=== PATIENT | female | born 1965 | race Caucasian/White ===

== ENCOUNTER 2016-03-26 11:43 | Emergency (ER) | payer BC ==
[2016-03-26 11:48] VITALS: BP 163/97
--- NOTE | 2016-03-26 13:07 | RAD ---
Indication: LEFT knee pain post fall. Comparison: None. Technique: AP, tunnel, lateral, sunrise views LEFT knee. Report: Small suprapatellar joint effusion. Subtle irregular contour at the undersurface of the patella on the lateral view may reflect an an osteochondral fracture. Minimal osteophytosis without significant joint space narrowing. Mild anterior soft tissue swelling. IMPRESSION: Small suprapatellar joint effusion and suggestion of potential osteochondral fracture at the undersurface of the patella. Correlate with clinical data and consider MRI for further assessment if deemed appropriate.
--- NOTE | 2016-04-02 15:35 | ED ---
Lower Extremity - HPI Summary HPI Summary: Pt here w/ fall and B/L knee pain Lt > Rt. Was sitting in her 's hospital room and when she stood to move, her foot got caught in a wire and she tripped forward, landing on her knees. Was able to stand and walk after however pain in Lt knee is persisting so decided to be seen for medical evaluation. Lt knee pain is worse w/ flexion and extension. No karol swelling or deformity and denies numbness, tingling, weakness. No known h/o knee pathology prior to fall. Rt knee is just a little sore but pain is not worse w/ movement. Denies injury to UE's and no pain in head or neck. She does admit to neuropathy in B/L feet d/ t diabetes. - History of Current Complaint Chief Complaint: EDExtremityLower Stated Complaint: FALL / LT KNEE INJURY Time Seen by Provider: 03/26/16 12:26 Hx Obtained From: Patient Pain Intensity: 6 Pain Scale Used: 0-10 Numeric - Allergies/Home Medications Allergies/Adverse Reactions: Allergies Allergy/AdvReac Type Severity Reaction Status Date / Time Penicillins AdvReac Rash Verified 03/26/16 11:48 Pregabalin [From Lyrica] AdvReac Swelling Verified 03/26/16 11:48 PMH/Surg Hx/FS Hx/Imm Hx Previously Healthy: Yes Endocrine/Hematology History: Reports: Hx Diabetes Denies: Hx Anticoagulant Therapy, Hx Blood Disorders Musculoskeletal History: Denies: Hx Arthritis Neurological History: Reports: Other Neuro Impairments/Disorders - Neuropathy both feet Infectious Disease History: No Infectious Disease History: Denies: Traveled Outside the [place] in Last 30 Days - Social History Lives: With Family - Alcohol Use: Rare Substance Use Type: Reports: None Smoking Status (MU): Former Smoker Type: Cigarettes Review of Systems Negative: Photophobia, Blurred Vision, Diplopia Negative: Dental Pain Negative: Chest Pain Negative: Shortness Of Breath Negative: Vomiting, Nausea Negative: hematuria, incontinence Musculoskeletal: Other - see HPI Negative: Rash, Bruising Negative: Weakness, Paresthesia, Numbness Positive: Anxious All Other Systems Reviewed And Are Negative: Yes Physical Exam Triage Information Reviewed: Yes Vital Signs On Initial Exam: Initial Vitals Temp Pulse Resp BP Pulse Ox 97.3 F 86 16 163/97 100 03/26/16 11:46 03/26/16 11:46 03/26/16 11:46 03/26/16 11:46 03/26/16 11:46 Vital Signs Reviewed: Yes Appearance: Positive: Well-Appearing, No Pain Distress - concerned - declines pain medication Skin: Positive: Warm, Dry - no erythema, no ecchymosis over affected area on Rt and Lt anterior knees - no skin change above or below as well Head/Face: Positive: Normal Head/Face Inspection Eyes: Positive: Normal, EOMI, Conjunctiva Clear ENT: Positive: Hearing grossly normal, Pharynx normal Respiratory/Lung Sounds: Positive: Breath Sounds Present Cardiovascular: Positive: Normal, Pulses are Symmetrical in both Upper and Lower Extremities. Negative: Leg Edema Left, Leg Edema Right Musculoskeletal: Positive: Strength/ROM Intact - pain w/ Lt knee joint flexion and extension Neurological: Positive: Sensory/Motor Intact - pt reports decreased sensation in B/L feet which is baseline for her - nothing worse/different than usual, Alert, Oriented to Person Place, Time, CN Intact II-III Psychiatric: Positive: Anxious - upset about her condition as her is in ICU w/ an unexpected outcome of what seemed to be a mild head injury - reports she can't afford to have anything wrong with herself right now Diagnostics - Vital Signs Vital Signs Temp Pulse Resp BP Pulse Ox 03/26/16 13:59 17 03/26/16 11:46 97.3 F 86 16 163/97 100 - Laboratory Lab Statement: Any lab studies that have been ordered have been reviewed, and results considered in the medical decision making process. Lower Extremity Course/Dx - Course Course Of Treatment: Pt's Lt knee XR reveals "small suprapatellar joint effusion and suggestiong of possible osteochondral fracture at the undersurface of patella". Pt reports she has no h/o knee pain nor arthritis here. Since radiology suggests MRI if clinically warranted, placed pt in knee immobilizer and explained she needs to be non-weight bearing until cleared by PCP in the event this is a fracture. She voices understanding and will f/u as recommended. 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 Follow-up with PCP this week for MRI as recommended by radiologist. In the meantime, rest, ice, elevate, ibuprofen as needed for pain, keep immobilizer in place and remain non-weight bearing until cleared by PCP
== END 2016-03-26 13:59 | disposition home or self-care (01) ==
LOC: ED 11:43
DX: S89.92XA Unspecified injury of left lower leg, initial encounter (principal); W19.XXXA Unspecified fall, initial encounter; Y93.9 Activity, unspecified; Y92.9 Unspecified place or not applicable; Y99.9 Unspecified external cause status
CPT/HCPCS: 99282

== ENCOUNTER 2016-10-29 12:56 | Emergency (ER) | payer BC ==
[2016-10-29 15:07] LABS: Hematocrit 44 % (35-47); Hemoglobin 14.4 g/dl (12.0-16.0); Mean Corpuscular HGB Conc 33 g/dl (31-36); Mean Corpuscular Hemoglobin 29 pg (27-31); Mean Corpuscular Volume 87 fL (80-97); Mean Platelet Volume 9 um3 (7.4-10.4); Red Blood Count 5.03 10^6/ul (4.0-5.4); Red Cell Distribution Width 13 % (10.5-15)
[2016-10-29 15:23] LABS: Albumin 3.5 g/dL (3.2-5.2); BUN/Creatinine Ratio 15.5 (8-20); Calcium 8.9 mg/dL (8.6-10.3); EGFR African American 62.8 (>60); EGFR Non-African American 48.9 (>60); Globulin 4.1 g/dL (2-4); Potassium 3.8 mmol/L (3.5-5.0); Total Bilirubin 0.6 mg/dL (0.2-1.0); Total Protein 7.6 g/dL (6.4-8.9); Troponin I 0.01 ng/mL (<0.04)
[2016-10-29 15:29] LABS: Urine Bacteria Absent (Absent); Urine Bilirubin Negative (Negative); Urine Glucose 3+(>=500 mg/dL) (Negative); Urine Nitrite Negative (Negative)
[2016-10-29 15:54] VITALS: BP 170/85
[2016-10-29] MEDS ORDERED: Clindamycin CAP* 150 MG PO ONE (17:16)
[2016-10-29] MEDS ORDERED: DOXYcycline CAP(*) 100 MG PO ONE (17:27)
[2016-10-29] MEDS ORDERED: oxyCODONE/Acetamin 5/325 MG* TAB PO ONE (17:28)
--- NOTE | 2016-10-29 18:36 | ED ---
Skin Complaint - HPI Summary HPI Summary: 51F presents with possible infection of her vulva. She states the area started a bump like a week ago and has since then spread. She denies any fevers. She states the area has spread to her thigh. She state the area is very painful to sit. She does not have an obgyn. She denies any new products or shaving. She denies any bites or known ingrown hair. She is diabetic and has stopped one of her medications, invokina but is still using her insulin but is not taking her sugars or adjusting her insulin. She has been using sitz path and placing heat on the area. - History of Current Complaint Chief Complaint: EDExtremityLower Time Seen by Provider: 10/29/16 16:13 Stated Complaint: POSS INFECTION RT THIGH Pain Intensity: 10 - Allergy/Home Medications Allergies/Adverse Reactions: Allergies Allergy/AdvReac Type Severity Reaction Status Date / Time Penicillins AdvReac Rash Verified 03/26/16 11:48 Pregabalin [From Lyrica] AdvReac Swelling Verified 03/26/16 11:48 PMH/Surg Hx/FS Hx/Imm Hx Endocrine/Hematology History: Reports: Hx Diabetes Denies: Hx Anticoagulant Therapy, Hx Blood Disorders Musculoskeletal History: Denies: Hx Arthritis Neurological History: Reports: Other Neuro Impairments/Disorders - Neuropathy both feet Infectious Disease History: Denies: Traveled Outside the [place] in Last 30 Days - Family History Known Family History: Positive: Diabetes - Social History Alcohol Use: Rare Substance Use Type: Reports: None Smoking Status (MU): Former Smoker Type: Cigarettes Review of Systems Negative: Fever Negative: Chest Pain Negative: Shortness Of Breath Positive: Other - possible thigh infection All Other Systems Reviewed And Are Negative: Yes Physical Exam Triage Information Reviewed: Yes Vital Signs On Initial Exam: Initial Vitals Temp Pulse Resp BP Pulse Ox 97.0 F 104 20 175/90 97 10/29/16 12:57 10/29/16 12:57 10/29/16 12:57 10/29/16 12:57 10/29/16 12:57 Vital Signs Reviewed: Yes Appearance: Positive: Well-Appearing Skin: Positive: Warm, Dry, Other - fluctant mass on right side of vulva with surround erythema that reaches to thigh Head/Face: Positive: Normal Head/Face Inspection Eyes: Positive: Normal, EOMI, GRANT, Conjunctiva Clear ENT: Positive: Normal ENT inspection, Pharynx normal, TMs normal Respiratory/Lung Sounds: Positive: Clear to Auscultation, Breath Sounds Present Cardiovascular: Positive: Normal, RRR Abdomen Description: Positive: Nontender, Soft Bowel Sounds: Positive: Present - [place] Coma Scale Coma Scale Total: 15 Procedures - Incision and Drainage Site: right vulva Anesthesia: Local Instrument(s): Scalpel Diagnostics - Vital Signs Vital Signs Temp Pulse Resp BP Pulse Ox 10/29/16 17:49 18 10/29/16 15:53 98.2 F 96 14 170/85 99 10/29/16 14:31 99.3 F 97 16 164/85 96 10/29/16 14:23 99 10/29/16 12:57 97.0 F 104 20 175/90 97 - Laboratory Lab Results: Lab Results 10/29/16 10/29/16 10/29/16 Range/Units 14:53 14:53 14:53 WBC 13.0 H (3.5-10.8) 10^3/ul RBC 5.03 (4.0-5.4) 10^6/ul Hgb 14.4 (12.0-16.0) g/dl Hct 44 (35-47) % MCV 87 (80-97) fL MCH 29 (27-31) pg MCHC 33 (31-36) g/dl RDW 13 (10.5-15) % Plt Count 244 (150-450) 10^3/ul MPV 9 (7.4-10.4) um3 Neut % (Auto) 82.5 (38-83) % Lymph % (Auto) 9.9 L (25-47) % [place] % (Auto) 6.1 (1-9) % Eos % (Auto) 0.6 (0-6) % Baso % (Auto) 0.9 (0-2) % Absolute Neuts (auto) 10.7 H (1.5-7.7) 10^3/ul Absolute Lymphs (auto) 1.3 (1.0-4.8) 10^3/ul Absolute Monos (auto) 0.8 (0-0.8) 10^3/ul Absolute Eos (auto) 0.1 (0-0.6) 10^3/ul Absolute Basos (auto) 0.1 (0-0.2) 10^3/ul Absolute Nucleated RBC 0.02 10^3/ul Nucleated RBC % 0.1 INR (Anticoag Therapy) 0.93 (0.89-1.11) APTT 28.7 (26.0-36.3) seconds Sodium 126 L (133-145) mmol/L Potassium 3.8 (3.5-5.0) mmol/L Chloride 93 L (101-111) mmol/L Carbon Dioxide 26 (22-32) mmol/L Anion Gap 7 (2-11) mmol/L BUN 18 (6-24) mg/dL Creatinine 1.16 H (0.51-0.95) mg/dL Est GFR ( Amer) 62.8 (>60) Est GFR (Non-Af Amer) 48.9 (>60) BUN/Creatinine Ratio 15.5 (8-20) Glucose 380 H (70-100) mg/dL Lactic Acid (0.5-2.0) mmol/L Calcium 8.9 (8.6-10.3) mg/dL Total Bilirubin 0.60 (0.2-1.0) mg/dL AST 10 L (13-39) U/L ALT 8 (7-52) U/L Alkaline Phosphatase 69 (34-104) U/L Troponin I 0.01 (<0.04) ng/mL Total Protein 7.6 (6.4-8.9) g/dL Albumin 3.5 (3.2-5.2) g/dL Globulin 4.1 H (2-4) g/dL Albumin/Globulin Ratio 0.9 L (1-3) Urine Color Urine Appearance Urine pH (5-9) Ur Specific [place] (1.010-1.030) Urine Protein (Negative) Urine Ketones (Negative) Urine Blood (Negative) Urine Nitrate (Negative) Urine Bilirubin (Negative) Urine Urobilinogen (Negative) Ur Leukocyte Esterase (Negative) Urine WBC (Auto) (Absent) Urine RBC (Auto) (Absent) Ur Squamous Epith Cells (Absent) Urine Bacteria (Absent) Urine Glucose (Negative) 10/29/16 10/29/16 Range/Units 14:53 15:15 WBC (3.5-10.8) 10^3/ul RBC (4.0-5.4) 10^6/ul Hgb (12.0-16.0) g/dl Hct (35-47) % MCV (80-97) fL MCH (27-31) pg MCHC (31-36) g/dl RDW (10.5-15) % Plt Count (150-450) 10^3/ul MPV (7.4-10.4) um3 Neut % (Auto) (38-83) % Lymph % (Auto) (25-47) % [place] % (Auto) (1-9) % Eos % (Auto) (0-6) % Baso % (Auto) (0-2) % Absolute Neuts (auto) (1.5-7.7) 10^3/ul Absolute Lymphs (auto) (1.0-4.8) 10^3/ul Absolute Monos (auto) (0-0.8) 10^3/ul Absolute Eos (auto) (0-0.6) 10^3/ul Absolute Basos (auto) (0-0.2) 10^3/ul Absolute Nucleated RBC 10^3/ul Nucleated RBC % INR (Anticoag Therapy) (0.89-1.11) APTT (26.0-36.3) seconds Sodium (133-145) mmol/L Potassium (3.5-5.0) mmol/L Chloride (101-111) mmol/L Carbon Dioxide (22-32) mmol/L Anion Gap (2-11) mmol/L BUN (6-24) mg/dL Creatinine (0.51-0.95) mg/dL Est GFR ( Amer) (>60) Est GFR (Non-Af Amer) (>60) BUN/Creatinine Ratio (8-20) Glucose (70-100) mg/dL Lactic Acid 1.4 (0.5-2.0) mmol/L Calcium (8.6-10.3) mg/dL Total Bilirubin (0.2-1.0) mg/dL AST (13-39) U/L ALT (7-52) U/L Alkaline Phosphatase (34-104) U/L Troponin I (<0.04) ng/mL Total Protein (6.4-8.9) g/dL Albumin (3.2-5.2) g/dL Globulin (2-4) g/dL Albumin/Globulin Ratio (1-3) Urine Color Yellow Urine Appearance Cloudy Urine pH 5.0 (5-9) Ur Specific [place] 1.025 (1.010-1.030) Urine Protein 3+(>=500 mg/dl) H (Negative) Urine Ketones Trace H (Negative) Urine Blood 1+ H (Negative) Urine Nitrate Negative (Negative) Urine Bilirubin Negative (Negative) Urine Urobilinogen Negative (Negative) Ur Leukocyte Esterase Negative (Negative) Urine WBC (Auto) Trace(0-5/hpf) (Absent) Urine RBC (Auto) 1+(3-5/hpf) H (Absent) Ur Squamous Epith Cells Present H (Absent) Urine Bacteria Absent (Absent) Urine Glucose 3+(>=500 mg/dl) H (Negative) Result Diagrams: 10/29/16 14:53 10/29/16 14:53 Lab Statement: Any lab studies that have been ordered have been reviewed, and results considered in the medical decision making process. Course/Dx - Course Course Of Treatment: 51F presents with possible infection of her vulva. She states the area started a bump like a week ago and has since then spread. She denies any fevers. She states the area has spread to her thigh. She state the area is very painful to sit. She does not have an obgyn. She denies any new products or shaving. She denies any bites or known ingrown hair. She is diabetic and has stopped one of her medications, invokina but is still using her insulin but is not taking her sugars or adjusting her insulin. on exam has flauctant mass of right vulva with surround erythema. afebrile. wbc of 13. lactic normal. I&D abscess and copious amount of drainage. placed on doxcycline. told to follow up with obgyn. sugar ws 380. explained need to check sugars more often and use a sliding scale. patient understands and agrees with plan. - Differential Diagnoses - Skin Complaint Differential Diagnoses: Abscess, Cellulitis, Contact Dermatitis - Diagnoses Provider Diagnoses: Vulvar abscess Discharge - Discharge Plan Condition: Good Disposition: HOME Prescriptions: DOXYcycline CAP(*) [DOXYcycline 100MG CAP(*)] 100 mg PO BID #19 cap Patient Education Materials: Abscess (ED) Referrals: Prakash Barclay MD [Primary Care Provider] - Sujey Lucas MD [Medical Doctor] - Additional Instructions: Take antibiotic twice a day for 10 days Take with food, use sunscreen when go outside Perform sitz baths Follow up with obgyn Return to ED if develop fever or redness spreads after 2 days on antibiotic any new or worsening symptoms
== END 2016-10-29 19:36 | disposition home or self-care (01) ==
LOC: ED 12:56
DX: N76.4 Abscess of vulva (principal)
CPT/HCPCS: 36415; 80053; 81003; 81015; 83605; 84484; 85025; 85610; 85730; 87040; 99282; A9270-GY

== ENCOUNTER 2017-04-03 11:23 | Emergency (ER) | payer BC ==
[2017-04-03 11:55] VITALS: BP 178/100
--- NOTE | 2017-04-03 12:44 | UC ---
Respiratory Complaint HPI - HPI Summary HPI Summary: Patient presents with a past medical history of HTN, DM, and presents with complaints of recent respiratory illness and reports that she continued to have a persistent cough, and she also reports throat pain. She states that she has pain when she swallows, but is able to eat, drink and swallow her own secretions. She denies fever, chills, chest pain, dyspnea, abdominal pain, nausea, vomiting and diarrhea, rashes or joint pain. - History of Current Complaint Chief Complaint: UCGeneralIllness Stated Complaint: THROAT PAIN Time Seen by Provider: 04/03/17 12:29 Hx Obtained From: Patient Hx Last Menstrual Period: 04/03/17 Onset/Duration: Gradual Onset, Lasting Days Timing: Constant Severity Initially: Mild Severity Currently: Moderate Character: Cough: Nonproductive Aggravating Factors: Deep Breaths, Recumbent Position Alleviating Factors: Upright Position, Spontaneous Resolution Associated Signs And Symptoms: Positive: URI - Risk Factors Pulmonary Embolism Risk Factors: Negative Cardiac Risk Factors: Negative Pseudomonas Risk Factors: Negative Tuberculosis Risk Factors: Negative - Allergies/Home Medications Allergies/Adverse Reactions: Allergies Allergy/AdvReac Type Severity Reaction Status Date / Time Penicillins AdvReac Rash Verified 04/03/17 11:47 Pregabalin [From Lyrica] AdvReac Swelling Verified 04/03/17 11:47 Home Medications: Home Medications Ibuprofen [Ibuprofen 200 MG] 400 mg PO ONCE 04/03/17 [History Confirmed 04/03/17 ] PMH/Surg Hx/FS Hx/Imm Hx Previously Healthy: Yes Endocrine History: Diabetes Other History Of: Negative For: Anticoagulant Therapy - Surgical History Surgical History: Yes Surgery Procedure, Year, and Place: L foot surgery. L knee surgery - Family History Known Family History: Positive: Diabetes - Social History Occupation: Employed Part-time Lives: Alone Alcohol Use: Rare Substance Use Type: None Smoking Status (MU): Former Smoker Type: Cigarettes When Did the Patient Quit Smoking/Using Tobacco: 1994 - Immunization History Most Recent Influenza Vaccination: never Review of Systems Constitutional: Negative Skin: Negative Eyes: Negative ENT: Sore Throat, Ear Ache, Nasal Discharge Respiratory: Cough Cardiovascular: Negative Gastrointestinal: Negative Genitourinary: Negative Motor: Negative Psychological: Negative Is Patient Immunocompromised?: No All Other Systems Reviewed And Are Negative: Yes Physical Exam Triage Information Reviewed: Yes Appearance: Well-Appearing Vital Signs: Initial Vital Signs Temp 98.8 F 04/03/17 11:49 Pulse 89 04/03/17 11:49 Resp 18 04/03/17 11:49 BP 178/100 04/03/17 11:49 Pulse Ox 99 04/03/17 11:49 Vital Signs Reviewed: Yes Eye Exam: Normal ENT: Positive: Pharyngeal erythema, Nasal congestion, Tonsillar swelling, Uvula midline Dental Exam: Normal Neck exam: Normal Neck: Positive: 1 Respiratory Exam: Normal Cardiovascular Exam: Normal Abdominal Exam: Normal Musculoskeletal Exam: Normal Skin Exam: Normal UC Diagnostic Evaluation - Laboratory O2 Sat by Pulse Oximetry: 99 Respiratory Course/Dx - Course Course Of Treatment: Patient presents s/p respiratroy illness with persistent coughing, lung da silva were clear,and the patient was in no respiratroy distress. She also has sore throat with erythmic edematous tonsils. She was treated for reactive airway, and pharyngitis. She was RX zpk, prednisone, and wanted to continue her robitussin DM. She declined albuterol. She was discharged home in stable condition, and verbalized understanding of and in a greement with the discharge plan. - Differential Dx/Diagnosis Differential Diagnosis/HQI/PQRI: Other - pharyngitis reactive airway Provider Diagnoses: pharyngitis. reactive airway disease Discharge - Discharge Plan Condition: Stable Disposition: HOME Prescriptions: Azithromycin TAB* [Zithromax TAB (Z-BERNA) 250 mg #6 tabs] 250 mg PO DAILY #6 tab predniSONE TAB* [Deltasone TAB*] 20 mg PO BID #10 tab Patient Education Materials: Pharyngitis (ED), Reactive Airways Disease (ED) Referrals: No Primary Care Phys,NOPCP [Primary Care Provider] -
== END 2017-04-03 12:45 | disposition home or self-care (01) ==
LOC: UCEAST 11:23
DX: J02.9 Acute pharyngitis, unspecified (principal); J45.909 Unspecified asthma, uncomplicated; E11.9 Type 2 diabetes mellitus without complications; I10 Essential (primary) hypertension; Z87.891 Personal history of nicotine dependence
CPT/HCPCS: 99212; G0463

== ENCOUNTER 2017-10-18 11:35 | Day surgery (SDC) | payer BC ==
[~2017-10-18 11:35] MED LIST: Acetaminophen TAB* 325 MG PO PRN; Buffered Lidocaine 0.9% SYRIN* 5 ML/SYR SYRINGE INTRADERM ONE
[2017-10-18] MEDS ORDERED: Lidocaine 1%* 5 ML VIAL ONE (12:20)
[2017-10-18] MEDS ORDERED: Neomycin/Polymy/Dex OPHTH.OIN* 3.5 GM ONE (12:20)
[2017-10-18] MEDS ORDERED: Tetracaine 0.5% OPTH.SOL 4 ML* 1 DROP BTL ONE (12:20)
[2017-10-18] MEDS ORDERED: Cyclopentolate 1% OPTH.SOL* 2 ML BTL ONE (12:20)
[2017-10-18] MEDS ORDERED: Phenylephrine 2.5% OPTH.SOL* 2 ML BTL ONE (12:20)
[2017-10-18] MEDS ORDERED: Ketorolac 0.5% OPHTH (NF) 0.5 % 5 ML BTL ONE (12:20)
[2017-10-18] MEDS ORDERED: Tropicamide 1% OPTH.SOL* BTL ONE (12:20)
[2017-10-18] MEDS ORDERED: Phenylephr/Ketorolac 1%/0.3% OPH DROP BTL ONE (12:21)
[2017-10-18] MEDS ORDERED: Trypan Blue 0.06% SOL* 0.5 ML BTL ONE (12:21)
[2017-10-18] MEDS ORDERED: Insulin REGULAR(*) 1 UNITS UNIT IV PUSH ONE (12:27)
[2017-10-18] MEDS ORDERED: Insulin LISPRO* 1 UNITS UNIT SUBCUT ONE (12:36)
[2017-10-18] MEDS ORDERED: Midazolam* 1 MG/ML 2 ML VIAL (2 MG) ONE (12:54)
[2017-10-18 13:54] VITALS: BP 152/96
--- NOTE | 2017-10-19 05:22 | OP ---
DATE OF OPERATION: 10/18/17 - [facility] DATE OF : 61 SURGEON: Dr. Danny Wallace. DIRECTOR OF ASSESSING: None. ANESTHESIA: Topical with intravenous sedation. PRE-OP DIAGNOSIS: Hypermature white cataract, left eye. POST-OP DIAGNOSIS: Hypermature white cataract, left eye. OPERATIVE PROCEDURE: Phacoemulsification and cataract extraction with posterior chamber intraocular lens implant, left eye. COMPLICATIONS: None. DESCRIPTION OF PROCEDURE: The patient was brought to the operating room and given intravenous sedation. A drop of tetracaine was placed in her left eye. The patient was prepped and draped in the usual sterile fashion for ophthalmic surgery and attention was directed to the left eye where a speculum was placed. The patient was noted to have a white cataract. Omidria was placed into the irrigating solution and VisionBlue dye was prepared. A paracentesis was created at the 5 o'clock position and 0.1 cc of 1% preservative-free Lidocaine was injected into the anterior chamber followed by air. This was followed by VisionBlue dye and then DisCoVisc. The eye was stabilized digitally and a 2.75 mm keratome was used to create a triplanar clear corneal incision at the 3 o'clock position. A cystotome was used to initiate the capsulorrhexis but, as anticipated, once the anterior capsule was violated, the pressure from within began to push and separate the opening in the rhexis into a linear direction. Quickly, an irrigating and aspirating instrument was placed to remove some of the lens material and reduce the pressure. In addition, further viscoelastic was placed anterior to the lens. At this point, a cystotome was reintroduced into the eye and a relatively round capsulorrhexis was fashioned with split as previously mentioned before extending radially in two directions. Gentle hydrodissection of the lens with BSS on the cannula was performed. Phacoemulsification was performed in a [id number] technique. Four quadrants were gently and removed from the eye. Residual cortical material, of which there was little, was gently aspirated from the capsule. The capsule remained intact and the radial tears did not extend. The capsular bag was filled with DisCoVisc and an AUOOTO 22.5 diopter lens was inserted into the capsular bag. The haptics were positioned perpendicular to the radial tears. Viscoelastic was removed from the eye with gentle irrigation and aspiration. BSS on a cannula was used to hydrate the corneal stroma and seal the wound. At the end of the case, the pupil was round. The lens was centered and stable. The capsular bag was intact. The eye pressure appeared normal and the wound was water tight. The speculum was removed from the eye and topical Maxitrol ointment was placed on the surface. The eye was closed, patched, and shielded, and the patient was sent to the recovery room in stable condition with postoperative instructions and followup appointment given. [id number]/[facility] #: [id number] NOEMY
== END 2017-10-18 13:58 | disposition home or self-care (01) ==
LOC: OREAST 11:35
PROVIDERS: ATTEND Ophthalmology
DX: H25.041 Posterior subcapsular polar age-related cataract, right eye (principal); Z88.0 Allergy status to penicillin; E11.40 Type 2 diabetes mellitus with diabetic neuropathy, unspecified; N18.2 Chronic kidney disease, stage 2 (mild); E78.2 Mixed hyperlipidemia; Z87.891 Personal history of nicotine dependence; Z79.4 Long term (current) use of insulin; E11.319 Type 2 diabetes mellitus with unspecified diabetic retinopathy without macular edema; I12.9 Hypertensive chronic kidney disease with stage 1 through stage 4 chronic kidney disease, or unspecified chronic kidney disease
CPT/HCPCS: A9270-GY; C9447; J2250; V2632

== ENCOUNTER 2017-10-19 11:31 | Observation (INO) | payer BC ==
[2017-10-19] MEDS ORDERED: NS 0.9% 1000 ML* 1,000 ML IV ONE (11:43)
[2017-10-19] MEDS ORDERED: Labetalol IV* 5 MG/ML 20 ML VIAL IV PUSH ONE (11:44)
--- NOTE | 2017-10-19 11:49 | ED ---
Neurological HPI - HPI Summary HPI Summary: This is Angel Deleon documenting for attending Inocente Mello MD. Pt JUNIOR is a 52 y/o F p/w neurological deficit onset ~1 day ago, yesterday AM. Numbness started in bilat LE and radiated up sides to LUE and bilat face/mouth. Pt was scheduled for 12:15 cataract surgery yesterday when she woke starting with LE numbness/weakness that gradually radiated up her body to bilat face and mouth. 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 She states that Sx have resolved since ambulance ride but suffers from neuropathy in her feet so bilat pedal numbness remains. PMHx: DM, HTN, denies stroke. She notes that she was just started for medicine to treat her HTN. - History of Current Complaint Stated Complaint: FACIAL NUMBNESS Time Seen by Provider: 10/19/17 11:34 Hx Obtained From: Patient Hx Last Menstrual Period: 04/03/17 Onset/Duration: Gradual Onset, Started days ago - second episode, 1 day ago in AM, Started weeks ago - First episode, Resolved - ANESTHESIA ASSISTANT, Worse Since - This AM Timing: Intermittent Episodes Lasting: Neurological Deficit Location: Generalized - radiating up bilat sides, Facial - bilat, RLE, LLE Alleviating: Rest Associated Signs and Symptoms: Positive: Weakness - bilat LE, Numbness - bilat facial and LE - Allergy/Home Medications Allergies/Adverse Reactions: Allergies Allergy/AdvReac Type Severity Reaction Status Date / Time Penicillins Allergy Rash Verified 10/18/17 12:10 pregabalin Allergy Swelling Verified 10/18/17 12:10 Home Medications: Home Medications Ketorolac 0.5% OPHTH (NF) 1 drop OPHTHALMIC QID 10/19/17 [History Confirmed 04/07] Losartan TAB* [Cozaar TAB*] 50 mg PO DAILY 10/19/17 [History Confirmed 10/19/17] Ranibizumab [Lucentis] 0.5 mg IM .EVERY 6 WEEKS 10/19/17 [History Confirmed 04/07] Tobramycin/Dexameth OPTH.SUSP* [Tobradex 0.3-0.1%*] 1 drop OPHTHALMIC Q4H [History Confirmed 10/19/17] prednisoLONE 1% OPHTH.SUSP* [Pred Forte 1%*] 1 drop OPHTHALMIC BID 10/19/17 [ History Confirmed 10/19/17] PMH/Surg Hx/FS Hx/Imm Hx Endocrine/Hematology History: Reports: Hx Diabetes - TYPE 2 ON INSULIN Denies: Hx Anticoagulant Therapy, Hx Blood Disorders Cardiovascular History: Reports: Hx Hypertension - ON MEDS Musculoskeletal History: Denies: Hx Arthritis Sensory History: Reports: Hx Cataracts - BILATERAL, Hx Contacts or Glasses - GLASSES, BUT STATES CAN'T SEE R/T BILATERAL M/D & CATARACTS Opthamlomology History: Reports: Hx Cataracts - BILATERAL, Hx Contacts or Glasses - GLASSES, BUT STATES CAN'T SEE R/T BILATERAL M/D & CATARACTS Neurological History: Reports: Other Neuro Impairments/Disorders - Neuropathy both feet, CONSTANT PAIN Psychiatric History: Comment Only: Hx Anxiety - VERY ANXIOUS R/T MEDICAL SITUATION (VISION LIMITED ) - Surgical History Surgery Procedure, Year, and Place: 2012 L foot surgery [facility]. 1997 L knee surgery TUMOR REMOVED ABURN Hx Anesthesia Reactions: No - Family History Known Family History: Positive: Diabetes - Social History Occupation: Employed Full-time Lives: With Family Alcohol Use: None Substance Use Type: Reports: None Smoking Status (MU): Former Smoker Type: Cigarettes Amount Used/How Often: FEW CIGS/DAYS Length of Time of Smoking/Using Tobacco: FEW YEARS YOUNG ADULT Have You Smoked in the Last Year: No Review of Systems Negative: Fever Positive: Weakness - bilat LE, Numbness - bilat LE radiating to bilat sides and face All Other Systems Reviewed And Are Negative: Yes Physical Exam - Summary Physical Exam Summary: GENERAL: Patient is a well developed and nourished F who is lying comfortable in the stretcher. Patient is not in any acute respiratory distress. HEAD AND FACE: Normocephalic EYES: PERRLA, EOMI x 2. EARS: Hearing grossly intact. MOUTH: Oropharynx within normal limits. NECK: Supple, trachea is midline, no adenopathy, no JVD, no carotid bruit. CHEST: Symmetric, no tenderness at palpation LUNGS: Clear to auscultation bilaterally. No wheezing or crackles. CVS: Regular rate and rhythm, S1 and S2 present, no murmurs or gallops appreciated. ABDOMEN: Soft, non-tender. Bowel sounds are normal. No abdominal abnormal pulsations. EXTREMITIES: Full ROM in all major joints, no edema, no cyanosis or clubbing. NEURO: Alert and oriented x 3. No acute neurological deficits. Speech is normal and follows commands. SKIN: Dry and warm Neuro exam extended: Cranial nerves II-XII grossly intact, no dysmetria finger to nose, nml heel to moseley Triage Information Reviewed: Yes Vital Signs Reviewed: Yes Diagnostics - Laboratory Result Diagrams: 10/19/17 11:59 10/19/17 11:59 Lab Statement: Any lab studies that have been ordered have been reviewed, and results considered in the medical decision making process. - Radiology CXR Xray Interpretation: No Acute Changes - IMPRESSION: No active cardiopulmonary disease. Radiology Interpretation Completed By: Radiologist - Report has been reviewed by provider. - CT Brain CT Interpretation: Positive (See Comments) - IMPRESSION: SMALL, AGE- INDETERMINATE LACUNAR INFARCT OF THE RIGHT CAUDATE HEAD. CT Interpretation Completed By: Radiologist - report has been reviewed by provider. 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 CT Interpretation Completed By: Radiologist - provider has reviewed report. - Ultrasound No standard instances Ultrasound Interpretation: No Acute Changes - IMPRESSION: There is no sonographic evidence of hemodynamically significant stenosis in the bilateral carotid arteries. Ultrasound Interpretation Completed By: Radiologist - provider has reviewed report. - EKG 1212 Cardiac Rate: NL - 93 bpm EKG Rhythm: Sinus Rhythm ST Segment: Normal EKG Interpretation: Q waves identified, nml axis. 1349 Cardiac Rate: Tachycardia - 102 bpm EKG Interpretation: Q-waves seen in inferior leads EKG Comparison: Other - Previous EKG (1212), this date. NIH Scale - NIH Scale Level of Consciousness: Alert/Keenly Responsive Ask Patient the Month and His/Her Age: Both Correct Ask Pt to Open/Close Eyes and Hand Bander/Release Non-Paretic Hand: Both Correctly Best Gaze (Only Horizontal Eye Movement): Normal Visual Field Testing: No Visual Loss Facial Paresis-Pt to Smile & Close Eyes or Grimace Symmetry: Normal/Symmetrical Motor Function - Right Arm: No Drift-Holds 10 Seconds Motor Function - Left Arm: No Drift-Holds 10 Seconds Motor Function - Right Leg: No Drift-Holds 10 Seconds Motor Function - Left Leg: No Drift-Holds 10 Seconds Limb Ataxia-Must be out of Proportion to Weakness Present: Absent Sensory (Use Pinprick to Test Arms/Legs/Trunk/Face): Normal Best Language (Describe Picture, Name Items): No Aphasia Dysarthria (Read Several Words): Normal Extinction and Inattention: No Abnormality Total Score: 0 Course/Dx - Course Course Of Treatment: A 52-year-old female who presents to the emergency room with left-sided numbness that started yesterday but resolved but started again this morning although it also resolved by the time she presents to the ED. NIH scale at the time of my evaluation was estimated to be 0 and so I did not call a code [place]. CT scan of the head shows right-sided infarction in the cuadate. I consulted neurology and spoke with Dr. Khan who came and saw patient at bedside and recommended calling a code [place] to expedite the CT angiogram. CT angiogram was subsequently obtained which shows 60% basilar artery stenosis. Dr. Khan consulted the vascular team at [facility] who said that they would not intervene at this time and so the decision was made to admit the patient here to the hospitalist team. Patient was given Plavix, aspirin. Her labs are within acceptable limits. Patient admitted in stable condition. Pt BIBA is a 52 y/o F p/w neurological deficit onset ~1 day ago, yesterday AM. Workup is remarkable/unremarkable with __. Her dictation. The patient will be admitted/ discharged. D/C - I discussed results with patient and he/she agrees with this plan. He/She is hemodynamically stable upon discharge. Strict return precautions given and he/she will otherwise follow up with his/her PCP. admit - Case discussed with hospitalist. I discussed results with patient. The patient agrees with this plan. - Differential Dx Differential Diagnoses Neuro: Positive: Other - Numbness - Diagnoses Provider Diagnoses: CVA (cerebral vascular accident) - Physician Notifications Discussed Care Of Patient With: Pedro Khan Time Discussed With Above Provider: 13:40 Instructed by Provider To: Other - Discussed care of pt with Dr. Khan. He is going to call [facility] to see if she can be accepted. If she is not accepted for transfer, she will stay at [facility] - Critical Care Time Critical Care Time: 30-74 min Discharge - Sign-Out/Discharge Documenting (check all that apply): Patient Departure - Discharge Plan Condition: Stable Disposition: ADMITTED TO [facility] Referrals: Prakash Barclay MD [Primary Care Provider] - 3 Days Additional Instructions: Follow up with your primary care physician in 1-3 days. RETURN TO THE EMERGENCY DEPARTMENT FOR CHANGING OR WORSENING SYMPTOMS. - Billing Disposition and Condition Condition: STABLE Disposition: Admitted to [facility]
--- NOTE | 2017-10-19 12:19 | RAD ---
HISTORY: Neurological changes/code soliman COMPARISONS: None TECHNIQUE: Multiple contiguous axial CT scans were obtained of the head without intravenous contrast. FINDINGS: HEMORRHAGE/INFARCT: There is a small age-indeterminate lacunar infarct of the right caudate head. Elsewhere, there is no hemorrhage or acute infarct. MASSES/SHIFT: There is no mass or shift. EXTRA-AXIAL SPACES: There are no extra-axial fluid collections. SULCI AND VENTRICLES: The sulci and ventricles are normal in size and position for the patient's stated age. CEREBRUM: There is a small, age-indeterminate lacunar infarct of the right caudate head. BRAINSTEM: There are no focal parenchymal abnormalities. CEREBELLUM: There are no focal parenchymal abnormalities. VESSELS: The vessels are grossly normal. PARANASAL SINUSES: The paranasal sinuses are clear. ORBITS: The orbits are unremarkable. BONES AND SOFT TISSUE: No bone or soft tissue abnormalities are noted. OTHER: None IMPRESSION: SMALL, AGE-INDETERMINATE LACUNAR INFARCT OF THE RIGHT CAUDATE HEAD.
--- OUTSIDE RECORDS SUMMARY | 2017-10-19 12:19 | XMS REPORT ---
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 Yao Eagle 2009 [id number] Expires: 2010 PayID: [id number] LEE Iglesias [id number] TRINY Truong 51349 Medigap Part B Effective: 2010 Policy Number: ASHER Eagle [id number] Expires: 2013 PayID: [id number] LEE Iglesias [id number] TRINY Fox 77406 Workers Compensation Onset: 2010 Policy Number: State Eric Eagle [id number] PayID: [id number] Problems Date Description Provider Status Onset: 06/16/2010 Neurologic disorder associated Prakash Barclay, Active with type 2 diabetes mellitus Scooter,FACP Onset: 06/16/2010 Proliferative diabetic Prakash Barclay Active retinopathy Scooter,FACP Onset: 12/09/2010 Type II diabetes mellitus Prakash Barclay, Active uncontrolled Scooter,FACP Onset: 12/09/2010 Mixed hyperlipidemia Prakash Barclay Active Scooter,FACP Onset: 10/26/2013 Chronic kidney disease stage 2 Ava Colón M.D.,FACP Family History Date Family Member(s) Problem(s) Comments Father due to asbestosis () Father Diabetes, Non Insulin Dependent Mother Obesity Children None Siblings 5 First Brother HIV Second Sister Diabetes, Non Insulin Dependent CVA at 55 Social History Type Date Description Comments Marital Status 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 Cigarette Use Former Cigarette Smoker 1-5 Cigarettes Daily Cigarette Use Quit 17 Years Ago ETOH Use Rarely consumes alcohol Smoking Patient is a former smoker Recreational Drug Use Denies Drug Use Allergies, Adverse Reactions, Alerts Date Description Reaction Status Severity Comments 05/01/2010 Penicillin rash active Medications Medication Date Status Form Strength Qnty SIG Indications Ordering Provider Losartan 09/26/ Active Tablets 50mg 30tabs Take One I10 Zack Potassium 2018 Tablet By SANTIAGO Parks Mouth Every Day Isabela Breeze 2 01/25/ Active Disk 2Test 50unit test two E11.65 Izaiah Walker Test 2016 s times a Real Barclay, micaela as Scooter,ANNY needed Sure Comfort 08/23/ Active 100uni Use Once Prakash 31G Pen Needle 2014 ts Daily Real Barclay M.D.,FACP Breeze 2 Blood 06/05/ Active Device 1units for [place] Glucose 2014 checking [place]achikara, Monitoring bid MIoana System Levemir 01/07/ Active Solution 100Unit/ML 15ml inject 20 E11.40 Zack Flextouch 2014 Pen-Inject units SANTIAGO Parks under the skin daily Advil 10/26/ Active Tablets 200mg 1-2 as Prakash 2014 needed Real Barclay M.D.,FACP T.E.D. 10/25/ Active Misc 2units please fit 782.3 Richelle Anti-Embolism 2012 Edilberto, Stockings Knee N.P. Length Pen [place] 10/28/ Active Misc 31G X 6 mm 30unit every day E11.40 Zack 31G X 6mm 2010 s SANTIAGO Parks Isabela Lancets 05/01/ Active 50unit bid prn 250.02 Prakash 2010 s Real Barclay M.D.,FACP Lucentis / Active Solution 0.5mg/0.05 1 q 6weeks Unknown 0000 ML B-12 / Active Tablets 500mg 90tabs 1 by mouth Unknown (Methylcobalam 0000 Sub every day in) Victoza 04/07/ Hx Solution 18mg/3ML 6ml 0.6 mg SC Prakash 2017 - Pen-Inject qd for 1 DJorge Barclay, 09/26/ wk then M.DJorge,FACP 2018 inject 1.2 mg under the skin daily Keflex 01/11/ Hx Capsules 500mg 40caps one tablet Other 2016 - qid x 10 Ordering 04/07/ days Provider 2017 Glipizide ER 03/17/ Hx Tablets ER 10mg 60tabs take one E11.40 Kei 2015 - 24HR tablet by SANTIAGO Chun 04/07/ mouth 2017 daily in am Isabela Contour 03/28/ Hx Strips 50unit use two E11.65 Kei Blood Glucose 2014 - s times a SANTIAGO Chun Test Strips day as 2017 needed Losartan 12/06/ Hx Tablets 50mg 30tabs Take One Prakash Edwards 2013 - Tablet By Real Barclay, 03/17/ Mouth M.DJorge,FACP 2014 Every Day Losartan 11/02/ Hx Tablets 50mg 30tabs 1 by mouth 250.62 Prakash Potassium 2013 - every day Real Barclay, M.D.,FACP 2013 Ramipril 10/26/ Hx Capsules 5mg 90caps by mouth 250.62 Prakash 2013 - every day Real Barclay, M.D.,FACP 2013 Invokana 10/26/ Hx Tablets 300mg 30tabs take one E11.40 Kei 2013 - tablet by SANTIAGO Chun mouth 2017 every day Invokana 09/14/ Hx Tablets 100mg 30tabs 1 by mouth 250.62 Prakash 2013 - every day Real Barclay, M.D.,FACP 2013 Ramipril 09/14/ Hx Capsules 2.5mg 30caps 1 by mouth 250.62 Prakash 2013 - every day Real Barclay, M.D.,FACP 2014 Sure Comfort 04/04/ Hx 100uni Use Once Prakash 31G Pen Needle 2012 - ts Daily Real Barclay, M.DJorge,FACP 2013 Simvastatin 02/01/ Hx Tablets 20mg 90tabs 1 po qpm 250.02 Prakash Barclay, 09/14/ Scooter,FACP 2014 Ramipril 02/01/ Hx Capsules 5mg 30caps Take One 250.02 Prakash 2011 - Capsule By Real Barclay, 09/14/ Mouth M.Real,FACP 2014 Every Day Simvastatin 10/27/ Hx Tablets 10mg 30tabs take 1 Richelle 2011 - tablet by Edilberto, 02/01/ mouth at N.P. 2012 bedtime Furosemide 10/25/ Hx Tablets 20mg 15tabs 1 po qam 782.3 Richelle 2011 - Edilberto, 09/14/ N.P. 2014 Avelox 04/01/ Hx Tablets 400mg 10tabs 1 po daily 681.9 Michelle 2011 - Justin, 04/30/ M.D. 2011 Ibuprofen 04/01/ Hx Tablets 600mg 90tabs 1 tab by 681.9 Prakash 2011 - mouth Real Barclay, 10/26/ three MIoana,FACP 2014 times a day prn Simvastatin 12/09/ Hx Tablets 20mg 90tabs 1 po qpm 272.2 Prakash Barclay, 03/25/ Scooter,FACP 2011 Levemir 10/28/ Hx Solution 100Unit/ML 15unit Inject 20 250.62 Richelle Flexpen 2010 - s Units Edilberto, 01/07/ Under The N.P. 2013 Skin Every 24 Hours Glimepiride 06/16/ Hx Tablets 1mg 30tabs 1 po qd 250.62 Prakash Barclay, 07/29/ Scooter,FACP 2010 Gabapentin 06/16/ Hx Tablets 300mg 150tab 1 tab tid 250.62 Prakash 2010 - s plus 2 qhs Real Barclay, 07/29/ Scooter,FACP 2010 Cymbalta 06/16/ Hx Caps DR 30mg 45caps 1 po qam 250.62 Prakash 2010 - Part for 2 wks, Real Barclay, 10/28/ then 2 qAM MIoana,FACP 2010 Metformin 06/08/ Hx 500mg 1 po bid 250.02 Prakash Barclay, 06/16/ Scooter,FACP 2010 Januvia 06/03/ Hx Tablets 100mg 30tabs Take One Prakash 2010 - Tablet By Real Barclay, 09/14/ Mouth Scooter,FACP 2013 Every Day Gabapentin 05/14/ Hx Capsules 100mg 200cap 2 tid plus 250.62 Prakash 2010 - s 3 qhs Real Barclay, 06/16/ Scooter,FACP 2010 Metformin HCL 05/14/ Hx Tablets 1000mg 60tabs 1 po bid 250.02 Prakash Barclay, 06/08/ Scooter,FACP 2010 Metformin HCL 05/01/ Hx Tablets 500mg 60tabs 1 po bid 250.02 Prakash Barclay, 05/14/ Scooter,FACP 2010 Isabela Breeze 2 05/01/ Hx Disk 2Test 50unit Use Two 250.02 Prakash Test Disc 2010 - s Times A Real Barclay, 03/28/ Day as Scooter,FACP 2014 Needed Samuel-Tab / Hx Tablets DR 250mg po qid Unknown 0000 - 2010 Metanx /00/ Hx Tablets 3-35-2mg PO bid 250.02 Unknown 0000 - 2011 Vitamin B-12 / Hx Tablets 500mcg 30tabs 1 by mouth Unknown 0000 - Sub every day 2013 Metanx 00/00/ Hx Capsules 3-90.314-2 60caps 1 by mouth Unknown 0000 - -35mg bid every 12/20/ 2013 Immunizations CPT Code Status Date Vaccine Lot # [id number] Refused 02/02/2012 Pneumonia Vaccine [id number] Refused 02/02/2012 Influenza Virus 3Yrs & Over [id number] Refused 03/25/2011 Influenza Virus 3Yrs & Over 81045 Refused 12/09/2010 Influenza Virus 3Yrs & Over 10615 Refused 05/14/2010 Influenza Virus 3Yrs & Over Vital Signs Date Vital Result Comment 09/26/2017 Height 65.5 inches 5'5.50" Weight 225.25 lb Heart Rate 97 /min BP Systolic 152 mmHg left arm BP Diastolic 100 mmHg left arm BP Systolic Sitting 146 mmHg right arm BP Diastolic Sitting 102 mmHg right arm BP Systolic Recheck 154 mmHg BP Diastolic Recheck 98 mmHg Body Temperature 97.6 F O2 % BldC Oximetry 95 % BMI (Body Mass Index) 36.9 kg/m2 04/07/2016 Weight 238.12 lb Heart Rate 96 /min BP Systolic Sitting 156 mmHg BP Diastolic Sitting 84 mmHg Body Temperature 97.9 F O2 % BldC Oximetry 97 % 03/17/2015 Height 65.5 inches 5'5.50" Weight 239.50 lb Heart Rate 76 /min BP Systolic Sitting 170 mmHg Recheck bp 170/96 BP Diastolic Sitting 108 mmHg Recheck bp 170/96 Body Temperature 96.9 F O2 % BldC Oximetry 98 % BMI (Body Mass Index) 39.2 kg/m2 03/07/2014 Weight 246.50 lb Heart Rate 67 /min BP Systolic Sitting 138 mmHg BP Diastolic Sitting 84 mmHg Body Temperature 97.2 F O2 % BldC Oximetry 96 % 12/06/2013 Weight 241.00 lb Heart Rate 84 /min BP Systolic Sitting 128 mmHg BP Diastolic Sitting 82 mmHg Body Temperature 97.4 F 10/26/2013 Weight 241.25 lb Heart Rate 100 /min BP Systolic Sitting 146 mmHg BP Diastolic Sitting 100 mmHg Body Temperature 97.5 F 09/14/2013 Height 65.5 inches 5'5.50" Weight 249.75 lb Heart Rate 80 /min BP Systolic Sitting 148 mmHg BP Diastolic Sitting 112 mmHg Body Temperature 98.4 F BMI (Body Mass Index) 40.9 kg/m2 02/02/2012 Height 65.5 inches 5'5.50" Weight 243.00 lb Heart Rate 92 /min BP Systolic Sitting 172 mmHg BP Diastolic Sitting 108 mmHg BMI (Body Mass Index) 39.8 kg/m2 10/26/2011 Height 65.25 inches 5'5.25" Weight 245.00 lb Heart Rate 84 /min BP Systolic Sitting 126 mmHg BP Diastolic Sitting 78 mmHg Body Temperature 98.4 F lt ear BMI (Body Mass Index) 40.5 kg/m2 06/24/2011 Height 65.25 inches 5'5.25" Weight 237.00 lb Heart Rate 78 /min BP Systolic Sitting 118 mmHg lg cuff BP Diastolic Sitting 84 mmHg lg cuff BMI (Body Mass Index) 39.1 kg/m2 05/06/2011 Height 65.25 inches 5'5.25" Weight 237.75 lb Heart Rate 72 /min BP Systolic Sitting 142 mmHg L BP Diastolic Sitting 92 mmHg L BMI (Body Mass Index) 39.3 kg/m2 04/06/2011 Height 65.25 inches 5'5.25" Weight 230.00 lb Heart Rate 72 /min BP Systolic Sitting 132 mmHg L BP Diastolic Sitting 78 mmHg L BMI (Body Mass Index) 38.0 kg/m2 04/01/2011 Height 65.25 inches 5'5.25" Weight 230.00 lb Heart Rate 72 /min BP Systolic Sitting 120 mmHg L BP Diastolic Sitting 80 mmHg L BMI (Body Mass Index) 38.0 kg/m2 03/25/2011 Height 65.25 inches 5'5.25" Weight 230.00 lb Heart Rate 100 /min BP Systolic Sitting 140 mmHg BP Diastolic Sitting 90 mmHg BMI (Body Mass Index) 38.0 kg/m2 01/01/2011 Height 65.25 inches 5'5.25" Weight 229.50 lb Heart Rate 88 /min BP Systolic Sitting 130 mmHg BP Diastolic Sitting 88 mmHg BMI (Body Mass Index) 37.9 kg/m2 12/09/2010 Height 66 inches 5'6" Weight 227.00 lb Heart Rate 72 /min BP Systolic Sitting 128 mmHg BP Diastolic Sitting 78 mmHg BMI (Body Mass Index) 36.6 kg/m2 10/28/2010 Weight 231.00 lb Heart Rate 80 /min BP Systolic Sitting 146 mmHg BP Diastolic Sitting 88 mmHg 07/29/2010 Height 65.5 inches 5'5.50" Weight 233.00 lb Heart Rate 86 /min BP Systolic Sitting 124 mmHg BP Diastolic Sitting 80 mmHg BMI (Body Mass Index) 38.2 kg/m2 06/16/2010 Height 65.5 inches 5'5.50" Weight 239.00 lb Heart Rate 72 /min BP Systolic Sitting 120 mmHg BP Diastolic Sitting 86 mmHg BMI (Body Mass Index) 39.2 kg/m2 05/14/2010 Height 65.5 inches 5'5.50" Weight 237.00 lb Heart Rate 78 /min BP Systolic Sitting 136 mmHg BP Diastolic Sitting 90 mmHg BMI (Body Mass Index) 38.8 kg/m2 05/01/2010 Height 65.5 inches 5'5.50" Weight 234.00 lb Heart Rate 70 /min BP Systolic 140 mmHg BP Diastolic 90 mmHg Body Temperature 97.9 F BMI (Body Mass Index) 38.3 kg/m2 Results Test Date Test Result H/L Range Note CBC Auto Diff 10/29/2016 White Blood Count 13.0 10^3/uL High 3.5-10.8 Red Blood Count 5.03 10^6/uL 4.0-5.4 Hemoglobin 14.4 g/dL 12.0-16.0 Hematocrit 44 % 35-47 Mean Corpuscular Volume 87 fL 80-97 Mean Corpuscular Hemoglobin 29 pg 27-31 Mean Corpuscular HGB Conc 33 g/dL 31-36 Red Cell Distribution Width 13 % 10.5-15 Platelet Count 244 10^3/uL 150-450 Mean Platelet Volume 9 um3 7.4-10.4 Abs Neutrophils 10.7 10^3/uL High 1.5-7.7 Abs Lymphocytes 1.3 10^3/uL 1.0-4.8 Abs Monocytes 0.8 10^3/uL 0-0.8 Abs Eosinophils 0.1 10^3/uL 0-0.6 Abs Basophils 0.1 10^3/uL 0-0.2 Abs Nucleated RBC 0.02 10^3/uL Granulocyte % 82.5 % 38-83 Lymphocyte % 9.9 % Low 25-47 Monocyte % 6.1 % 1-9 Eosinophil % 0.6 % 0-6 Basophil % 0.9 % 0-2 Nucleated Red Blood Cells % 0.1 Laboratory test finding 10/29/2016 Lactic Acid 1.4 mmol/L 0.5-2.0 1 Urinalysis Profile 10/29/2016 Urine Color Yellow Urine Appearance Cloudy Urine Specific [place] 1.025 1.010-1.030 Urine pH 5.0 5-9 Urine Urobilinogen Negative Negative Urine Ketones Trace Negative Urine Protein 3+(>=500 mg/dL) Negative Urine Leukocytes Negative Negative Urine Blood 1+ Negative Urine Nitrite Negative Negative Urine Bilirubin Negative Negative Urine Glucose 3+(>=500 mg/dL) Negative Urine White Blood Cell Trace(0-5/hpf) Absent Urine Red Blood Cell 1+(3-5/hpf) Absent Urine Bacteria Absent Absent Urine Squamous Epithelial Cell Present Absent Comp Metabolic Panel 10/29/2016 Sodium 126 mmol/L Low 133-145 Potassium 3.8 mmol/L 3.5-5.0 Chloride 93 mmol/L Low 101-111 Co2 Carbon Dioxide 26 mmol/L 22-32 Anion Gap 7 mmol/L 2-11 Glucose 380 mg/dL High 70-100 Blood Urea Nitrogen 18 mg/dL 6-24 Creatinine 1.16 mg/dL High 0.51-0.95 BUN/Creatinine Ratio 15.5 8-20 Calcium 8.9 mg/dL 8.6-10.3 Total Protein 7.6 g/dL 6.4-8.9 Albumin 3.5 g/dL 3.2-5.2 Globulin 4.1 g/dL High 2-4 Albumin/Globulin Ratio 0.9 Low 1-3 Total Bilirubin 0.60 mg/dL 0.2-1.0 Alkaline Phosphatase 69 U/L 34-104 Alt 8 U/L 7-52 Ast 10 U/L Low 13-39 Egfr Non- 48.9 >60 Egfr 62.8 >60 2 Laboratory test finding 10/29/2016 Troponin-I (TnI) 0.01 ng/mL <0.04 Inr/Protime 10/29/2016 Inr 0.93 0.89-1.11 Laboratory test finding 10/29/2016 Partial Thrombo Time 28.7 seconds 26.0 -36.3 PTT Blood Culture SEE RESULT BELOW 3 Laboratory test 04/07/2016 Hemoglobin A1c >14.0 High 5-7 finding Laboratory test 06/26/2015 Hemoglobin A1c (Glyco 9.5 % High Less than 6.0 4 finding HGB) Urine Microalbumin 06/26/2015 Ur Microalbumin 1512.5 mg/L Random (mg/L) Urine Creatinine 74.15 mg/dL Urine Microalbumin/Creatinine 2039.7 ug/mg High <31 Lipid Profile (Trig/Chol/HDL) 06/26/2015 Triglycerides 166 mg/dL 5 Cholesterol 256 mg/dL 6 HDL Cholesterol 48.3 mg/dL 7 LDL Cholesterol 175 mg/dL 8 Comp Metabolic Panel 06/26/2015 Sodium 136 mmol/L 133-145 Potassium 4.2 mmol/L 3.5-5.0 Chloride 101 mmol/L 101-111 Co2 Carbon Dioxide 28 mmol/L 22-32 Anion Gap 7 mmol/L 2-11 Glucose 130 mg/dL High 70-100 Blood Urea Nitrogen 17 mg/dL 6-24 Creatinine 0.93 mg/dL 0.51-0.95 BUN/Creatinine Ratio 18.3 8-20 Calcium 8.8 mg/dL 8.6-10.3 Total Protein 6.2 g/dL Low 6.4-8.9 Albumin 3.6 g/dL 3.2-5.2 Globulin 2.6 g/dL 2-4 Albumin/Globulin Ratio 1.4 1-3 Total Bilirubin 0.40 mg/dL 0.2-1.0 Alkaline Phosphatase 42 U/L 34-104 Alt 11 U/L 7-52 Ast 12 U/L Low 13-39 Egfr Non- 63.3 >60 Egfr 81.4 >60 9 Urine Microalbumin Random 03/17/2015 Urine Creatinine 67.38 mg/dL Ur Microalbumin (mg/L) 1067.0 mg/L Urine Microalbumin/Creatinine 1583.5 ug/mg High <31 Laboratory test finding 03/17/2015 Hemoglobin A1c 14.0 High 5-7 Laboratory test finding 03/07/2014 Hemoglobin A1c 7.8 High 5-7 Laboratory test finding 12/06/2013 Hemoglobin A1c 8.9 High 5-7 Basic Metabolic Panel 10/22/2013 Sodium 137 mmol/L 133-145 Potassium 4.7 mmol/L 3.7-5.6 Chloride 101 mmol/L 101-111 Co2 Carbon Dioxide 30 mmol/L 22-32 Anion Gap 6 mmol/L 2-11 Glucose 182 mg/dL High 70-100 Blood Urea Nitrogen 15 mg/dL 6-24 Creatinine 1.12 mg/dL High 0.51-0.95 BUN/Creatinine Ratio 13.4 8-20 Calcium 9.3 mg/dL 8.6-10.3 Egfr Non- 51.5 >60 Egfr 66.2 >60 10 Creatinine Clearance 10/22/2013 Urine Random Creatinine 48.89 mg/dL Creatinine 1.12 mg/dL High 0.51-0.95 Creatinine Clearance 68 mL/min Low 88-128 Urine Collection Time 24 Urine Total Volume 2250 mL Total Protein 24HR Urine 10/22/2013 Urine Random Total Protein 103 mg/dL Urine Total Protein/24HR 2317 mg/24Hr High 0-165 Urine Collection Time 24 Urine Total Volume 2250 mL Laboratory test 09/11/2013 Hemoglobin A1c 13.4 % High Less than 11, 12 finding 6.0 Urine Microalbumin 09/11/2013 Ur Microalbumin 1500.0 <30 11, 13 Random (mg/L) mg/dL Urine Creatinine 152.94 mg/dL 11 Urine Microalbumin/Creatinine 980.7 High Less Than 31 11 Lipid Profile (Trig/Chol/HDL) 09/11/2013 Triglycerides 256 mg/dL 11, 14 Cholesterol 294 mg/dL 11, 15 HDL Cholesterol 42.1 mg/dL 11, 16 LDL Cholesterol 201 mg/dL 11, 17 Laboratory test finding 02/02/2012 Hemoglobin A1c 7.0 5-7 Lipid Profile (Trig/Chol/HDL) 10/26/2011 Triglyceride 130 mg/dL 40-200 Cholesterol 238 mg/dL High Less Than 200 18 High Density Lipoprotein 47 mg/dL 40-60 19 Cholesterol/HDL Ratio 5.06 AVERAGE High 1-4.44 Low Density Lipoprotein 165 mg/dL High Less Than 100 20 Basic Metabolic Panel 10/26/2011 Sodium 135 mmol/L 135-145 Potassium 4.3 mmol/L 3.5-5.0 Chloride 98 mmol/L Low 101-111 Co2 (Carbon Dioxide) 30.0 mmol/L 22-32 Anion Gap 7.0 mmol/L 2-11 21 Glucose 147 mg/dL High 70-100 BUN 9 mg/dL 6-24 Creatinine 0.7 mg/dL 0.50-1.40 One Over Creatinine 1.42 BUN/Creatinine Ratio 12.9 8-20 Calcium 8.9 mg/dL 8.1-9.9 eGFR Non- 89.3 > 60 eGFR 114.9 > 60 22 CBC With Manual Diff 10/26/2011 White Blood Count 8.0 CUMM 4.8-10.8 Red Cell Count 4.02 CUMM Low 4.2-5.4 Hemoglobin 12.2 g/dL 12.0-16.0 Hematocrit 35 % 35-47 Mean Corpuscular Volume 88 um3 79-97 Mean Corpuscular Hemoglob 30 pg 27-31 Mean Corpuscular HGB Cone 35 g/dL 32-36 Redcell Distribution WDTH 14 % 10.5-15 Platelet Count 306 CUMM 150-450 Mean Platelet Volume 8.8 um3 7.4-10.4 Absolute Neutrophil Count 5.8 1.5-7.7 Polysegmented Neutrophil 63 % 38-83 Lymphocyte 30 % 25-47 Monocyte 2 % 0-13 Eosinophil 4 % 0-6 Basophil 1 % 0-2 RBC Morphology NORMAL Laboratory test finding 10/26/2011 Hemoglobin A1c 7.4 High 5-7 (HCG) Urine 06/25/2011 Specific [place] 1.023 1.010-1.030 Urine NEGATIVE Negative 23 Laboratory test finding 06/24/2011 Hemoglobin A1c 6.9 5-7 Lipid Profile (Trig/Chol/HDL) 05/07/2011 Triglyceride 153 mg/dL 40-200 Cholesterol 271 mg/dL High Less Than 200 24 High Density Lipoprotein 48 mg/dL 40-60 25 Cholesterol/HDL Ratio 5.65 AVERAGE High 1-4.44 Low Density Lipoprotein 192 mg/dL High Less Than 100 26 Comp Metabolic Panel 05/07/2011 Sodium 138 mmol/L 135-145 Potassium 4.0 mmol/L 3.5-5.0 Chloride 101 mmol/L 101-111 Co2 (Carbon Dioxide) 29.0 mmol/L 22-32 Anion Gap 8.0 mmol/L 2-11 27 Glucose 138 mg/dL High 70-100 BUN 8 mg/dL 6-24 Creatinine 0.6 mg/dL 0.50-1.40 One Over Creatinine 1.66 BUN/Creatinine Ratio 13.3 8-20 Calcium 8.8 mg/dL 8.1-9.9 Total Protein 6.6 GM/DL 6.2-8.1 Albumin 3.6 GM/DL 3.6-5.4 Globulin 3.0 GM/DL 2-4 Albumin/Globulin Ratio 1.2 1-3 Bilirubin Total 0.8 mg/dL 0.4-1.5 28 Alkaline Phosphatase 46 U/L 30-110 Alt (SGPT) 19 U/L 14-54 Ast (Sgot) 17 U/L 12-42 eGFR Non- 106.7 > 60 eGFR 137.2 > 60 29 Urine Microalbumin Random 05/07/2011 Microalbumin (MG/L) 1661.0 mg/L Urine Creatinine 110.3 mg/dL Cornel Alb/Creatinine Ratio 1505.9 UG/MG High Less Than 30 30 Laboratory test finding 05/07/2011 C Reactive Protein 1.4 mg/dL High Less Than 0.5 Erythrocyte Sed Rate 49 MM/HR High 0-15 Laboratory test finding 04/26/2011 BUN 17 mg/dL 6-24 Creatinine 04/26/2011 Creatinine 1.0 mg/dL 0.50-1.40 One Over Creatinine 1.00 eGFR Non- 59.2 > 60 eGFR 76.1 > 60 31 Culture And 03/27/2011 M <SEE 32 Sensitivity NOTE> Laboratory test 03/25/2011 Hemoglobin A1c 6.9 5-7 finding Laboratory test 12/09/2010 Hemoglobin A1c 7.7 High 5-7 finding Laboratory test 10/28/2010 Hemoglobin A1c 9.2 High 5-7 finding Urine Microalbumin 05/04/2010 Microalbumin (MG/L) 841.0 mg/L Random Urine Creatinine 206.77 mg/dL Cornel Alb/Creatinine Ratio 406.7 UG/MG High Less Than 30 33 Lipid Profile (Trig/Chol/HDL) 05/04/2010 Triglyceride 187 mg/dL 40-200 Cholesterol 266 mg/dL High Less Than 200 34 High Density Lipoprotein 47 mg/dL 40-60 35 Cholesterol/HDL Ratio 5.66 AVERAGE High 1-4.44 Low Density Lipoprotein 182 mg/dL High Less Than 100 36 Comp Metabolic Panel 05/04/2010 Sodium 135 mmol/L 135-145 Potassium 5.0 mmol/L 3.5-5.0 Chloride 99 mmol/L Low 101-111 Co2 (Carbon Dioxide) 29.0 mmol/L 22-32 Anion Gap 7.0 mmol/L 2-11 37 Glucose 276 mg/dL High 70-100 BUN 9 mg/dL 6-24 Creatinine 0.60 mg/dL 0.50-1.40 One Over Creatinine 1.60 BUN/Creatinine Ratio 15.0 8-20 Calcium 8.8 mg/dL 8.1-9.9 Total Protein 6.2 GM/DL 6.2-8.1 Albumin 3.3 GM/DL Low 3.6-5.4 Globulin 2.9 GM/DL 2-4 Albumin/Globulin Ratio 1.1 1-3 Bilirubin Total 0.7 mg/dL 0.4-1.5 38 Alkaline Phosphatase 54 U/L 30-110 Alt (SGPT) 17 U/L 14-54 Ast (Sgot) 17 U/L 12-42 eGFR Non- 107.2 > 60 eGFR 137.8 > 60 39 Laboratory test finding 05/01/2010 Hemoglobin A1c 11.4 High 5-7 1 WAS Severe Sepsis and Septic Shock Management Bundle Measure requires all lactic acids initially measuring >2.0 mmol/L be repeated. 2 Because ethnic data is not always readily available, this report includes an eGFR for both -Americans and non- Americans. The National Kidney Disease Education Program (NKDEP) does not endorse the use of the MDRD equation for patients that are not between the ages of 18 and 70, are , have extremes of body size, muscle mass, or nutritional status, or are non- or non-. According to the National Kidney Foundation, irrespective of diagnosis, the stage of the disease is based on the level of kidney function: Stage Description GFR(mL/min/1.73 m(2)) 1 Kidney damage with normal or decreased GFR 90 2 Kidney damage with mild decrease in GFR 60-89 3 Moderate decrease in GFR 30-59 4 Severe decrease in GFR 15-29 5 Kidney failure <15 (or dialysis) 3 SEE RESULT BELOW Name: MICHELLE EAGLE : [address]: Eleni Salcedo MD Acct: [id number] Unit: [id number] AGE: 51 Location: ED Re10/29/16 SEX: F Status: DEP ER SPEC: [id number] JAUN: 10/29/16-1453 [facility] DR: Jim Collins MD REQ: [id number] RECD: 10/29/16042 STATUS: CINDY ALICIA DR: [facility] Prakash Barclay MD _ SOURCE: BLOOD,VENO SPDESC: ORDERED: Blood Cult COMMENTS: ONLY AEROBIC BOTTLE COLLECTED Procedure Result Reported Site Aerobic Culture Bottle Final 11/03/16- 1504 ML No Growth Day 5 * ML - MAIN LAB ([facility]1) . END OF REPORT * ML=Testing performed at Main Lab DEPARTMENT OF PATHOLOGY, [address] [place] [address] Angus Rubi M.D. Director [facility] # [id number] 4 Therapeutic target for the treatment of diabetes Mellitus patients is <7% HBA1C, and in selective patients <6.0%.Please refer to [place] [employer] Diabetic care guidelines for further information. 5 Desirable <150 Borderline high 150-199 High 200-499 Very High >500 6 Desirable <200 Borderline high 200-239 High >239 7 Low <40 Desirable: 40-60 High: >60 8 Desirable: <100 mg/dL Near Optimal: 100-129 mg/dL Borderline High: 130-159 mg/dL High: 160-189 mg/dL Very High: >189 mg/dL 9 Because ethnic data is not always readily available, this report includes an eGFR for both -Americans and non- Americans. The National Kidney Disease Education Program (NKDEP) does not endorse the use of the MDRD equation for patients that are not between the ages of 18 and 70, are , have extremes of body size, muscle mass, or nutritional status, or are non- or non-. According to the National Kidney Foundation, irrespective of diagnosis, the stage of the disease is based on the level of kidney function: Stage Description GFR(mL/min/1.73 m(2)) 1 Kidney damage with normal or decreased GFR 90 2 Kidney damage with mild decrease in GFR 60-89 3 Moderate decrease in GFR 30-59 4 Severe decrease in GFR 15-29 5 Kidney failure <15 (or dialysis) 10 Because ethnic data is not always readily available, this report includes an eGFR for both -Americans and non- Americans. The National Kidney Disease Education Program (NKDEP) does not endorse the use of the MDRD equation for patients that are not between the ages of 18 and 70, are , have extremes of body size, muscle mass, or nutritional status, or are non- or non-. According to the National Kidney Foundation, irrespective of diagnosis, the stage of the disease is based on the level of kidney function: Stage Description GFR(mL/min/1.73 m(2)) 1 Kidney damage with normal or decreased GFR 90 2 Kidney damage with mild decrease in GFR 60-89 3 Moderate decrease in GFR 30-59 4 Severe decrease in GFR 15-29 5 Kidney failure <15 (or dialysis) 11 FASTING 12 Therapeutic target for the treatment of diabetes Mellitus patients is <7% HBA1C, and in selective patients <6.0%.Please refer to [place] [employer] Diabetic care guidelines for further information. 13 --- 09/11/13 1233 --- UR Microalbumin previously reported as: 1500.0 mg/dL Microalbuminuria in a random sample is defined as: Microalbumin/Creatinine ratio of 30-299 ug/mg. 14 Desirable <150 Borderline high 150-199 High 200-499 Very High >500 15 Desirable <200 Borderline high 200-239 High >239 16 Low <40 Desirable: 40-60 High: >60 17 Desirable <100 Near Optimal 100-129 Borderline high 130-159 High 160-189 Very High >189 18 CHOLESTEROL INTERPRETATION: Desirable: Less than 200 MG/DL Borderline-High Risk: 200-239 MG/DL High-Risk: 240 MG/DL and over 19 HDL INTERPRETATION: Undesirable: High Risk: Less than 40 MG/DL Desirable: Low Risk: Greater than 60 MG/DL 20 LDL INTERPRETATION: Low Risk Optimal Level: LDL Less than 100 MG/DL Near or Above Optimal: LDL 100-129 MG/DL Borderline High Risk: LDL 130-159 MG/DL High Risk: LDL 160-189 MG/DL Very High Risk: LDL Greater than 189 MG/DL 21 Anion gap measurement may be of limited value in the presence of any alkalosis, especially in a combined acid base disorder. . 22 Because ethnic data is not always readily available, this report includes an eGFR for both -Americans and non- Americans. The National Kidney Disease Education Program (NKDEP) does not endorse the use of the MDRD equation for patients that are not between the ages of 18 and 70, are , have extremes of body size, muscle mass, or nutritional status, or are non- or non-. According to the National Kidney Foundation, irrespective of diagnosis, the stage of the disease is based on the level of kidney function: Stage Description GFR(mL/min/1.73 m(2)) 1 Kidney damage with normal or decreased GFR 90 2 Kidney damage with mild decrease in GFR 60-89 3 Moderate decrease in GFR 30-59 4 Severe decrease in GFR 15-29 5 Kidney failure <15 (or dialysis) 23 If is still suspected, please repeat test after 48 to 72 hours. . This test detects intact HCG only and is indicated for the early detection of . 24 CHOLESTEROL INTERPRETATION: Desirable: Less than 200 MG/DL Borderline-High Risk: 200-239 MG/DL High-Risk: 240 MG/DL and over 25 HDL INTERPRETATION: Undesirable: High Risk: Less than 40 MG/DL Desirable: Low Risk: Greater than 60 MG/DL 26 LDL INTERPRETATION: Low Risk Optimal Level: LDL Less than 100 MG/DL Near or Above Optimal: LDL 100-129 MG/DL Borderline High Risk: LDL 130-159 MG/DL High Risk: LDL 160-189 MG/DL Very High Risk: LDL Greater than 189 MG/DL 27 Anion gap measurement may be of limited value in the presence of any alkalosis, especially in a combined acid base disorder. . 28 A metabolite of Naproxen, O-desmethylnaproxen, has been shown to interfere with the Jendrassik-Krystal method for measuring total bilirubin. Samples from patients who have taken Naproxen have shown spurious elevation in total bilirubin levels. 29 Because ethnic data is not always readily available, this report includes an eGFR for both -Americans and non- Americans. The National Kidney Disease Education Program (NKDEP) does not endorse the use of the MDRD equation for patients that are not between the ages of 18 and 70, are , have extremes of body size, muscle mass, or nutritional status, or are non- or non-. According to the National Kidney Foundation, irrespective of diagnosis, the stage of the disease is based on the level of kidney function: Stage Description GFR(mL/min/1.73 m(2)) 1 Kidney damage with normal or decreased GFR 90 2 Kidney damage with mild decrease in GFR 60-89 3 Moderate decrease in GFR 30-59 4 Severe decrease in GFR 15-29 5 Kidney failure <15 (or dialysis) 30 MICROALBUMINURIA IN A RANDOM SAMPLE IS DEFINED : MICROALBUMIN/CREATININE RATIO OF 30-299 ug/mg. . 31 Because ethnic data is not always readily available, this report includes an eGFR for both -Americans and non- Americans. The National Kidney Disease Education Program (NKDEP) does not endorse the use of the MDRD equation for patients that are not between the ages of 18 and 70, are , have extremes of body size, muscle mass, or nutritional status, or are non- or non-. According to the National Kidney Foundation, irrespective of diagnosis, the stage of the disease is based on the level of kidney function: Stage Description GFR(mL/min/1.73 m(2)) 1 Kidney damage with normal or decreased GFR 90 2 Kidney damage with mild decrease in GFR 60-89 3 Moderate decrease in GFR 30-59 4 Severe decrease in GFR 15-29 5 Kidney failure <15 (or dialysis) 32 RUN DATE: 04/01/11 [facility] NMI LIVE PAGE 1 RUN TIME: 821 Specimen Inquiry RUN USER: INTERFACE Name: EAGLEMICHELLE D Status: REG REF Re03/27/11 Age/Sex: 46/F Unit#: [id number] Location: [facility]. : 61 SPEC #: [id number] JAUN: 03/27/11 STATUS: COMP REQ #: [id number] RECD: 03/27/[address]: Jadyn LITTLE,Rose Isidro SOURCE: MISC ENTR: 03/27/[address]: Deny AL,Izaiah Noble SPDESC: TOE,LEFT ORDERED: CULT SENS/GS COMMENTS: SPECIMEN SOURCE: ULCER LEFT HALLUX ACT WKST: B 04/01/11 #2 Procedure Result Verified Site > CULTURE SENSITIVITY Final 04/01/11- 821 ML Organism 1 STREPTOCOCCUS AGALACTIAE-GR B QUANTITY MANY Organism 2 PREVOTELLA BIVIA QUANTITY MODERATE BETA-LACTAMASE DISC POSITIVE Organism 3 PEPTOSTREPTOCOCCUS SP. QUANTITY MODERATE Organism 4 BACTEROIDES THETAIOTAOMICRON Anaerobic sensitivities are not routinely performed. Positive isolates will be saved for one week. Please call the Microbiology Laboratory if susceptibility testing is needed. QUANTITY MODERATE BETA-LACTAMASE DISC POSITIVE PREVOTELLA BIVIA AND BACTEROIDES THETAIOTAOMICRON : - BETA LACTAMASE POSITIVE 1. STREPTOCOCCUS AGALACTIAE-GR B RX M.I.C. ------ --------- PENICILLIN S <=0.12 LEVOFLOXACIN S 1 TETRACYCLINE S <=1 AMPICILLIN S <=0.25 CLINDAMYCIN R >=8 TIGECYCLINE S <=0.12 LINEZOLID S 1 VANCOMYCIN S <=0.5 +AMPICILLIN/SUBLACTAM S +IMIPENEM S DEPARTMENT OF PATHOLOGY, [address] [place] [address] [place] State Permit #[id number] Angus Rubi M.D. Director Noy Cordero M.D. Vegetable Loader RUN DATE: 04/01/11 [facility] NMI LIVE PAGE 2 RUN TIME: 821 Specimen Inquiry RUN USER: INTERFACE Name: MICHELLE EAGLE Status: REG REF Re03/27/11 Age/Sex: 46/F Unit#: [id number] Location: [facility]. : 61 -- -- CONTINU ED Procedure Result Verified Site CULTURE SENSITIVITY Final (continued) 04/01/11- 821 1. STREPTOCOCCUS AGALACTIAE-GR B (continued) RX M.I.C. ------ --------- +CEFAZOLIN S +These results are deduced according to CLSI guidelines as they are related to tested antimicrobials with almost identical spectrum of activity. *These antibiotics are not available in the [facility] Formulary. Contact the Microbiology Department for any additional antibiotic reporting. > GRAM STAIN SMEAR Final 03/28/11- 729 ML POLYS NONE SMEAR: MANY EPITHELIAL CELLS MANY GRAM POSITIVE COCCI MANY GRAM NEGATIVE BACILLI MOD GRAM POSITIVE BACILLI INTERPRET CULTURE RESULTS WITH CAUTION. NUMEROUS EPITHELIAL CELLS OBSERVED ON GRAM STAIN, WHICH MAY INDICATE SURFACE CONTAMINATION. [facility] State Permit #[id number] [address] [place] [address] DEPARTMENT OF PATHOLOGY, [address] [place] [address] [place] [employer] Permit #[id number] Angus Rubi M.D. Director Noy Cordero M.D. Vegetable Loader 33 MICROALBUMINURIA IN A RANDOM SAMPLE IS DEFINED : MICROALBUMIN/CREATININE RATIO OF 30-299 ug/mg. . 34 CHOLESTEROL INTERPRETATION: Desirable: Less than 200 MG/DL Borderline-High Risk: 200-239 MG/DL High-Risk: 240 MG/DL and over 35 HDL INTERPRETATION: Undesirable: High Risk: Less than 40 MG/DL Desirable: Low Risk: Greater than 60 MG/DL 36 LDL INTERPRETATION: Low Risk Optimal Level: LDL Less than 100 MG/DL Near or Above Optimal: LDL 100-129 MG/DL Borderline High Risk: LDL 130-159 MG/DL High Risk: LDL 160-189 MG/DL Very High Risk: LDL Greater than 189 MG/DL 37 Anion gap measurement may be of limited value in the presence of any alkalosis, especially in a combined acid base disorder. . 38 A metabolite of Naproxen, O-desmethylnaproxen, has been shown to interfere with the Jendrassik-Angier method for measuring total bilirubin. Samples from patients who have taken Naproxen have shown spurious elevation in total bilirubin levels. 39 Because ethnic data is not always readily available, this report includes an eGFR for both -Americans and non- Americans. The National Kidney Disease Education Program (NKDEP) does not endorse the use of the MDRD equation for patients that are not between the ages of 18 and 70, are , have extremes of body size, muscle mass, or nutritional status, or are non- or non-. According to the National Kidney Foundation, irrespective of diagnosis, the stage of the disease is based on the level of kidney function: Stage Description GFR(mL/min/1.73 m(2)) 1 Kidney damage with normal or decreased GFR 90 2 Kidney damage with mild decrease in GFR 60-89 3 Moderate decrease in GFR 30-59 4 Severe decrease in GFR 15-29 5 Kidney failure <15 (or dialysis) Procedures Date CPT Code Description Status 09/01/2017 Diabetic Retinal Eye Exam Completed 11/29/2016 Diabetic Retinal Eye Exam Completed 06/11/2015 Diabetic Retinal Eye Exam Completed 06/15/2011 Diabetic Foot Exam Completed 04/01/2011 Diabetic Foot Exam Completed Encounters Type Date Location Provider CPT E/M Dx Office Visit 04/07/2016 [facility] Prakash Barclay, [address]48 S82.002D 2:40p Medicine - [place] E[place] M.DJorge,FACP E11.40 Office Visit 03/17/2015 2:30p [facility] [place] [address] I15.2 E11.331 E11.22 E78.2 Office Visit 03/07/2014 8:50a [facility] Medicine Prakash Barclay, 71468 250.02 - Marie Helms,FACP 362.02 Office Visit 12/06/2013 9:30a [facility] Medicine Prakash Barclay, 45415 250.62 - Marie Helms,FACP 250.42 Office Visit 10/26/2013 9:40a [facility] Medicine Prakash Barclay, 15780 250.42 - Marie Helms,FACP Office Visit 09/14/2013 2:40p [facility] Medicine Prakash Barclay, 30522 250.62 - Marie Helms,FACP 362.02 Office Visit 02/02/2012 2:40p [facility] Medicine Prakash Barclay, 16886 250.02 - Marie Helms,FACP 686.1 Office Visit 10/26/2011 9:00a [facility] Medicine Richelle Casanova, N.P. 37016 782.3 - Marie 250.02 V76.10 Office Visit 06/24/2011 10:30a [facility] Medicine Prakash Barclay, 97190 V72.81 - Marie Helms,FACP 727.1 250.02 272.2 Office Visit 05/06/2011 3:40p [facility] Internal Medicine [facility] [place], [address] 730.17 - Marie Helms,FACP 250.02 Office Visit 04/06/2011 1:45p [facility] Internal Medicine Michelle Justin M.D. 78096 681.9 - [place] 707.15 Office Visit 04/01/2011 2:00p [facility] Medicine Michelle Justin, 12350 681.9 - Marie Helms Office Visit 03/25/2011 9:10a [facility] 11496 250.02 - Marie Helms,FACP 707.15 Office Visit 01/01/2011 12:00p DO Not Use [facility], 78903 723.1 Lori Helms,FACP Office Visit 12/09/2010 11:10a DO Not Use Production Rep[facility], 91585 250.02 Lori Helms,FACP 272.2 Office Visit 10/28/2010 1:45p DO Not Use Production Repairer [facility], 78871 368.9 Lori Helms,FACP 250.62 Office Visit 07/29/2010 4:00p DO Not Use Production Rep[facility], 17226 250.62 Lori Helms,FACP 357.2 Office Visit 06/16/2010 9:40a DO Not Use Production Repairer [facility], 00317 250.62 Lori Helms,FACP 362.02 272.0 Office Visit 05/14/2010 10:40a DO Not Use Production Repairer [facility], 69822 250.62 Lori Helms,FACP Office Visit 05/01/2010 3:20p DO Not Use Production Repairer [facility], 10374 250.02 Lori Helms,FACP V77.1 707.15 Plan of Care Future Appointment(s):10/21/2017 11:00 am - Zack Parks NP at [facility]09/26/2017 - Zack Parks, NPZ01.818 Encounter for other preprocedural examinationComments:As long as your labs are normal I do not see any contraindications to your surgery.You should avoid aspirin, NSAIDs ( ibuprofen, Motrin, aleve) and supplements 7 days prior to the procedure.H26.9 Unspecified idskwwdoD05.40 Type 2 diabetes mellitus with diabetic neuropathy, unspComments:We will notify you of the results of your lab work and if changes to your diabetes medications are recommended.Follow up:Goals:Goal Hemoglobin A1c is less than 7.0%. Goal Blood pressure is less than 130/85.I10 Essential ( primary) hypertensionNew Medication:Losartan Potassium 50 mgComments:Your blood pressure is elevated today. As has been recommended in the past, you should consider strting medication to lower this. Try to check your blood pressure at least once weekly and record thosereadings. If consistently running greater than 140/90 (either number) please call.Follow up:Sharon HERRERA 10/21 N/V 10/06 or 10/07 for BP check
--- OUTSIDE RECORDS SUMMARY | 2017-10-19 12:19 | XMS REPORT ---
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 Deny AL, Prakash Primary Care Physician Unavailable Payers Type Date Identification Numbers Payment Provider Subscriber Health Maintenance Policy Number: BC/BS [place] Ppo [facility] ([facility]) [id number] PayID: [id number] [address] [place] [address] Problems Date Description Provider Status Onset: 11/29/2016 Type 2 diabetes mellitus Chevy Neumann, OD Active Family History Date Family Member(s) Problem(s) Comments General Diabetes Father Arthritis Father H/O: Hypertension Father Heart Disease Father Diabetes Social History Type Date Description Comments ETOH Use Denies alcohol use Smoking Patient is a former smoker Allergies, Adverse Reactions, Alerts Date Description Reaction Status Severity Comments 11/29/2016 Penicillins active Medications Medication Date Status Form Strength Qnty SIG Indications Ordering Provider Tobramycin-Dex 10/10/ Active Suspension 0.3-0.1% 5ml 1 drop Chevy amethasone 2018 tid OS x Neumann, OD 1 week Vigamox 09/13/ Active Solution 0.5% 9ml 1 drop Danny 2018 drops Madison, left eye M.D. four times a day Ketorolac 09/13/ Active Solution 0.5% 10ml 1 drops Danny Tromethamine 2018 left eye Madison, twice a M.D. day Pred Forte 09/13/ Active Suspension 1% 10ml 1 drops Danny 2018 left eye Wallace, four M.D. times a day No Active 08/01/ Hx Unknown Medications 2017 - 2017 No Active 07/25/ Hx Unknown Medications 2017 - 2017 Tobramycin-Dex 07/25/ Hx Suspension 0.3-0.1% 1bottl 1gtt H10.011 Danny amethasone 2018 - e right Madison, 08/01/ eye Scooter 2018 three times a day Isabela Breeze 2 / Hx Disk 2Test Use Two Unknown Test 0000 - Times A 07/25/ Day as 2018 Needed Levemir / Hx Solution 100Unit/ML Inject Unknown Flextouch 0000 - Pen-Inject 20 Units 07/25/ Under 2018 The Skin Once Daily Vital Signs Date Vital Result Comment 10/19/2017 Intraocular Pressure Right Eye 18 mmHg 09/08/2017 Intraocular Pressure Right Eye 17 mmHg Intraocular Pressure Left Eye 17 mmHg 08/01/2017 Intraocular Pressure Right Eye 17 mmHg 11/29/2016 Intraocular Pressure Right Eye 16 mmHg Intraocular Pressure Left Eye 16 mmHg Results Test Date Test Result H/L Range Note Laboratory test finding 10/18/2017 Point of Care Glucose 292 mg/dL High 70 -100 1 Laboratory test finding 10/18/2017 Point of Care Glucose 319 mg/dL High 70 -100 2 Laboratory test finding 10/18/2017 Point of Care Glucose 327 mg/dL High 70 -100 3 1 Ancillary Services Manager Therapy: [id number] 2 Ancillary Services Manager Therapy: [id number] 3 Ancillary Services Manager Therapy: [id number] Procedures Date CPT Code Description Status 09/08/2017 39292 Ophthalmic Biometry By Partial Coherence Interferometry Completed W/Intra 09/08/2017 57665 Eye Exam Est Intermediate Completed 08/01/2017 85172 Oct Retina Completed 08/01/2017 05397 Eye Exam Est Intermediate Completed 07/25/2017 38798 Eye Exam Est Intermediate Completed 11/29/2016 25884 Refraction Completed 11/29/2016 78968 Eye Exam New Intermediate Completed 07/01/2010 80976 Refraction Completed 07/01/2010 30616 Eye Exam Est Intermediate Completed 06/03/2010 53422 Ophthalmoscopy Initial Completed 06/03/2010 77696 Eye Exam New Comprehensive Completed Encounters Type Date Location Provider CPT E/M Dx Office Visit 10/17/2017 3:30p Main Office Danny Wallace M.D. 30400 H10.012 H25.813 Office Visit 10/12/2017 9:30a Main Office Danny Wallace M.D. 40225 H10.012 H25.813 Office Visit 10/10/2017 12:45p [place] [address] B30.8 H25.813 Plan of Care Future Appointment(s):11/29/2017 10:30 am - Chevy Neumann, OD at Main Xsepwr73 11:15 am - Chevy Neumann, OD at Main Tswpeb7510/26/2017 8:45 am - Danny Wallace M.D. at Main Lfkiop9510/25/2017 11:05 am - Danny Wallace M.D. at Main Lcshuf9910/19/2017 - Danny Wallace M.D.Z48.89 Encounter for other specified surgical aftercareComments:The patient was seen post-operatively one day following surgery. The patient was advised that the eye tolerated the surgery well without complications. Patient was given eye drop schedule and implant card.The patient was told to wear an eye shield QHS for one week and sunglasses daily. The patient was also advised to contact us immediately if new symptoms or visual changes are noted such as pain, worsening redness, flashes, floaters or decrease in vision.Follow up:The patient is to return in 2 d for cornea check os and re- ascans OD.
--- OUTSIDE RECORDS SUMMARY | 2017-10-19 12:19 | XMS REPORT ---
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 Deny AL, Prakash Primary Care Physician Unavailable Payers Type Date Identification Numbers Payment Provider Subscriber Health Maintenance Policy Number: BC/BS [place] P[place] [facility] [place] [id number] PayID: [id number] [address] [place] [address] Problems Date Description Provider Status Onset: 11/29/2016 [...] Hx Unknown Medications 2017 - 2017 Tobramycin-Dex Hx Suspension 0.3-0.1% 1bottl 1gtt H10.011 Danny amethasone 2018 - sanchez Wallace, 08/01/ eye Scooter 2018 three times a day Isabela Breeze 2 / Hx Disk 2Test Use Two Unknown Test 0000 - Times A 07/25/ Day as 2018 Needed Levemir / Hx Solution 100Unit/ML Inject Unknown Flextouch 0000 - Pen-Inject 20 Units 07/25/ Under 2018 The Skin Once Daily Vital Signs Date Vital Result Comment 09/08/2017 Intraocular Pressure Right Eye 17 mmHg Intraocular Pressure Left Eye 17 mmHg 08/01/2017 Intraocular Pressure Right Eye 17 mmHg 11/29/2016 Intraocular Pressure Right Eye 16 mmHg Intraocular Pressure Left Eye 16 mmHg Results Description No Information Procedures Date CPT Code Description Status 10/12/2017 63183 Eye Exam Est Intermediate Completed 09/08/2017 01123 Ophthalmic Biometry By Partial Coherence Interferometry Completed W/Intra 09/08/2017 39888 Eye Exam Est Intermediate Completed 08/01/2017 99550 Oct Retina Completed 08/01/2017 95406 Eye Exam Est Intermediate Completed 07/25/2017 52226 Eye Exam Est Intermediate Completed 11/29/2016 71581 Refraction Completed 11/29/2016 85987 Eye Exam New Intermediate Completed 07/01/2010 93660 Refraction Completed 07/01/2010 79515 Eye Exam Est Intermediate Completed 06/03/2010 65497 Ophthalmoscopy Initial Completed 06/03/2010 10623 Eye Exam New Comprehensive Completed Encounters Type Date Location Provider CPT E/M Dx Office Visit 10/10/2017 12:45p [place] [address] B30.8 H25.813 Plan of Care Future Appointment(s):11/29/2017 10:30 am - Chevy Neumann OD at Main Hxsmjb69 11:15 am - Chevy Neumann OD at Main Vcsron9910/19/2017 9:45 am - Danny Wallace M.D. at Main Abyuys7010/26/2017 8:45 am - Danny Wallace M.D. at Main Kmrfsi7410/18/2017 11:05 am - Danny Wallace M.D. at Main Udwkmu7810/25/2017 11:05 am - Danny Wallace M.D. at Main Wbneat3410/12/2017 - Danny Wallace M.D.H10.012 Acute follicular conjunctivitis, left eyeFollow up:tuesday office tuesday ORH25.813 Combined forms of age-related cataract, bilateral
--- OUTSIDE RECORDS SUMMARY | 2017-10-19 12:19 | XMS REPORT ---
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 ([facility] [place] [id number] PayID: [id number] [address] [place] [address] Problems Date Description Provider Status Onset: 11/29/2016 [...] Information Procedures Date CPT Code Description Status 09/08/2017 21945 Ophthalmic Biometry By Partial Coherence Interferometry Completed W/Intra 09/08/2017 78565 Eye Exam Est Intermediate Completed 08/01/2017 44342 Oct Retina Completed 08/01/2017 80853 Eye Exam Est Intermediate Completed 07/25/2017 37287 Eye Exam Est Intermediate Completed 11/29/2016 91023 Refraction Completed 11/29/2016 41177 Eye Exam New Intermediate Completed 07/01/2010 47381 Refraction Completed 07/01/2010 43229 Eye Exam Est Intermediate Completed 06/03/2010 72184 Ophthalmoscopy Initial Completed 06/03/2010 70900 Eye Exam New Comprehensive Completed Encounters Type Date Location Provider CPT E/M Dx Office Visit 10/10/2017 12:45p [place] [address] B30.8 H25.813 Plan of Care Future Appointment(s):11/22/2017 1:00 pm - Chevy Neumann OD at Main Vqdnqx3809/2017 10:15 am - Chevy Neumann, OD at Main Coqdwe5510/19/2017 9:45 am - Danny Wallace M.D. at Main Smqxgf3410/18/2017 11:45 am - Danny Wallace M.D. at Main Zjwnnx1710/12/2017 9:30 am - Danny Wallace M.D. at Main Kuzffd1610/11/2017 9:45 am - Danny Wallace M.D. at Main Pikzdv2210/10/2017 - Chevy Neumann, ODB30.8 Other viral conjunctivitisFollow up:2 days f/uH25.813 Combined forms of age- related cataract, bilateralFollow up:2 days f/u
[2017-10-19 12:31] LABS: ABS Basophils 0.1 10^3/ul (0-0.2); ABS Eosinophils 0.1 10^3/ul (0-0.6); ABS Lymphocytes 1.8 10^3/ul (1.0-4.8); ABS Monocytes 0.5 10^3/ul (0-0.8); ABS Neutrophils 5.1 10^3/ul (1.5-7.7); ABS Nucleated RBC 0 10^3/ul; Eosinophil % 1.7 % (0-6); Hematocrit 41 % (35-47); Hemoglobin 14.3 g/dl (12.0-16.0); Lymphocyte % 23.3 % (25-47); Mean Corpuscular HGB Conc 35 g/dl (31-36); Mean Corpuscular Hemoglobin 29 pg (27-31); Mean Corpuscular Volume 83 fL (80-97); Mean Platelet Volume 8.6 um3 (7.4-10.4); Nucleated Red Blood Cells % 0.1; Platelet Count 272 10^3/ul (150-450); Red Blood Count 4.96 10^6/ul (4.00-5.40); Red Cell Distribution Width 13 % (10.5-15); White Blood Count 7.6 10^3/ul (3.5-10.8)
[2017-10-19 12:40] LABS: INR 0.86 (0.77-1.02)
--- NOTE | 2017-10-19 12:44 | RAD ---
HISTORY: Neurological Changes/Code Jennings COMPARISONS: None VIEWS: 1: frontal portable view of the chest at 12:28 PM FINDINGS: LINES AND TUBES: None. CARDIOMEDIASTINAL SILHOUETTE: The cardiomediastinal silhouette is normal for portable technique. PLEURA: The costophrenic angles are sharp. No pleural abnormalities are noted. LUNG PARENCHYMA: The lungs are clear. ABDOMEN: The upper abdomen is clear. There is no subphrenic gas. BONES AND SOFT TISSUES: No bone or soft tissue abnormalities are noted. IMPRESSION: NO ACTIVE CARDIOPULMONARY DISEASE.
[2017-10-19 12:48] LABS: EGFR Non-African American 48.2 (>60)
[2017-10-19] MEDS ORDERED: Aspirin 81 mg CHEW TAB* 81 MG TAB.CHEW PO ONE (12:48)
[2017-10-19] MEDS ORDERED: Clopidogrel TAB* 300 MG PO ONE (13:19)
[2017-10-19] MEDS ORDERED: Clopidogrel TAB* 300 MG ONE (13:25)
--- NOTE | 2017-10-19 13:41 | CONSULT ---
NIH Scale - NIH Scale Level of Consciousness: Alert/Keenly Responsive Ask Patient the Month and His/Her Age: Both Correct Ask Pt to Open/Close Eyes and Maintenance Technician 2Nd Shift/Release Non-Paretic Hand: Both Correctly Best Gaze (Only Horizontal Eye Movement): Normal Visual Field Testing: No Visual Loss Facial Paresis-Pt to Smile & Close Eyes or Grimace Symmetry: Normal/Symmetrical Motor Function - Right Arm: No Drift-Holds 10 Seconds Motor Function - Left Arm: No Drift-Holds 10 Seconds Motor Function - Right Leg: No Drift-Holds 10 Seconds Motor Function - Left Leg: No Drift-Holds 10 Seconds Limb Ataxia-Must be out of Proportion to Weakness Present: Absent Sensory (Use Pinprick to Test Arms/Legs/Trunk/Face): Normal Best Language (Describe Picture, Name Items): No Aphasia Dysarthria (Read Several Words): Normal Extinction and Inattention: No Abnormality Total Score: 0
[2017-10-19] MEDS ORDERED: Iodixanol* (CONTRAST) 320 MG/ML 100 ML SDV IV ONE (13:54)
[2017-10-19] MEDS ORDERED: Losartan TAB* 25 MG PO ONE (13:57)
--- NOTE | 2017-10-19 14:04 | RAD ---
HISTORY: tia COMPARISONS: None TECHNIQUE: Multiple contiguous axial CT scans were obtained of the head After the administration of nonionic intravenous contrast timed to the systemic arterial phase of contrast enhancement. Coronal and sagittal multiplanar reformations are submitted for review. Multiple 3-D maximum intensity projection reconstructions are also submitted for review. FINDINGS: RIGHT VERTEBRAL ARTERY: The distal right vertebral artery is unremarkable, without stenosis. LEFT VERTEBRAL ARTERY: The distal left vertebral artery is unremarkable, without stenosis. DOMINANCE: The left vertebral artery is dominant. DISTAL RIGHT CERVICAL INTERNAL CAROTID ARTERY: The distal right cervical internal carotid artery is unremarkable. DISTAL LEFT CERVICAL INTERNAL CAROTID ARTERY: The distal left cervical internal carotid artery is unremarkable. INTRACRANIAL CIRCULATION: There is focal short segment stenosis of the distal third of the basilar artery, best seen on sagittal image 25 of series 602.2 with approximately 60% luminal narrowing. There is a small fenestration of the proximal third of the basilar artery. Elsewhere, there is no aneurysm, vascular malformation, occlusion, or stenosis of the intravenous fixation. The anterior communicating artery complex is clear. Bilateral posterior communicating arteries are identified. VENOUS CIRCULATION: The venous system is unremarkable. PERFUSION: There is no obvious parenchymal perfusion deficit. HEMORRHAGE/INFARCT: There is no hemorrhage or acute infarct. MASSES/SHIFT: There is no mass or shift. EXTRA-AXIAL SPACES: There are no extra-axial fluid collections. SULCI AND VENTRICLES: The sulci and ventricles are normal in size and position for the patient's stated age. CEREBRUM: There are no focal parenchymal abnormalities. BRAINSTEM: There are no focal parenchymal abnormalities. CEREBELLUM: There are no focal parenchymal abnormalities. PARANASAL SINUSES: The paranasal sinuses are clear. ORBITS: The orbits are unremarkable. BONES AND SOFT TISSUE: No bone or soft tissue abnormalities are noted. OTHER: There is no abnormal enhancement. IMPRESSION: FOCAL STENOSIS OF THE DISTAL THIRD OF THE BASILAR ARTERY.
--- NOTE | 2017-10-19 14:47 | RAD ---
CPT II Codes: 3100F INDICATION: Transient ischemic attack COMPARISON: None TECHNIQUE: Multiple copeland scale, color and doppler tracings of the common, internal and external carotid and vertebral arteries were obtained. Stenosis estimations reflect velocity criteria that have been correlated to angiographic stenosis calculations based on the distal internal carotid diameter. Right carotid: There is mild to moderate calcified atherosclerosis plaque within the right carotid bulb. The peak systolic velocity in the proximal right internal carotid artery is 109 cm/s and the maximum end-diastolic velocity is 27 cm/s. The peak systolic velocity in the distal common carotid artery is 80 cm/s and the maximum end-diastolic velocity is 22 cm/s. The internal to common carotid ratio is 1.37. This would be consistent with a less than 50% stenosis. Left carotid: There is mild partially calcified plaque within the left carotid bulb. The peak systolic velocity in the proximal right internal carotid artery is 58 cm/s and the maximum end-diastolic velocity is 19 cm/s. The peak systolic velocity in the distal common carotid artery is 90 cm/s and the maximum end-diastolic velocity is 20 cm/s. The internal to common carotid ratio is 0.62. This would be consistent with a less than 50% stenosis. Vertebrals: There is antegrade flow in both vertebral arteries. IMPRESSION: There is no sonographic evidence of hemodynamically significant stenosis in the bilateral carotid arteries.
[2017-10-19] MEDS ORDERED: Acetaminophen TAB* 325 MG PO PRN (15:45)
[2017-10-19] MEDS ORDERED: Ondansetron INJ* 2 MG/ML VIAL IV PRN (15:45)
[2017-10-19] MEDS ORDERED: Dextrose 50% Syringe 50 ML* 25 GM/50 ML SYRINGE IV PUSH PRN (15:45)
[2017-10-19] MEDS ORDERED: hydrALAZINE IV* 20 MG/ML VIAL IV SLOW PU PRN (15:54)
[2017-10-19] MEDS ORDERED: Atorvastatin* 80 MG TAB PO SCH (17:00)
[2017-10-19] MEDS ORDERED: Ketorolac 0.5% OPHTH (NF) 0.5 % 5 ML BTL LEFT EYE SCH ×2 (17:00→21:00)
--- NOTE | 2017-10-19 18:45 | RAD ---
HISTORY: Intermittent face numbness COMPARISONS: Same day CTA of the head that identified focal stenosis of the distal one third of the basilar artery. TECHNIQUE: The following sequences were obtained of the head: Sagittal T1-weighted images, axial T2-weighted images, axial FLAIR images, axial susceptibility weighted images, axial T1-weighted images. Additionally, axial diffusion-weighted images were obtained with calculated apparent diffusion coefficients.. FINDINGS: HEMORRHAGE/INFARCT: There is no hemorrhage or acute infarct. MASSES/SHIFT: There is no mass or shift. EXTRA-AXIAL SPACES/MENINGES: There are no extra-axial fluid collections. SULCI AND VENTRICLES: The sulci and ventricles are normal in size and position for the patient's stated age. CEREBRUM: There is a mild degree of scattered periventricular subcortical T2 bright foci that did not correspond to any increased intensity on diffusion-weighted imaging. Otherwise the soliman-white matter differentiation is adequately maintained. There are no suspicious masses or mass effect. BRAINSTEM: There are no focal parenchymal abnormalities. CEREBELLUM: There are no focal parenchymal abnormalities. The cerebellar tonsils are normal in size and position. SELLA: The sella is normal. PINEAL: The pineal region is clear. CP ANGLE/TEMPORAL BONES: The labyrinthine structures are grossly normal. VESSELS: Normal flow-voids are noted within the visualized vertebral vasculature. DIFFUSION ABNORMALITIES: There are no diffusion abnormalities. PARANASAL SINUSES/MASTOIDS: The paranasal sinuses are clear. ORBITS: The orbits are unremarkable. BONES AND SOFT TISSUE: No bone or soft tissue abnormalities are noted. IMPRESSION: 1. NO MR EVIDENCE OF ACUTE OR FOCAL TERRITORIAL INFARCTION. 2. SCATTERED SUBCENTIMETER PERIVENTRICULAR AND SUBCORTICAL FLUID BRIGHT FOCI ARE MOST CONSISTENT WITH CHRONIC MICROVASCULAR DISEASE. IF THERE IS CLINICAL SUSPICION FOR THE DEMYELINATING DISEASE FURTHER CHARACTERIZATION CAN BE MADE WITH CONTRAST-ENHANCED MRI OF THE BRAIN.
[2017-10-19] MEDS: Tobramycin/Dexameth OPTH.SUSP* 2.5 M L BTL LEFT EYE SCH (19:48)
[2017-10-19] MEDS ORDERED: prednisoLONE 1% OPHTH.SUSP* 5 ML OPHTH.SUSP LEFT EYE SCH (21:00)
--- NOTE | 2017-10-19 21:14 | CONS ---
ADDENDUM NOW INCLUDED ON THIS REPORT CC: Dr. Barclay * NEUROLOGY CONSULTATION: DATE OF CONSULTATION: 10/19/17 REFERRING PROVIDER: Dr. Mello. LOCATION: She is in the emergency room. CHIEF COMPLAINT: Left-sided numbness. HISTORY OF PRESENT ILLNESS: Michelle Eagle is a 52-year-old right-handed woman who yesterday morning after she had been up a little while noted that her left leg felt heavy and somewhat numb. It lasted about half an hour and seemed to involve the left side of her arm subsequently. It may have involved the left side of her face, but then it resolved. She went ahead and had cataract surgery yesterday, which was uncomplicated. I spoke with Dr. Wallace and he said everything went smoothly, although her blood pressure was elevated when she first came in and her blood sugar was elevated and they gave her some insulin. She felt fine yesterday evening. This morning she felt well and was going to have something to eat at a [employer] with her daughter. She started to get a sense of numbness of her entire left side including face, arm and leg. At one point, it seemed to spread a little bit to her right side of her face. Her legs felt shaky as though she might fall. Her daughter called an ambulance and that was right around 10:30 this morning. She was brought into the emergency room where she was hypertensive and given labetalol. Her symptoms have resolved. I was asked to see her in consultation. Currently, at the time of my evaluation, she reports her usual chronic numbness in her feet that she attributes to diabetic neuropathy but no numbness in her face or hands or legs, or weakness. She has not had any problems with headache. She does have a tingling sensation on her scalp. Her speech was slurred at onset of her symptoms around 10:30 this morning, but that resolved. She has not noticed any change in her vision other than improvement in the vision in her left eye since her cataract surgery yesterday. She did not fall. There is no prior history of transient ischemic attack or stroke. Her brain CT scan does show what appears to be a chronic right caudate lacunar infarction. She has a history of hypertension and was just recently a couple of weeks ago put on Diovan. She did not take it this morning. She is on insulin for diabetes, which she admits is poorly controlled. She is a nonsmoker. There is no history of heart disease. There is no history of blood clots or bleeding diathesis. She does not take anticoagulants and does not take aspirin on a regular basis. PAST MEDICAL HISTORY: Notable for diabetes for over 5 years, hypertension recently started treatment, vitamin B12 deficiency, macular degeneration for which she receives intraocular therapy. She is a former smoker. MEDICATIONS: At home, consist of: 1. Levemir insulin 20 units every day. 2. Cozaar 50 mg p.o. every day. 3. Multiple eye drops for her recent cataract extraction and also for her macular degeneration. 4. Vitamin B12 of 500 mcg p.o. every day. 5. Ibuprofen 200 mg p.o. 4 times a day p.r.n. joint pain. 6. Lucentis 0.5 mg IM q.6 weeks. ALLERGIES: She is allergic to PENICILLIN which caused a rash, and also to LYRICA which caused leg swelling I believe. FAMILY HISTORY: Noncontributory. SOCIAL HISTORY: She is an ex-smoker, does not drink alcohol, lives with her family. REVIEW OF SYSTEMS: Negative for headaches, falls, difficulty swallowing, recent fevers, or infections. No abdominal pain or chest pain. No history of heart disease. She has pain and numbness in her feet for over 5 years. She gets intraocular injections at a retinal clinic in [place] for her macular degeneration. Other than cataract surgery, no recent surgeries and no recent trauma. 14 point ROS is otherwise negative other than PMH and HPI. PHYSICAL EXAMINATION: She is an overweight woman, lying in the emergency room [facility]. Her blood pressure was initially 206/113, it came down to 172/95 after labetalol. When I examined her, it was running about 170/118. Heart rate is in the 90s and regular. Respiratory rate is 18, oxygen saturation is 96% on room air. Temperature 98.6. Heart is in a regular rhythm and I do not hear any murmurs. Lungs are clear. Carotid pulses are symmetrical and there are no cervical bruits. Oral mucosa is moist and atraumatic. Neurological Exam: The left pupil is pharmacologically dilated at about 4.5 to 5 mm and reacts weakly to light by about 1 mm. Right pupil is about 3.5 mm and reacts to light under 2.5 mm. Funduscopic exam revealed sharp discs bilaterally, I do not see any hemorrhages. Eye movements are normal. Visual da silva are full to confrontation. Facial musculature is symmetric. Facial sensation is intact to light touch and pin and symmetric. Palate and tongue appear normal, tongue protrudes in the midline, there is no dysarthria. Hearing is intact. Motor exam reveals normal strength and tone in upper and lower extremities proximally and distally. There is no drift of any limb. Sensory exam is normal for stocking loss to light touch and pin to the distal third of the tibias. Light touch and pin discrimination is otherwise intact and symmetric in the extremities. Reflexes are hypoactive, but present and symmetric. Ankle reflexes are absent. Plantar responses are flexor on the right and equivocal on the left. There is no rest, sustention, or action tremor. Finger taps are normal in the hands. She is alert and oriented with intact memory. She has adequate attention, concentration, and fund of knowledge. Language is fluent and memory is intact. LABORATORY DATA/DIAGNOSTIC STUDIES: Include a CT of the brain, which I reviewed. Interpretation is a right caudate infarct of indeterminate age. Other laboratory data is notable for a CBC which is within normal limits, INR of 0.86 and PTT 26.5, chemistry profile notable for a creatinine of 1.17, glucose 236, hemoglobin A1c from 09/26/17 was 14%. Cholesterol today is 314 and LDL cholesterol of 226. IMPRESSION: Impression is that of a transient ischemic attack which appears to be fluctuating. Currently, her NIH score is 0. I would like to get a CT angiogram of her head. We will scan get an MRA brain and not neck and ask for the lowest dose possible because of her chronic renal disease. She is still a potential tPA candidate if she worsens. I spoke with Dr. Danny Wallace on the phone to see if it was deemed safe for her to get tPA after her cataract surgery yesterday and he feels that there should not be an increased risk of bleeding. I have explained to the patient that she is having symptoms of a transient ischemic attack or stroke and the necessity of obtaining the CT angiogram. She has been given aspirin and I would like to also load her with Plavix 300 mg which I have put the order in and told her nurse. I have discussed my impression with Dr. Mello. If she does not have a large vessel occlusive lesion or high-grade stenosis, then she will be admitted for further evaluation and treatment. NEUROLOGY CONSULTATION ADDENDUM: DATE OF CONSULTATION: 10/19/17 LOCATION: She is in the emergency room to be admitted to [address] [place] [address]. HOSPITALIST: Tariq Prabhakar NP. Michelle had a carotid ultrasound done while still here in the emergency room, which did not reveal any significant stenosis. She had a CT angiogram of the brain, which I reviewed. She does have distal basilar stenosis estimated by Dr. Abdul, the radiologist, at about 60%. The rest of the CT angiogram of the head was unremarkable. I reevaluated Michelle at just about 3 p.m. and she has no recurrence of her symptoms. She feels generally well. I explained the results of the studies to Michelle, her , and a friend. I advised that she be admitted and I spoke with Tariq Prabhakar NP, about the plan. We will continue dual antiplatelet therapy, obtain a non-contrast MRI of the brain and an echocardiogram and monitor on telemetry overnight. [id number]/CPS #: [id number]/[id number] #: [id number] [facility]
--- NOTE | 2017-10-19 21:22 | CONS ---
NEUROLOGY CONSULTATION: ADDENDUM: DATE OF CONSULTATION: 10/19/17 LOCATION: She is in the emergency room to be admitted to [address] [place] [address]. HOSPITALIST: Tariq Prabhakar NP. Michelle had a carotid ultrasound done while still here in the emergency room, which did not reveal any significant stenosis. She had a CT angiogram of the brain, which I reviewed. She does have distal basilar stenosis estimated by Dr. Abdul, the radiologist, at about 60%. The rest of the CT angiogram of the head was unremarkable. I reevaluated Michelle at just about 3 p.m. and she has no recurrence of her symptoms. She feels generally well. I explained the results of the studies to Michelle, her , and a friend. I advised that she be admitted and I spoke with Tariq Prabhakar NP, about the plan. We will continue dual antiplatelet therapy, obtain a non-contrast MRI of the brain and an echocardiogram and monitor on telemetry overnight. [id number]/CPS #: [id number] [facility]
--- NOTE | 2017-10-19 21:47 | HP ---
CC: Dr. Barclay; Dr. Khan * HISTORY AND PHYSICAL: DATE OF ADMISSION: 10/19/17 PRIMARY CARE PROVIDER: Dr. Barclay. ATTENDING PHYSICIAN WHILE IN THE HOSPITAL: Nasreen Machado DO * (report dictated by Tariq Prabhakar NP). CHIEF COMPLAINT: 1. Left-sided numbness. 2. Difficulty with speech. HISTORY OF PRESENT ILLNESS: Ms. Eagle is a 52-year-old female patient with a history of diabetes, history of cataract extraction, history of hypertension, history of neuropathy, and macular degeneration. She is coming into our emergency department today stating that she has noted that yesterday she was at her house and she was noticing that she was having left-sided numbness. It started in the foot. She thought maybe it was her neuropathy, but it progressed and then became whole leg, her face, her arm. She thought she maybe slept on it wrong. She had no trouble with speech or facial drooping. She had left leg weakness. She said that the leg felt weak. She said her gait felt unsteady. It lasted about half an hour and it went away. She thought maybe she just slept funny on that side. She actually went ahead and had cataract surgery. She underwent the surgery with no complications. Today, she went to see her followup appointment for the cataract. Things are simply doing well. She went to [facility] with a friend and at [facility] she again started having numbness in her left side and she was having numbness in the right leg as well. It was in the face, the arm and today she had trouble with her speech. She said anytime she tried to speak just the words came out garbled and nonsensical. She had weakness to both her legs. She sat down. Those symptoms lasted about 30 minutes. By the time the ambulance got there, the symptoms were gone. She denies having any syncope. She denied having any chest discomfort. No palpitations in her chest. She does state that her sugars have not been well controlled. She said that she has not had any change in medications. She was concerned because of the symptoms and she came into the ED. She was ultimately found to have a 60% stenosis of her basilar artery. Her symptoms had resolved. Because of the possibility of a TIA, we were asked to evaluate for admission. PAST MEDICAL HISTORY: Significant for: 1. Diabetes. 2. Cataracts. 3. Hypertension. 4. Neuropathy. 5. Macular degeneration. PAST SURGICAL HISTORY: She has had: 1. Cataract extraction. 2. ORIF of the left toe. MEDICATIONS: Home meds according to list provided include: 1. Lucentis 0.5 mg IM every 6 weeks. 2. Cozaar 50 mg daily. 3. Ketorolac 1 drop ophthalmic q.i.d. 4. Prednisone 1 drop ophthalmic b.i.d. 5. TobraDex 1 drop ophthalmic every 4 hours. 6. Levemir 20 units p.o. daily. 7. B12 500 mcg daily. 8. Ibuprofen 200 mg every 6 hours as needed. ALLERGIES TO MEDICATIONS: Include PENICILLIN and LYRICA. FAMILY HISTORY: Mother had a history of COPD. Father had a history of SC. SOCIAL HISTORY: The patient is a former smoker. She smoked for about 10 years. She quit over 20 years ago. She does not drink alcohol. She is . She has no children. Surrogate decision maker is her . REVIEW OF SYSTEMS: There is no documented fever. She denies having any significant weight change. There is no double vision. She denies having any ear discharge. She denied having any rhinorrhea. There is no sore throat. There is no thyroid enlargement. She is denying having any chest pain. There is no shortness of breath. No abdominal pain. There was no nausea, no vomiting. There is no dysuria. There was no frequency. No seizure, no loss of conscious. No pruritus and no skin ulcerations. Review of 14 systems was completed, all others negative. PHYSICAL EXAMINATION GENERAL: At this time, Ms. Eagle is a 52-year-old female patient. She is sitting in the ED stretcher, does not appear to be in any acute distress. VITAL SIGNS: Reveal blood pressure now of 195/126, last blood pressure was 143/ 100; pulse was 96; respirations were 18; O2 saturation was 95%; temperature was 98.6. HEENT: Head: Atraumatic, normocephalic. Eyes: Sclerae anicteric and not pale. Pupils were equal and reactive. The left pupil was greater in size than the right pupil that is the operative eye from yesterday. EOMs were intact. Throat: Oral mucosa appears to be moist. No oropharyngeal erythema. NECK: Supple. LUNGS: Clear to auscultation. No wheezes, rales, or rhonchi. HEART: Sounds S1, S2. Regular rate and rhythm. No murmurs, rubs, or gallops. ABDOMEN: Soft. It was flat, nontender. Bowel sounds were present. EXTREMITIES: Pulses were 2+ throughout and she is moving all 4 extremities with 5/5 strength. NEUROLOGICAL: The patient is awake. She is alert. She is oriented x3. Her speech is clear. Her tongue is midline. She had no facial drooping. Finger-to - nose was intact bilaterally. Enug-oh-lilk intact bilaterally. Cranial nerves II through XII were intact. Speech again clear. No numbness was elicited on my exam. No focal deficits were elicited. SKIN: Intact. DIAGNOSTIC STUDIES/LAB DATA: Labs are revealing a WBC of 7.6, RBC of 4.96, hemoglobin of 14.3, hematocrit of 41, platelet count of 272. INR was 0.86, PTT of 26.5. Her sodium was 134, potassium of 4.1, chloride of 99, bicarb 26, BUN 23, creatinine 1.17, glucose 236, lactic 1.2, calcium 9. Total bili 0.5, AST 13 , ALT 9, alk phos 47. Troponin 0. Albumin of 3.3. LDL was 226. She had multiple imaging in the ED. Brain CT, which did show small age indeterminate lacunar infarct of the right caudate head. She had a chest x-ray obtained today, which revealed no active cardiopulmonary disease. She had an EKG obtained today, which revealed normal sinus rhythm with no ST elevations or T-wave inversions noted at this point. No previous for comparison. She had a head CTA obtained today, which revealed impression: Focal stenosis of the distal third of the basilar artery. She had a carotid Doppler exam done today, impression: There is no sonographic evidence of hemodynamically significant stenosis in the bilateral carotids. Old medical records were reviewed. ASSESSMENT AND PLAN: Ms. Eagle is a 52-year-old female patient coming into the ED today with complaints of numbness to the left side, now resolved. She will be admitted under observation status for: 1. Transient ischemic attack. At this point, the concern is that stenosis of the distal third of the basilar artery. Dr. Khan did touch base with [place] and I will refer you to his consult for details, but in short, the plan will be to go ahead and put her on dual therapy antiplatelet with Plavix and aspirin, which have been started. She has been loaded with both. We will get an MRI of the brain, echo. Neuro checks. Telemetry has been ordered and we will go ahead and get a lipid panel and A1c in the morning and we will continue to follow. 2. Diabetes. Again, we will put her on her Levemir and sliding scale. Last A1c was 14. 3. Hyperlipidemia. Again, statin will be started. Her LDL was 226. She will be started on 80 mg of atorvastatin. 4. Hypertension. In the setting of basilar artery stenosis, I will go ahead and allow for permissive hypertension. We will treat for systolics greater than 200 and diastolics greater than 105. I would like to try to keep her blood pressure systolically greater than 140. I touch base with Dr. Khan on this and he was in agreement. 5. History of cataracts. Continue with her drops as prescribed. 6. Code status: Full code. 7. Macular degeneration. Continue with her current medical regimen. 8. DVT prophylaxis: SCDs have been ordered. 9. Fluids, electrolytes, and nutrition: She can have a consistent carb diet. TIME SPENT: Time spent on admission was approximately 60 minutes, greater than half the time was spent [id number] with the patient obtaining my history and physical, other half of the time was spent going over the plan of care with the patient and implementing the plan of care. I discussed the plan of care with my attending, Dr. Machado, she is in agreement. TARIQ PRABHAKAR, SANTIAGO [id number]/CPS #: [id number] NOEMY
[2017-10-19] MEDS: Insulin LISPRO* 1 UNITS UNIT SUBCUT SCH (21:58)
[2017-10-19 22:17] LABS: Urine Appearance Cloudy; Urine Blood 1+ (Negative); Urine Color Yellow; Urine Ketones Negative (Negative); Urine Protein 3+(>=500 mg/dL) (Negative); Urine Red Blood Cell Trace(0-2/hpf) (Absent); Urine Specific Gravity 1.027 (1.010-1.030); Urine Urobilinogen Negative (Negative); Urine White Blood Cell Trace(0-5/hpf) (Absent)
[2017-10-19] MEDS: prednisoLONE 1% OPHTH.SUSP* 5 ML OPHTH.SUSP LEFT EYE SCH (22:24)
[2017-10-19] MEDS: MOXIFLOXACIN 0.5% LEFT EYE SCH (22:24)
[2017-10-19] MEDS: CMCS: Ketorolac 0.5% OPHTH (NF) 0.5 % 5 ML BTL LEFT EYE SCH (22:25)
[2017-10-19] MEDS ORDERED: Insulin GLARGINE(*) 1 UNITS UNIT SUBCUT SCH (23:00)
[2017-10-20 06:32] LABS: ABS Basophils 0.1 10^3/ul (0-0.2); ABS Eosinophils 0.1 10^3/ul (0-0.6); ABS Lymphocytes 1.6 10^3/ul (1.0-4.8); ABS Monocytes 0.7 10^3/ul (0-0.8); ABS Neutrophils 4.2 10^3/ul (1.5-7.7); ABS Nucleated RBC 0 10^3/ul; Eosinophil % 2.1 % (0-6); Hematocrit 37 % (35-47); Hemoglobin 12.8 g/dl (12.0-16.0); Lymphocyte % 24.3 % (25-47); Mean Corpuscular HGB Conc 35 g/dl (31-36); Mean Corpuscular Hemoglobin 29 pg (27-31); Mean Corpuscular Volume 83 fL (80-97); Mean Platelet Volume 8.1 um3 (7.4-10.4); Nucleated Red Blood Cells % 0; Platelet Count 254 10^3/ul (150-450); Red Blood Count 4.44 10^6/ul (4.00-5.40); Red Cell Distribution Width 13 % (10.5-15); White Blood Count 6.8 10^3/ul (3.5-10.8)
[2017-10-20 06:35] LABS: INR 0.93 (0.77-1.02)
[2017-10-20 06:54] LABS: EGFR Non-African American 55.2 (>60)
[2017-10-20] MEDS: prednisoLONE 1% OPHTH.SUSP* 5 ML OPHTH.SUSP LEFT EYE SCH (08:42)
[2017-10-20] MEDS: CMCS: Ketorolac 0.5% OPHTH (NF) 0.5 % 5 ML BTL LEFT EYE SCH (08:42)
[2017-10-20] MEDS: MOXIFLOXACIN 0.5% LEFT EYE SCH (08:42)
[2017-10-20] MEDS: Insulin LISPRO* 1 UNITS UNIT SUBCUT SCH ×2 (08:43→12:44)
[2017-10-20] MEDS ORDERED: Aspirin 81 mg CHEW TAB* 81 MG TAB.CHEW PO SCH (09:00)
[2017-10-20] MEDS ORDERED: Clopidogrel TAB* 75 MG PO SCH (09:00)
[2017-10-20] MEDS ORDERED: Insulin GLARGINE(*) 1 UNITS UNIT SUBCUT SCH (09:00)
[2017-10-20] MEDS ORDERED: Cyanocobalamin TAB* 500 MCG PO SCH (09:00)
[2017-10-20] MEDS: Tobramycin/Dexameth OPTH.SUSP* 2.5 M L BTL LEFT EYE SCH (10:38)
[2017-10-20 12:55] VITALS: BP 164/82
--- NOTE | 2017-10-20 21:55 | PN ---
CC: Dr. Barclay * NEUROLOGY FOLLOWUP NOTE: DATE OF FOLLOWUP: 10/20/17 LOCATION: She is in room 442. HOSPITALIST: Brannon Jorge MD CHIEF COMPLAINT: Dizziness, numbness. INTERVAL HISTORY: Since yesterday, Ms. Eagle feels much better. She feels a little bit dizzy at times which she thinks might be because of the change in her blood pressure medications and diabetes control. She does not note any weakness or slurred speech anymore. She has a little bit of tingling sensation on her forehead fairly persistently. She has no other symptoms. MEDICATIONS: Reviewed and she is on: 1. Aspirin 81 mg p.o. daily. 2. Clopidogrel 75 mg p.o. daily. 3. Atorvastatin 80 mg p.o. daily. 4. Vitamin B12 of 500 mcg p.o. daily. 5. Insulin sliding scale. 6. Lantus insulin 20 units subcu at 2100 hours. 7. Multiple eye drops. PHYSICAL EXAMINATION: On exam, she is well nourished and well hydrated. Temperature 97.9, blood pressure 141/79, heart rate in the 80s. Speech is clear. Facial musculature symmetric. There is no dysarthria. She is alert and oriented. Memory is intact and language is fluent. LABORATORY DATA: From today is notable for normal CBC, glucose is 204, this morning chemistry profile notable for glucose of 189 and creatinine of 1.04, which is an improvement. Cholesterol early this morning at 265, LDL 188. MRI of the brain was performed last evening and I reviewed the images. There is no evidence of an acute stroke. There is some scattered white matter hyperintensities consistent with chronic ischemic disease. Echocardiogram was performed, but the report is pending. IMPRESSION: Impression is that of a probable basilar transient ischemic attack. She is on dual antiplatelet therapy and has improvement in blood pressure control and blood sugar control. She vows to be vigilant about trying to control her blood glucose and hypertension, which she has not in the past. She is now on a high dose statin and her lipid profile will need to be monitored over time. Recommend switching to Plavix monotherapy after approximately one month of dual antiplatelet therapy. I will plan to see her in followup in my office in about 3 to 4 weeks to make sure that her vascular risk factors continued to be optimized and that she switched to platelet monotherapy. [id number]/[facility] #: [id number] NOEMY
--- NOTE | 2017-10-21 01:30 | DS ---
CC: Dr. Barclay * DISCHARGE SUMMARY: DATE OF ADMISSION: DATE OF DISCHARGE: 10/20/17. HISTORY: This 52-year-old woman presented with left-sided numbness and difficulty with speech. I noted, she had cataract surgery 2 days before admission. 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 She has peripheral neuropathy too, history is detailed in admission note. She did have a few brief spells previously on arising where she got dizzy and got numb. There are conflicting reports as to whether she had weakness or not. She denied having weakness to me. 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 The MRI of the brain showed no evidence of acute or focal infarction. There is scattered periventricular and subcortical right foci consistent with microvascular disease. CT scan of the brain reported a small age indeterminant lacunar infarct of the right caudate head. Echocardiogram was unremarkable. The patient was started on aspirin and clopidogrel. She was also started on high-dose atorvastatin. I note her LDL was 188, HDL was 39.9, triglycerides 184. Her hemoglobin A1c was 14.0. The patient was referred with diabetic education to the [facility]. FINAL DIAGNOSES: 1. Transient ischemic attack. 2. Diabetes. 3. Macular degeneration. 4. Bipolar disease. 5. Hypertension. DISCHARGE MEDICATIONS: 1. Acetaminophen 650 mg every 4 hours p.r.n. 2. Aspirin 81 mg daily. 3. Atorvastatin 80 mg daily at 5 p.m. 4. Clopidogrel 75 mg daily. 5. Vitamin B12, 500 mcg daily. 6. Losartan 50 mg daily. 7. Ibuprofen 200 mg every 6 hours p.r.n. 8. Insulin detemir 20 units daily. 9. Ketorolac 0.5% 1 drop q.i.d. as prescribed. 10. Prednisolone 1% 1 drop b.i.d. as prescribed. 11. TobraDex 1 drop every 4 hours as prescribed. 12. Ranibizumab as prescribed. The patient was referred to the [facility]. [id number]/[facility] #: [id number] MTDD
== END 2017-10-20 14:57 | disposition home or self-care (01) ==
LOC: ED 11:31 → MEDTELE 15:40
PROVIDERS: ADMIT Internal Medicine; ATTEND Internal Medicine
DX: G45.9 Transient cerebral ischemic attack, unspecified (principal); E11.9 Type 2 diabetes mellitus without complications; H35.30 Unspecified macular degeneration; F31.9 Bipolar disorder, unspecified; I10 Essential (primary) hypertension; Z79.82 Long term (current) use of aspirin; R42 Dizziness and giddiness
CPT/HCPCS: 36415; 70450; 70496; 70551; 71045; 80048; 80053; 80061; 81003; 81015; 83036; 83605; 84484; 85025; 85610; 85730; 86850; 86900; 86901; 87086; 93005; 93306; 93880; 96374; 99285; A9270-GY; G0378; J2405; Q9967

== ENCOUNTER 2017-11-16 06:32 | Emergency (ER) | payer BC ==
--- OUTSIDE RECORDS SUMMARY | 2017-11-16 06:57 | XMS REPORT ---
:1965 External Reference #:[id number] Author Organization Danny Wallace M.D., [facility] Address [address] [place] [address] [address] [place] [address] Phone [phone] Care Team Providers Name Role Phone Deny AL, Prakash Care Team Information Lay Out Drafter Unavailable Deny AL, Prakash Primary Care Physician Unavailable Payers Type Date Identification Numbers Payment Provider Subscriber Health Maintenance Policy Number: BC/BS [facility] [facility] ([facility]) [id number] PayID: [id number] [address] [place] [id number] Problems Date Description Provider Status Onset: 11/29/2016 [...] 1 drops Danny Tromethamine 2018 left eye Wallace, twice a M.D. day Pred Forte 09/13/ Active Suspension 1% 10ml 1 drops Danny 2018 left eye Wallace, four M.D. times a day Losartan 00/00/ Active Tablets 50mg Kasey, Potassium 0000 Zack, RIBBON INKER Clopidogrel / Active Tablets 75mg Kardon, Bisulfate 0000 Koby AL Atorvastatin 00// Active Tablets 80mg Kardon, Calcium 0000 Koby AL Aspir-81 / Active Tablets DR 81mg once per Unknown 0000 day by mouth No Active 08/01/ Hx Unknown Medications 2017 - 2017 No Active 07/25/ Hx Unknown Medications 2017 - 2017 Tobramycin-Dex 07/25/ Hx Suspension 0.3-0.1% 1bottl 1gtt H10.011 Peter amethasone 2018 - e right Wallace, 08/01/ eye M.DJorge 2018 three times a day Isabela Breeze [...] 327 mg/dL High 70 -100 3 1 Insurance Risk Surveyor: [id number] Insurance Risk Surveyor: [id number] 3 Insurance Risk Surveyor: [id number] Procedures Date CPT Code Description Status 10/18/2017 64908 Extracapsular Cataract Extraction W/Intraocular Lens Completed 09/08/2017 64423 Ophthalmic Biometry By Partial Coherence Interferometry Completed W/Intra 09/08/2017 82715 Eye Exam Est Intermediate Completed 08/01/2017 68698 Oct Retina Completed 08/01/2017 76223 Eye Exam Est Intermediate Completed 07/25/2017 00332 Eye Exam Est Intermediate Completed 11/29/2016 19076 Refraction Completed 11/29/2016 08742 Eye Exam New Intermediate Completed 07/01/2010 25273 Refraction Completed 07/01/2010 08094 Eye Exam Est Intermediate Completed 06/03/2010 07812 Ophthalmoscopy Initial Completed 06/03/2010 42481 Eye Exam New Comprehensive Completed Encounters Type Date Location Provider CPT E/M Dx Office Visit 10/17/2017 3:30p Main Office Danny Wallace M.D. 31237 H10.012 H25.813 Office Visit 10/12/2017 9:30a Main Office Danny Wallace M.D. 96577 H10.012 H25.813 Office Visit 10/10/2017 12:45p [place] [address] B30.8 H25.813 Plan of Care Future Appointment(s):11/29/2017 10:30 am - Chevy Neumann, LATRICE at Main [id number] 11:15 am - Chevy Neumann, OD at Main Wpkgja7210/26/2017 - Danny Wallace M.D.Z48.89 Encounter for other specified surgical aftercareFollow up:1 month post op OS and plan surgery OD AUOOTO 24.00, OMIDRIA
--- OUTSIDE RECORDS SUMMARY | 2017-11-16 06:57 | XMS REPORT ---
:1965 External Reference #:[id number] Author Organization [employer] Address [address] [place] [address] [place] [address] Phone [phone] Care Team Providers Name Role Phone Prakash Barcaly MD Primary Care Physician Unavailable Payers Type Date Identification Numbers Payment Provider Subscriber Commercial Effective: Policy Number: ASHER Lexi Eagle 2016 [id number] PayID: [id number] LEE Iglesias [id number] TRINY Fox 46890 Medigap Part B Effective: Policy Number: [facility] Yao Eagle 2009 [id number] Expires: 2010 PayID: [id number] PO Kelsie [id number] TRINY Truong 29541 Medigap Part B Effective: 2010 Policy Number: ASHER Lexi Eagle [id number] Expires: 2013 PayID: [id number] LEE Iglesias [id number] TRINY Fox 91426 Workers Compensation Onset: 2010 Policy Number: [facility] Eric Eagle [id number] PayID: [id number] Problems Date Description Provider Status Onset: 06/16/2010 [...] Form Strength Qnty SIG Indications Ordering Provider Blood Pressure 10/27/ Active Misc 1units check bp I10 Zack Monitor Auto 2018 twice SANTIAGO Parks Inflate weekly at home Metformin HCL 10/27/ Active Tablets 1000mg 60tabs 1 by mouth E11.40 Zack 2018 once SANTIAGO Parks daily. After one week start taking one tablet twice daily. Freestyle 10/21/ Active Kit 1units check BS 2 [employer] 2018 times Real Barclay daily and Scooter,FACP as needed Freestyle Lite 10/21/ Active Strips 100uni check BS 2 Prakash Test 2017 ts times Real Barclay daily and ScooterFACP as needed Freestyle 10/21/ Active Misc 100uni check BS 2 Prakash Lancets 2018 ts times Real Barclay daily and Scooter,FACP as needed Losartan 09/26/ Active Tablets 50mg 30tabs Take One I10 Zack Potassium 2018 Tablet By SANTIAGO Parks Mouth Every Day Sure Comfort 08/23/ Active 100uni Use Once Prakash 31G Pen Needle 2014 ts Daily Real Barclay M.D.,FACP Levemir 01/07/ Active Solution 100Unit/ML 15ml inject 20 E11.40 Zack Flextouch 2014 Pen-Inject units SANTIAGO Parks under the skin daily T.E.D. 10/25/ Active Misc 2units please fit 782.3 Richelle Anti-Embolism 2011 Edilberto, Stockings Knee N.P. Length Pen [place] 31G 10/28/ Active Misc 31G X 6 mm 30unit every day E11.40 Zack X 6mm 2010 s SANTIAGO Parks Lucentis 00/00/ Active Solution 0.5mg/0.05 1 q 6weeks Unknown 0000 ML B-12 00/ Active Tablets 500mg 90tabs 1 by mouth Unknown (Methylcobalami 0000 Sub every day n) Acetaminophen 00/ Active Tablets ER 650mg 1 tab by Unknown ER 0000 mouth q4 hours as needed pain Aspirin 81 Low / Active Chewtabs 81mg 1 by mouth Unknown Dose 0000 every day Atorvastatin 00/ Active Tablets 80mg 1 by mouth Unknown Calcium 0000 every evening Clopidogrel / Active Tablets 75mg 1 by mouth Unknown Bisulfate 0000 every day Freestyle Lite 10/21/ Hx 100uni check BS 2 Prakash Claros 2018 - ts times Real Barclay, 10/21/ daily and Scooter,FACP 2018 as needed Isabela Breeze 2 01/25/ Hx Disk 2Test 50unit test two E11.65 Prakash Test 2017 - s times a Real Barclay, 10/21/ day as Scooter,FACP 2018 needed Victoza 04/07/ Hx Solution 18mg/3ML 6ml 0.6 mg SC Prakash 2017 - Pen-Inject qd for 1 DJorge Barclay, 09/26/ wk then Scooter,FACP 2018 inject 1.2 mg under the skin daily Keflex 01/11/ Hx Capsules 500mg 40caps one tablet Other 2016 - qid x 10 Ordering 04/07/ days Provider 2017 Glipizide ER 03/17/ Hx Tablets ER 10mg 60tabs take one E11.40 Kei 2014 - 24HR tablet by Adiel 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 Breeze 2 Blood 06/05/ Hx Device 1units for Lopez Glucose 2015 - checking [place] Monitoring 10/21/ bid , Scooter System 2018 Isabela Contour 03/28/ Hx Strips 50unit use two E11.65 Kei Blood Glucose 2014 - s times a Adiel, Test Strips 01/25/ day as 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 Losartan 12/06/ Hx Tablets 50mg 30tabs Take One Prakash Edwards 2013 - Tablet By Real Barclay, 03/17/ Mouth Scooter,FACP 2014 Every Day Losartan 11/02/ Hx Tablets 50mg 30tabs 1 by mouth 250.62 Prakash Potassium 2013 - every day Real Barclay, M.DJorge,FACP 2014 Advil 10/26/ Hx Tablets 200mg 1-2 as Prakash 2013 - needed Real Barclay, M.D.,FACP 2018 Ramipril 10/26/ Hx Capsules 5mg 90caps by mouth 250.62 Prakash 2014 - every day Real Barclay, M.D.,FACP 2014 Invokana 10/26/ Hx Tablets 300mg 30tabs take one E11.40 Kei 2014 - tablet by Adiel, 09/26/ mouth 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 Invokana 09/14/ Hx Tablets 100mg 30tabs 1 by mouth 250.62 Prakash 2014 - every day Real Barclay, M.DJorge,FACP 2014 Ramipril 09/14/ Hx Capsules 2.5mg 30caps 1 by mouth 250.62 Prakash 2014 - every day Real Barclay, M.DJorge,FACP 2014 Sure Comfort 04/04/ Hx 100uni Use Once Prakash 31G Pen Needle 2012 - ts Daily Real Barclay, M.DJorge,FACP 2014 Simvastatin 02/01/ Hx Tablets 20mg 90tabs 1 po qpm 250.02 Prakash 2011 - Real Barclay, MJorgeDJorge,FACP 2014 Ramipril 02/01/ Hx Capsules 5mg 30caps Take One 250.02 Prakash 2011 - Capsule By Real Barclay, 09/14/ Mouth M.DJorge,FACP 2014 Every Day Simvastatin 10/27/ Hx Tablets 10mg 30tabs take 1 Richelle 2011 - tablet by Edilberto, 02/01/ mouth at N.P. 2012 bedtime Furosemide 10/25/ Hx Tablets 20mg 15tabs 1 po qam 782.3 Richelle 2011 - Edilberto, 09/14/ N.P. 2014 Avelox 04/01/ Hx Tablets 400mg 10tabs 1 po daily 681.9 Michelle 2012 - Justin, 04/30/ M.D. 2011 Ibuprofen 04/01/ Hx Tablets 600mg 90tabs 1 tab by 681.9 Prakash 2011 - mouth Real Barclay, 10/26/ three M.D.,FACP 2014 times a day prn Simvastatin 12/09/ Hx Tablets 20mg 90tabs 1 po qpm 272.2 Prakash Barclay, 03/25/ Chilango.,FACP 2011 Levemir Flexpen 10/28/ Hx Solution 100Unit/ML 15unit Inject 20 250.62 Richelle 2010 - s Units Edilberto, 01/07/ Under The N.P. 2013 Skin Every 24 Hours Glimepiride 06/16/ Hx Tablets 1mg 30tabs 1 po qd 250.62 Prakash Barclay, 07/29/ MIoana,FACP 2010 Gabapentin 06/16/ Hx Tablets 300mg 150tab 1 tab tid 250.62 Prakash 2010 Samantha matos plus 2 qhs Real Barclay, 07/29/ MIoana,FACP 2010 Cymbalta 06/16/ Hx Caps DR 30mg 45caps 1 po qam 250.62 Prakash 2010 - Part for 2 wks, Real Barclay, then 2 qAM M.Real,FACP 2010 Metformin 06/08/ Hx 500mg 1 po bid 250.02 Prakash Barclay, 06/16/ MIoana,FACP 2010 Januvia 06/03/ Hx Tablets 100mg 30tabs Take One Prakash 2010 - Tablet By Real Barclay, 09/14/ Mouth M.DJorge,FACP 2014 Every Day Gabapentin 05/14/ Hx Capsules 100mg 200cap 2 tid plus 250.62 Prakash Singh s 3 qhs Real Barclay, 06/16/ MIoana,FACP 2010 Metformin HCL 05/14/ Hx Tablets 1000mg 60tabs 1 po bid 250.02 Prakash Barclay, 06/08/ MJorgeDJorge,FACP 2010 Metformin HCL 05/01/ Hx Tablets 500mg 60tabs 1 po bid 250.02 Prakash Barclay, 05/14/ MJorgeDJorge,FACP 2010 Isabela Breeze 2 05/01/ Hx Disk 2Test 50unit Use Two 250.02 Prakash Test Disc 2010 - s Times A Real Barclay, 03/28/ Day as MIoana,FACP 2014 Needed Samuel-Tab / Hx Tablets DR 250mg po qid Unknown 0000 - 2010 Metanx / Hx Tablets 3-35-2mg PO bid 250.02 Unknown 0000 - 2011 Vitamin B-12 / Hx Tablets 500mcg 30tabs 1 by mouth Unknown 0000 - Sub every day 2013 Metanx / Hx Capsules 3-90.314-2 60caps 1 by mouth Unknown 0000 - -35mg bid every 2013 Immunizations CPT Code Status Date Vaccine Lot # [id number] Refused 02/02/2012 Pneumonia Vaccine 53726 Refused 02/02/2012 Influenza Virus 3Yrs & Over 69031 Refused 03/25/2011 Influenza Virus 3Yrs & Over 14187 Refused 12/09/2010 Influenza Virus 3Yrs & Over 75979 Refused 05/14/2010 Influenza Virus 3Yrs & Over Vital Signs Date Vital Result Comment 10/27/2017 Height 65.5 inches 5'5.50" Weight 231.00 lb Heart Rate 85 /min BP Systolic Sitting 152 mmHg BP Diastolic Sitting 86 mmHg Body Temperature 98.9 F O2 % BldC Oximetry 98 % BMI (Body Mass Index) 37.9 kg/m2 09/26/2017 Height 65.5 inches 5'5.50" Weight 225.25 [...] Result H/L Range Note Laboratory test finding 10/19/2017 Lactic Acid 1.2 mmol/L 0.5-2.0 1 CBC Auto Diff 10/19/2017 White Blood Count 7.6 10^3/uL 3.5-10.8 Red Blood Count 4.96 10^6/uL 4.00-5.40 Hemoglobin 14.3 g/dL 12.0-16.0 Hematocrit 41 % 35-47 Mean Corpuscular Volume 83 fL 80-97 Mean Corpuscular Hemoglobin 29 pg 27-31 Mean Corpuscular HGB Conc 35 g/dL 31-36 Red Cell Distribution Width 13 % 10.5-15 Platelet Count 272 10^3/uL 150-450 Mean Platelet Volume 8.6 um3 7.4-10.4 Abs Neutrophils 5.1 10^3/uL 1.5-7.7 Abs Lymphocytes 1.8 10^3/uL 1.0-4.8 Abs Monocytes 0.5 10^3/uL 0-0.8 Abs Eosinophils 0.1 10^3/uL 0-0.6 Abs Basophils 0.1 10^3/uL 0-0.2 Abs Nucleated RBC 0 10^3/uL Granulocyte % 66.7 % 38-83 Lymphocyte % 23.3 % Low 25-47 Monocyte % 7.2 % High 0-7 Eosinophil % 1.7 % 0-6 Basophil % 1.1 % 0-2 Nucleated Red Blood Cells % 0.1 Inr/Protime 10/19/2017 Inr 0.86 0.77-1.02 Laboratory test finding 10/19/2017 Partial Thrombo Time 26.5 seconds 26.0 -36.3 PTT Type & Screen 10/19/2017 Patient Blood Type A Positive Antibody Screen NEGATIVE Comp Metabolic Panel 10/19/2017 Sodium 134 mmol/L Low 135-145 Potassium 4.1 mmol/L 3.5-5.0 Chloride 99 mmol/L Low 101-111 Co2 Carbon Dioxide 26 mmol/L 22-32 Anion Gap 9 mmol/L 2-11 Glucose 236 mg/dL High 70-100 Blood Urea Nitrogen 23 mg/dL 6-24 Creatinine 1.17 mg/dL High 0.51-0.95 BUN/Creatinine Ratio 19.7 8-20 Calcium 9.0 mg/dL 8.6-10.3 Total Protein 6.9 g/dL 6.4-8.9 Albumin 3.3 g/dL 3.2-5.2 Globulin 3.6 g/dL 2-4 Albumin/Globulin Ratio 0.9 Low 1-3 Total Bilirubin 0.50 mg/dL 0.2-1.0 Alkaline Phosphatase 47 U/L 34-104 Alt 9 U/L 7-52 Ast 13 U/L 13-39 Egfr Non- 48.2 >60 Egfr 58.3 >60 2 Lipid Profile (Trig/Chol/HDL) 10/19/2017 Triglycerides 216 mg/dL 3 Cholesterol 314 mg/dL 4 HDL Cholesterol 45.2 mg/dL 5 LDL Cholesterol 226 mg/dL 6 Laboratory test finding 10/19/2017 Troponin-I (TnI) 0.00 ng/mL <0.04 Urinalysis Profile 10/19/2017 Urine Color Yellow Urine Appearance Cloudy Urine Specific [place] 1.027 1.010-1.030 Urine pH 5.0 5-9 Urine Urobilinogen Negative Negative Urine Ketones Negative Negative Urine Protein 3+(>=500 mg/dL) Negative Urine Leukocytes Negative Negative Urine Blood 1+ Negative Urine Nitrite Negative Negative Urine Bilirubin Negative Negative Urine Glucose 2+(150 mg/dL) Negative Urine White Blood Cell Trace(0-5/hpf) Absent Urine Red Blood Cell Trace(0-2/hpf) Absent Urine Bacteria Absent Absent Urine Squamous Epithelial Cell Present Absent Urine Culture And 10/19/2017 Urine Culture SEE RESULT BELOW 7 Sensitivities Laboratory test finding 10/18/2017 Point of Care 292 mg/dL High 70-100 8 Glucose Laboratory test finding 10/18/2017 Point of Care 319 mg/dL High 70-100 9 Glucose Laboratory test finding 10/18/2017 Point of Care 327 mg/dL High 70-100 10 Glucose Basic Metabolic Panel 09/26/2017 Sodium 135 mmol/L 135-145 Potassium 4.3 mmol/L 3.5-5.0 Chloride 98 mmol/L Low 101-111 Co2 Carbon Dioxide 29 mmol/L 22-32 Anion Gap 8 mmol/L 2-11 Glucose 251 mg/dL High 70-100 Blood Urea Nitrogen 22 mg/dL 6-24 Creatinine 1.18 mg/dL High 0.51-0.95 BUN/Creatinine Ratio 18.6 8-20 Calcium 8.9 mg/dL 8.6-10.3 Egfr Non- 47.7 >60 Egfr 57.8 >60 11 Urine Microalbumin Random 09/26/2017 Urine Creatinine 230.73 mg/dL Ur Microalbumin (mg/L) 46993.0 mg/L Urine Microalbumin/Creatinine 4460.6 ug/mg High <31 Lipid Profile (Trig/Chol/HDL) 09/26/2017 Triglycerides 260 mg/dL 12 Cholesterol 336 mg/dL 13 HDL Cholesterol 45.0 mg/dL 14 LDL Cholesterol 239 mg/dL 15 Laboratory test 09/26/2017 Hemoglobin A1c (Glyco 14.0 % High 4.0-5.6 16 finding HGB) CBC Auto Diff 10/29/2016 White Blood Count [...] finding 10/29/2016 Lactic Acid 1.4 mmol/L 0.5-2.0 17 Urinalysis Profile 10/29/2016 Urine Color Yellow Urine Appearance Cloudy Urine Specific [place] 1.025 1.010-1.030 Urine pH 5.0 5-9 Urine [...] Egfr Non- 48.9 >60 Egfr 62.8 >60 18 Laboratory test finding 10/29/2016 Troponin-I (TnI) 0.01 ng/mL <0.04 Inr/Protime 10/29/2016 Inr 0.93 0.89-1.11 Laboratory test finding 10/29/2016 Partial Thrombo Time 28.7 seconds 26.0 -36.3 PTT Blood Culture SEE RESULT BELOW 19 Laboratory test 04/07/2016 Hemoglobin A1c >14.0 High 5-7 finding Laboratory test 06/26/2015 Hemoglobin A1c (Glyco 9.5 % High Less than 20 finding HGB) 6.0 Urine Microalbumin 06/26/2015 Ur Microalbumin 1512.5 mg/L Random (mg/L) Urine Creatinine 74.15 mg/dL Urine Microalbumin/Creatinine 2039.7 ug/mg High <31 Lipid Profile (Trig/Chol/HDL) 06/26/2015 Triglycerides 166 mg/dL 21 Cholesterol 256 mg/dL 22 HDL Cholesterol 48.3 mg/dL 23 LDL Cholesterol 175 mg/dL 24 Comp Metabolic Panel 06/26/2015 Sodium 136 mmol/L [...] Egfr Non- 63.3 >60 Egfr 81.4 >60 25 Urine Microalbumin Random 03/17/2015 Urine Creatinine 67.38 [...] Egfr Non- 51.5 >60 Egfr 66.2 >60 26 Creatinine Clearance 10/22/2013 Urine Random Creatinine 48.89 mg/dL Creatinine 1.12 mg/dL High 0.51-0.95 Creatinine Clearance 68 mL/min Low 88-128 Urine Collection Time 24 Urine Total Volume 2250 mL Total Protein 24HR Urine 10/22/2013 Urine Random Total Protein 103 mg/dL Urine Total Protein/24HR 2317 mg/24Hr High 0-165 Urine Collection Time 24 Urine Total Volume 2250 mL Lipid Profile (Trig/Chol/HDL) 09/11/2013 Triglycerides 256 mg/dL 27, 28 Cholesterol 294 mg/dL 27, 29 HDL Cholesterol 42.1 mg/dL 27, 30 LDL Cholesterol 201 mg/dL 27, 31 Urine Microalbumin Random 09/11/2013 Ur Microalbumin (mg/L) 1500.0 mg/dL <30 27, 32 Urine Creatinine 152.94 mg/dL 27 Urine Microalbumin/Creatinine 980.7 High Less Than 31 27 Laboratory test 09/11/2013 Hemoglobin A1c 13.4 % High Less than 6.0 27, 33 finding Laboratory test 02/02/2012 Hemoglobin A1c 7.0 5-7 finding Basic Metabolic Panel 10/26/2011 Sodium 135 mmol/L 135-145 Potassium 4.3 mmol/L 3.5-5.0 Chloride 98 mmol/L Low 101-111 Co2 (Carbon Dioxide) 30.0 mmol/L 22-32 Anion Gap 7.0 mmol/L 2-11 34 Glucose 147 mg/dL High 70-100 BUN 9 mg/dL 6-24 Creatinine 0.7 mg/dL 0.50-1.40 One Over Creatinine 1.42 BUN/Creatinine Ratio 12.9 8-20 Calcium 8.9 mg/dL 8.1-9.9 eGFR Non- 89.3 > 60 eGFR 114.9 > 60 35 CBC With Manual Diff 10/26/2011 White Blood [...] finding 10/26/2011 Hemoglobin A1c 7.4 High 5-7 Lipid Profile (Trig/Chol/HDL) 10/26/2011 Triglyceride 130 mg/dL 40-200 Cholesterol 238 mg/dL High Less Than 200 36 High Density Lipoprotein 47 mg/dL 40-60 37 Cholesterol/HDL Ratio 5.06 AVERAGE High 1-4.44 Low Density Lipoprotein 165 mg/dL High Less Than 100 38 (HCG) Urine 06/25/2011 Specific [place] 1.023 1.010-1.030 Urine NEGATIVE Negative 39 Laboratory test finding 06/24/2011 Hemoglobin A1c 6.9 5-7 Lipid Profile (Trig/Chol/HDL) 05/07/2011 Triglyceride 153 mg/dL 40-200 Cholesterol 271 mg/dL High Less Than 200 40 High Density Lipoprotein 48 mg/dL 40-60 41 Cholesterol/HDL Ratio 5.65 AVERAGE High 1-4.44 Low Density Lipoprotein 192 mg/dL High Less Than 100 42 Comp Metabolic Panel 05/07/2011 Sodium 138 mmol/L 135-145 Potassium 4.0 mmol/L 3.5-5.0 Chloride 101 mmol/L 101-111 Co2 (Carbon Dioxide) 29.0 mmol/L 22-32 Anion Gap 8.0 mmol/L 2-11 43 Glucose 138 mg/dL High 70-100 BUN 8 mg/dL 6-24 Creatinine 0.6 mg/dL 0.50-1.40 One Over Creatinine 1.66 BUN/Creatinine Ratio 13.3 8-20 Calcium 8.8 mg/dL 8.1-9.9 Total Protein 6.6 GM/DL 6.2-8.1 Albumin 3.6 GM/DL 3.6-5.4 Globulin 3.0 GM/DL 2-4 Albumin/Globulin Ratio 1.2 1-3 Bilirubin Total 0.8 mg/dL 0.4-1.5 44 Alkaline Phosphatase 46 U/L 30-110 Alt (SGPT) 19 U/L 14-54 Ast (Sgot) 17 U/L 12-42 eGFR Non- 106.7 > 60 eGFR 137.2 > 60 45 Urine Microalbumin Random 05/07/2011 Microalbumin (MG/L) 1661.0 mg/L Urine Creatinine 110.3 mg/dL Cornel Alb/Creatinine Ratio 1505.9 UG/MG High Less Than 30 46 Laboratory test finding 05/07/2011 C Reactive Protein 1.4 mg/dL High Less Than 0.5 Erythrocyte Sed Rate 49 MM/HR High 0-15 Laboratory test finding 04/26/2011 BUN 17 mg/dL 6-24 Creatinine 04/26/2011 Creatinine 1.0 mg/dL 0.50-1.40 One Over Creatinine 1.00 eGFR Non- 59.2 > 60 eGFR 76.1 > 60 47 Culture And 03/27/2011 M <SEE 48 Sensitivity NOTE> Laboratory test 03/25/2011 Hemoglobin A1c 6.9 5-7 finding Laboratory test 12/09/2010 Hemoglobin A1c 7.7 High 5-7 finding Laboratory test 10/28/2010 Hemoglobin A1c 9.2 High 5-7 finding Urine Microalbumin 05/04/2010 Microalbumin (MG/L) 841.0 mg/L Random Urine Creatinine 206.77 mg/dL Cornel Alb/Creatinine Ratio 406.7 UG/MG High Less Than 30 49 Comp Metabolic Panel 05/04/2010 Sodium 135 mmol/L 135-145 Potassium 5.0 mmol/L 3.5-5.0 Chloride 99 mmol/L Low 101-111 Co2 (Carbon Dioxide) 29.0 mmol/L 22-32 Anion Gap 7.0 mmol/L 2-11 50 Glucose 276 mg/dL High 70-100 BUN 9 mg/dL 6-24 Creatinine 0.60 mg/dL 0.50-1.40 One Over Creatinine 1.60 BUN/Creatinine Ratio 15.0 8-20 Calcium 8.8 mg/dL 8.1-9.9 Total Protein 6.2 GM/DL 6.2-8.1 Albumin 3.3 GM/DL Low 3.6-5.4 Globulin 2.9 GM/DL 2-4 Albumin/Globulin Ratio 1.1 1-3 Bilirubin Total 0.7 mg/dL 0.4-1.5 51 Alkaline Phosphatase 54 U/L 30-110 Alt (SGPT) 17 U/L 14-54 Ast (Sgot) 17 U/L 12-42 eGFR Non- 107.2 > 60 eGFR 137.8 > 60 52 Lipid Profile (Trig/Chol/HDL) 05/04/2010 Triglyceride 187 mg/dL 40-200 Cholesterol 266 mg/dL High Less Than 200 53 High Density Lipoprotein 47 mg/dL 40-60 54 Cholesterol/HDL Ratio 5.66 AVERAGE High 1-4.44 Low Density Lipoprotein 182 mg/dL High Less Than 100 55 Laboratory test finding 05/01/2010 Hemoglobin A1c 11.4 High 5-7 1 [facility] Severe Sepsis and Septic Shock Management Bundle [...] 5 Kidney failure <15 (or dialysis) 3 Desirable: <150 Borderline High: 150-199 High: 200-499 Very High: >500 4 Desirable: <200 Borderline High: 200-239 High: >239 5 Low: <40 Desirable: 40-60 High: >60 6 Desirable: <100 Near Optimal: 100-129 Borderline High: 130-159 High: 160-189 Very High: >189 7 SEE RESULT BELOW Name: MICHELLE EAGLE : [address]: Koby Jorge MD Acct: [id number] Unit: [id number] AGE: 52 Location: [place] [address] Re10/19/17 Dis: 10/20/17 SEX: F Status: DIS Ayla SPEC: [id number] JAUN: 10/19/17 [facility] [address]: Inocente Mello MD REQ: [id number] RECD: 10/19/17 STATUS: CINDY ALICIA DR: Prakash Barclay MD _ SOURCE: URINE SPDESC: ORDERED: Urine Culture Procedure Result Reported Site Urine Culture Final 10/21/17- 1020 ML Mixed cristina; possible contamination. Suggest resubmission. * ML - Main Lab . END OF REPORT DEPARTMENT OF PATHOLOGY, [address] [place] [address] Angus Rubi M.D. Director [facility] # [id number] Dental Laboratory Worker: [id number] 9 Dental Laboratory Worker: [id number] Dental Laboratory Worker: [id number] 11 Because ethnic data is not always readily [...] 15-29 5 Kidney failure <15 (or dialysis) 12 Desirable: <150 Borderline High: 150-199 High: 200-499 Very High: >500 13 Desirable: <200 Borderline High: 200-239 High: >239 14 Low: <40 Desirable: 40-60 High: >60 15 Desirable: <100 Near Optimal: 100-129 Borderline High: 130-159 High: 160-189 Very High: >189 16 Therapeutic target for the treatment of diabetes mellitus patients is <7% HBA1C, and in selective patients <6.0%. Please refer to [place] [employer] diabetic care guidelines for further information. 17 [facility] Severe Sepsis and Septic Shock Management Bundle Measure requires all lactic acids initially measuring >2.0 mmol/L be repeated. 18 Because ethnic data is not always readily [...] 15-29 5 Kidney failure <15 (or dialysis) 19 SEE RESULT BELOW Name: MICHELLE EAGLE : [address]: Eleni Salcedo MD Acct: [id number] Unit: [id number] AGE: 51 Location: ED Re10/29/16 SEX: F Status: DEP ER SPEC: [id number] JAUN: 10/29/16-1453 [facility] [address]: Jim Collins MD REQ: [id number] RECD: 10/29/16 STATUS: CINDY ALICIA DR: [facility] Prakash Barclay MD _ SOURCE: BLOOD,VENO SPDESC: ORDERED: Blood Cult COMMENTS: ONLY AEROBIC BOTTLE COLLECTED Procedure Result Reported Site Aerobic Culture Bottle Final 11/03/16- 150 ML No Growth Day 5 * ML - MAIN LAB (PSC1) . END OF REPORT * ML=Testing performed at Main Lab DEPARTMENT OF PATHOLOGY, [address] [place] [address] Angus Rubi M.D. Director [facility] # [id number] 20 Therapeutic target for the treatment of diabetes Mellitus patients is <7% HBA1C, and in selective patients <6.0%.Please refer to [place] [employer] Diabetic care guidelines for further information. 21 Desirable <150 Borderline high 150-199 High 200-499 Very High >500 22 Desirable <200 Borderline high 200-239 High >239 23 Low <40 Desirable: 40-60 High: >60 24 Desirable: <100 mg/dL Near Optimal: 100-129 mg/dL Borderline High: 130-159 mg/dL High: 160-189 mg/dL Very High: >189 mg/dL 25 Because ethnic data is not always readily [...] 15-29 5 Kidney failure <15 (or dialysis) 26 Because ethnic data is not always readily [...] 15-29 5 Kidney failure <15 (or dialysis) 27 FASTING 28 Desirable <150 Borderline high 150-199 High 200-499 Very High >500 29 Desirable <200 Borderline high 200-239 High >239 30 Low <40 Desirable: 40-60 High: >60 31 Desirable <100 Near Optimal 100-129 Borderline high 130-159 High 160-189 Very High >189 32 --- 09/11/13 1233 --- UR Microalbumin previously reported as: 1500.0 mg/dL Microalbuminuria in a random sample is defined as: Microalbumin/Creatinine ratio of 30-299 ug/mg. 33 Therapeutic target for the treatment of diabetes Mellitus patients is <7% HBA1C, and in selective patients <6.0%.Please refer to [place] [employer] Diabetic care guidelines for further information. 34 Anion gap measurement may be of limited value in the presence of any alkalosis, especially in a combined acid base disorder. . 35 Because ethnic data is not always readily [...] 15-29 5 Kidney failure <15 (or dialysis) 36 CHOLESTEROL INTERPRETATION: Desirable: Less than 200 MG/DL Borderline-High Risk: 200-239 MG/DL High-Risk: 240 MG/DL and over 37 HDL INTERPRETATION: Undesirable: High Risk: Less than 40 MG/DL Desirable: Low Risk: Greater than 60 MG/DL 38 LDL INTERPRETATION: Low Risk Optimal Level: LDL Less than 100 MG/DL Near or Above Optimal: LDL 100-129 MG/DL Borderline High Risk: LDL 130-159 MG/DL High Risk: LDL 160-189 MG/DL Very High Risk: LDL Greater than 189 MG/DL 39 If is still suspected, please repeat test after 48 to 72 hours. . This test detects intact HCG only and is indicated for the early detection of . 40 CHOLESTEROL INTERPRETATION: Desirable: Less than 200 MG/DL Borderline-High Risk: 200-239 MG/DL High-Risk: 240 MG/DL and over 41 HDL INTERPRETATION: Undesirable: High Risk: Less than 40 MG/DL Desirable: Low Risk: Greater than 60 MG/DL 42 LDL INTERPRETATION: Low Risk Optimal Level: LDL Less than 100 MG/DL Near or Above Optimal: LDL 100-129 MG/DL Borderline High Risk: LDL 130-159 MG/DL High Risk: LDL 160-189 MG/DL Very High Risk: LDL Greater than 189 MG/DL 43 Anion gap measurement may be of limited value in the presence of any alkalosis, especially in a combined acid base disorder. . 44 A metabolite of Naproxen, O-desmethylnaproxen, has been shown to interfere with the [place] method for measuring total bilirubin. Samples from patients who have taken Naproxen have shown spurious elevation in total bilirubin levels. 45 Because ethnic data is not always readily [...] 15-29 5 Kidney failure <15 (or dialysis) 46 MICROALBUMINURIA IN A RANDOM SAMPLE IS DEFINED : MICROALBUMIN/CREATININE RATIO OF 30-299 ug/mg. . 47 Because ethnic data is not always readily [...] 15-29 5 Kidney failure <15 (or dialysis) 48 RUN DATE: 04/01/11 [facility] NMI LIVE PAGE 1 RUN TIME: 821 Specimen Inquiry RUN USER: INTERFACE Name: EFRAIN EAGLENAVJOT Banerjee Accnorth#: [id number] Status: REG REF Re03/27/11 Age/Sex: 46/F Unit#: [id number] Location: [facility]. : [birth year] SPEC #: [id number] JAUN: 03/27/11 STATUS: CINDY LAGUNA #: [id number] RECD: 03/27/[address] [facility] [address]: Jadyn LITTLE,Rose Isidro SOURCE: MISC ENTR: 03/27/11 [facility] DR: Deny AL,Izaiah Noble SPDESC: TOE,LEFT ORDERED: CULT SENS/GS COMMENTS: SPECIMEN SOURCE: ULCER LEFT HALLUX ACT WKST: B 04/01/11 #2 Procedure Result Verified Site > CULTURE SENSITIVITY Final 04/01/11- 0822 ML Organism 1 STREPTOCOCCUS AGALACTIAE-GR B QUANTITY [...] S +IMIPENEM S DEPARTMENT OF PATHOLOGY, [address] [place] [address] [facility] Permit #[id number] Scooter Pandey M.D. Garage Door Technician RUN DATE: 04/01/11 [facility] NMI LIVE PAGE 2 RUN TIME: 821 Specimen Inquiry RUN USER: INTERFACE Name: MICHELLE EAGLE Status: REG REF Re03/27/11 Age/Sex: 46/F Unit#: [id number] [facility] [facility] : 61 -- -- CONTINU ED Procedure Result Verified Site CULTURE SENSITIVITY Final (continued) 04/01/11- 821 1. STREPTOCOCCUS AGALACTIAE-GR B (continued) RX M.I.C. ------ --------- +CEFAZOLIN S +These results are deduced according to CLSI guidelines as they are related to tested antimicrobials with almost identical spectrum of activity. *These antibiotics are not available in the [facility] Formulary. Contact the Microbiology Department for any additional antibiotic reporting. > GRAM STAIN SMEAR Final 03/28/11- 729 ML POLYS NONE SMEAR: MANY EPITHELIAL CELLS MANY GRAM POSITIVE COCCI MANY GRAM NEGATIVE BACILLI MOD GRAM POSITIVE BACILLI INTERPRET CULTURE RESULTS WITH CAUTION. NUMEROUS EPITHELIAL CELLS OBSERVED ON GRAM STAIN, WHICH MAY INDICATE SURFACE CONTAMINATION. [facility] Permit #[id number] [facility] [place] [address] DEPARTMENT OF PATHOLOGY, [facility] invino [place] [address] [facility] Permit #[id number] Angus Rubi M.D. Director Noy Cordero M.D. Garage Door Technician 49 MICROALBUMINURIA IN A RANDOM SAMPLE IS DEFINED : MICROALBUMIN/CREATININE RATIO OF 30-299 ug/mg. . 50 Anion gap measurement may be of limited value in the presence of any alkalosis, especially in a combined acid base disorder. . 51 A metabolite of Naproxen, O-desmethylnaproxen, has been shown to interfere with the Jentonny-Krystal method for measuring total bilirubin. Samples from patients who have taken Naproxen have shown spurious elevation in total bilirubin levels. 52 Because ethnic data is not always readily [...] 15-29 5 Kidney failure <15 (or dialysis) 53 CHOLESTEROL INTERPRETATION: Desirable: Less than 200 MG/DL Borderline-High Risk: 200-239 MG/DL High-Risk: 240 MG/DL and over 54 HDL INTERPRETATION: Undesirable: High Risk: Less than 40 MG/DL Desirable: Low Risk: Greater than 60 MG/DL 55 LDL INTERPRETATION: Low Risk Optimal Level: LDL Less than 100 MG/DL Near or Above Optimal: LDL 100-129 MG/DL Borderline High Risk: LDL 130-159 MG/DL High Risk: LDL 160-189 MG/DL Very High Risk: LDL Greater than 189 MG/DL Procedures Date CPT Code Description Status 10/06/2017 Diabetic Retinal Eye Exam Completed 09/01/2017 Diabetic Retinal Eye Exam Completed 11/29/2016 Diabetic Retinal Eye Exam Completed 06/11/2015 Diabetic Retinal Eye Exam Completed 06/15/2011 Diabetic Foot Exam Completed 04/01/2011 Diabetic Foot Exam Completed Encounters Type Date Location Provider CPT E/M Dx Office Visit 10/20/2017 [place] Mariusz Diamond,khai Jorge, 18436 G45.9 3:34p Hospitalists M.Real Office Visit 10/19/2017 [place] Mariusz Diamond,khai Prabhakar, 46893 G45.9 3:33p Hospitalists N.P. Office Visit 09/26/2017 [facility] [place] [address] Z01.818 10:00a Marie H26.9 E11.40 I10 Office Visit 04/07/2016 2:40p [facility] Internal Prakash Barclay, [address] S82.002D Medicine - [address] M.DJorge,FACP E11.40 Office Visit 03/17/2015 2:30p [facility] Internal Medicine - Kei Chun, BULLET ASSEMBLY PRESS SETTER OPERATOR [address] I15.2 E11.331 E11.22 E78.2 Office Visit 03/07/2014 8:50a [facility] Internal Medicine Prakash Barclay, 94[address] 250.02 - Marie Helms,FACP 362.02 Office Visit 12/06/2013 9:30a [facility] Internal Medicine Prakash Barclay, 70596 250.62 - Marie Helms,FACP 250.42 Office Visit 10/26/2013 9:40a [facility] Internal Medicine Prakash Barclay, 35956 250.42 - Marie Helms,FACP Office Visit 09/14/2013 2:40p [facility] Internal Medicine Prakash Barclay, 20606 250.62 - Marie Helms,FACP 362.02 Office Visit 02/02/2012 2:40p [facility] Internal Medicine Prakash Barclay, 42525 250.02 - Marie Helms,FACP 686.1 Office Visit 10/26/2011 9:00a [facility] Internal Medicine Richelle Casanova, N.P. [address] 782.3 - [place] 250.02 V76.10 Office Visit 06/24/2011 10:30a [facility] Internal Medicine Prakash Barclay, 15236 V72.81 - Marie Helms,FACP 727.1 250.02 272.2 Office Visit 05/06/2011 3:40p [facility] Internal Medicine Prakash Barclay, 70956 730.17 - Marie Helms,FACP 250.02 Office Visit 04/06/2011 1:45p [facility] Internal Medicine Michelle Justin M.D. 39223 681.9 - [place] 707.15 Office Visit 04/01/2011 2:00p [facility] Internal Medicine Michelle Justin 72711 681.9 - Marie Helms Office Visit 03/25/2011 9:10a [facility] Internal Medicine [facility] [address] 250.02 - Marie Helms,FACP 707.15 Office Visit 01/01/2011 12:00p DO Not Use Land Leases And Rentals Manager AT [facility], [address] 723.1 Lori M.D.,FACP Office Visit 12/09/2010 11:10a DO Not Use Land Leases And Rentals Manager AT [facility], [address] 250.02 [place] M.D.,FACP 272.2 Office Visit 10/28/2010 1:45p DO Not Use Land Leases And Rentals Manager AT [facility], [address]11 368.9 [facility] M.D.,FACP 250.62 Office Visit 07/29/2010 4:00p DO Not Use Land Leases And Rentals Manager AT [facility], 31988 250.62 [facility] M.D.,FACP 357.2 Office Visit 06/16/2010 9:40a DO Not Use Land Leases And Rentals Manager AT [facility], [address]58 250.62 [facility] M.D.,FACP 362.02 272.0 Office Visit 05/14/2010 10:40a DO Not Use Land Leases And Rentals Manager AT [facility], [address] 250.62 [facility] M.D.,FACP Office Visit 05/01/2010 3:20p DO Not Use Land Leases And Rentals Manager AT [facility], 68366 250.02 [facility] M.D.,FACP V77.1 707.15 Plan of Care Future Appointment(s):02/07/2018 11:20 am - Prakash Barclay M.D.,FACP at [facility] Internal Medicine - Tyohlzgvn72/20/2018 10:40 am - Zack Parks NP at [facility] Internal Medicine - Lyjvjjibd06/09/2018 - Zack Parks NPE11.40 Type 2 diabetes mellitus with diabetic neuropathy, unspNew Medication:Metformin HCL 1000 mgComments:Continue taking the 20 untis of ELvemir. Take this at night. If your morning fasting blood sugars are running higher than 150 let me know. I have added the metformin. Start this tomorrow.Follow up:[address] MeadRecommendations:See your certified ophthalmic medical technician every year. It is OK to go every 2 years if he finds no retinal damage from diabetes. Ask your certified ophthalmic medical technician to communicate his findings to us. See a metals analyst every 6 months if you have numbness in your feet or a history of foot ulcers.Goals:Goal Hemoglobin A1c is less than 7.0%. Goal Blood pressure is less than 130/85.I10 Essential (primary ) hypertensionNew Medication:Blood Pressure Monitor Auto InflateComments: Continue taking the Losartan daily. Continue checking your blood pressure daily. If it is running higher than 135/85 (either number) please let us know.E78.2 Mixed hyperlipidemiaComments:Continue taking the Atorvastatin.G45.9 Transient cerebral ischemic attack, unspecifiedReferral:Pedro Khan MD, NeurologyFollow up:6 week f/u
--- NOTE | 2017-11-16 07:56 | ED ---
Neurological HPI - HPI Summary HPI Summary: Pt is a 52 y /o female BIBA who presents to the ED c/o weakness. She states symptoms began at 5:00, and include weakness and numbness of her mouth, dizziness, burning and tingling sensations of the back of her neck, headache, and spotty vision. Pt also describes an intermittent pumping sound in the back of her head. She denies any ear ache, sore throat, CP, SOB, abdominal pain , hematuria, hematochezia, rash, bruises, or back pain. Symptoms are now completely resolved. Pt had a TIA 3 weeks ago which presented with weakness and numbness across her face, and is currently on blood thinners for plaque build- up in her basal artery. As per family, she has had dizzy spells the past few weeks since her recent TIA. PMHx DM and HTN. - History of Current Complaint Chief Complaint: EDWeakness Stated Complaint: WEAKNESS Hx Obtained From: Patient, Family/Poultry Cutter Hx Last Menstrual Period: 04/03/17 Onset/Duration: Sudden Onset, Started hours ago - 5:00, Resolved Current Severity: None Neurological Deficit Location: Generalized, Facial Pain Intensity: 0 Pain Scale Used: 0-10 Numeric Character: Dizzy, Numbness/Tingling, Paresthesia, Visual Changes Aggravating: Hypertension, Medication Change - Recent blood thinners Alleviating: Spontanious Resolution Associated Signs and Symptoms: Positive: Visual Changes, Headache, Dizziness. Negative: Chest Pain, Shortness of Breath Related Hx: Recent Illness - TIA - Allergy/Home Medications Allergies/Adverse Reactions: Allergies Allergy/AdvReac Type Severity Reaction Status Date / Time Penicillins Allergy Rash Verified 10/18/17 12:10 pregabalin Allergy Swelling Verified 10/18/17 12:10 PMH/Surg Hx/FS Hx/Imm Hx Endocrine/Hematology History: Reports: Hx Diabetes - TYPE 2 ON INSULIN Denies: Hx Anticoagulant Therapy, Hx Blood Disorders Cardiovascular History: Reports: Hx Hypertension - ON MEDS Denies: Hx Pacemaker/ICD Musculoskeletal History: Denies: Hx Arthritis Sensory History: Reports: Hx Cataracts, Hx Glaucoma Denies: Hx Contacts or Glasses - not with, Hx Hearing Aid Opthamlomology History: Reports: Hx Cataracts, Hx Glaucoma Denies: Hx Contacts or Glasses - not with Neurological History: Reports: Hx Transient Ischemic Attacks (TIA), Other Neuro Impairments/Disorders - Neuropathy both feet, CONSTANT PAIN Psychiatric History: Denies: Hx Anxiety - VERY ANXIOUS R/T MEDICAL SITUATION (VISION LIMITED), Hx Depression, Hx Panic Disorder - Surgical History Surgery Procedure, Year, and Place: 2012 L foot surgery [facility]. 1997 L knee surgery TUMOR REMOVED ABURN. cataract surgery 10/18/17 Hx Anesthesia Reactions: No Infectious Disease History: No Infectious Disease History: Denies: Traveled Outside the [place] in Last 30 Days - Family History Known Family History: Positive: Diabetes - Social History Alcohol Use: None Hx Substance Use: No Substance Use Type: Reports: None Hx Tobacco Use: Yes Smoking Status (MU): Former Smoker Type: Cigarettes Amount Used/How Often: FEW CIGS/DAYS Length of Time of Smoking/Using Tobacco: FEW YEARS YOUNG ADULT Have You Smoked in the Last Year: No Review of Systems Eyes: Other - Spotty vision Negative: Sore Throat, Ear Ache Negative: Chest Pain Negative: Shortness Of Breath Negative: Abdominal Pain, Other - Hematochezia Negative: hematuria Negative: Myalgia - Back pain Negative: Rash, Bruising Neurological: Other - Burning sensation, dizziness Positive: Headache, Weakness, Paresthesia, Numbness All Other Systems Reviewed And Are Negative: No Physical Exam - Summary Physical Exam Summary: Appearance: Alert, conversive, nontoxic appearing Skin: Warm, dry, no mottling, no rashes, no contusions HEENT: EOMI, PERRL, moist mucous membranes Neck: No masses on the neck, supple Respiratory: Clear to auscultation, breath sounds present, no rales, no rhonchi , no wheezes Cardiovascular: RRR, pulses are symmetrical in both lower and upper extremities Abdomen: Soft, non-tender Bowel Sounds: Present Musculoskeletal: No CVA tenderness, no obvious deformity, moving all extremities in a grossly normal manner Neurological: A&Ox3, CN II-XII Intact, moving all extremities symmetrically Psychiatric: Normal affect and mood GCS: 15 Triage Information Reviewed: Yes Vital Signs On Initial Exam: Initial Vitals Pulse Resp BP Pulse Ox 93 15 195/95 96 11/16/17 06:37 11/16/17 06:37 11/16/17 06:37 11/16/17 06:37 Vital Signs Reviewed: Yes Diagnostics - Vital Signs Vital Signs Temp Pulse Resp BP Pulse Ox 11/16/17 07:23 76 17 165/89 92 11/16/17 07:07 73 16 176/91 93 11/16/17 07:00 83 12 94 11/16/17 06:39 98 F 101 16 195/95 95 11/16/17 06:37 93 15 195/95 96 - Laboratory Result Diagrams: 11/16/17 07:56 11/16/17 07:56 Lab Statement: Any lab studies that have been ordered have been reviewed, and results considered in the medical decision making process. - CT Brain CT CT Interpretation: No Acute Changes - No acute intracranial process evident. Mild cerebellar atrophy and subtle stigmata of probable chronic small vessel ischemic disease. ED physician reviewed radiology report. CT Interpretation Completed By: Radiologist - EKG 07:51 Cardiac Rate: NL - 69 bpm EKG Rhythm: Sinus Rhythm EKG Interpretation: Nl QRS, nl QTc, nl axis Re-Evaluation - Re-Evaluation First Eval Re-Evaluation Time: 09:25 Change: Unchanged Comment: When pt was previously admitted for TIA, she had the following radiology studies: brain MRI was negative and revealed no acute stroke, carotid US revealed good flow, and a transthoracic echocardiogram revealed no PFO, EF 60 %, and no significant abnormalities. Pt is not the most compliant with taking her BP medications, and did not take them this morning. Will education the patient and emphasize the importance of taking her medications, and the risk of having a true CVA with long-term neurological deficits. Pt is instructed to follow up with her PCP next week and will follow up with neurology tomorrow. Course/Dx - Course Course Of Treatment: Pt is a 52 y /o female BIBA who presents to the ED c/o weakness and numbness of her mouth, dizziness, burning and tingling sensations of the back of her neck, headache, and spotty vision since 5:00. She denies any ear ache, sore throat, CP, SOB, abdominal pain, hematuria, hematochezia, rash, bruises, or back pain. Symptoms are now completely resolved. Pt had a TIA 3 weeks ago which presented with weakness and numbness across her face, and is currently on blood thinners for plaque build-up in her basal artery. As per family, she has had dizzy spells the past few weeks since her recent TIA. A physical exam revealed a GCS of 15. A brain CT revealed no acute intracranial process. An EKG revealed normal rate of 69 bpm, normal rhythm, normal QRS, normal QTc, and normal axis. It was noted prior to our arrival an EKG was performed, and was normal. Pts labs are fine. When pt was previously admitted for TIA, she had the following radiology studies: brain MRI was negative and revealed no acute stroke, carotid US revealed good flow, and a transthoracic echocardiogram revealed no PFO, EF 60%, and no significant abnormalities. Pt is not the most compliant with taking her BP medications, and did not take them this morning. Upon re-evaluation, educated the patient and emphasized the importance of taking her medications, and the risk of having a true CVA with long-term neurological deficits. Final dx is weakness. Pt is discharged, instructed to follow up with her PCP next week, and will follow up with neurology tomorrow. Pt is agreeable with this plan. - Diagnoses Provider Diagnoses: Weakness Discharge - Sign-Out/Discharge Documenting (check all that apply): Patient Departure - Discharge - Discharge Plan Condition: Stable Disposition: HOME Patient Education Materials: Dizziness (ED) Referrals: Prakash Barclay MD [Primary Care Provider] - 3 Days Additional Instructions: Please keep your follow up appt with your neurologist tomorrow. follow up with your primary care physician next week. It is VERY important that you take all medications including your blood pressure medications as instructed. return if worse or any new symptoms. - Attestation Statements Document Initiated by Scribe: Yes Documenting Scribe: Lu Hernandez Provider For Whom Scribe is Documenting (Include Credential): Ivonne Lucas MD Scribe Attestation: Lu Leiva, scribed for Ivonne Lucas MD on 11/16/17 at 0944.
[2017-11-16 08:10] LABS: ABS Basophils 0.1 10^3/ul (0-0.2); ABS Eosinophils 0.1 10^3/ul (0-0.6); ABS Lymphocytes 1.3 10^3/ul (1.0-4.8); ABS Monocytes 0.6 10^3/ul (0-0.8); ABS Neutrophils 4.9 10^3/ul (1.5-7.7); ABS Nucleated RBC 0 10^3/ul; Eosinophil % 0.9 % (0-6); Hematocrit 38 % (35-47); Hemoglobin 12.9 g/dl (12.0-16.0); Lymphocyte % 18.6 % (25-47); Mean Corpuscular HGB Conc 34 g/dl (31-36); Mean Corpuscular Hemoglobin 29 pg (27-31); Mean Corpuscular Volume 84 fL (80-97); Mean Platelet Volume 7.8 um3 (7.4-10.4); Nucleated Red Blood Cells % 0; Platelet Count 297 10^3/ul (150-450); Red Cell Distribution Width 14 % (10.5-15); White Blood Count 6.9 10^3/ul (3.5-10.8)
--- NOTE | 2017-11-16 08:11 | RAD ---
Indication: Weakness and numbness to mouth at 0500 hours. Now resolved. Comparison: October 19, [address] Technique: Noncontrast CT vertex of skull through foramen magnum. Report: Unremarkable cerebral sulci, ventricles, and basal cisterns. Mild prominence of the cerebellar fissures reflecting atrophy. Negative for soliman matter white matter obscuration, intra or extra-axial hemorrhage, or mass effect. Subtle decreased density in the periventricular and subcortical white matter while non-specific is most likely due to chronic microangiopathy. Unremarkable calvarium and skull base. Clear visualized paranasal sinuses and mastoid air spaces. Unremarkable scalp. IMPRESSION: #. No acute intracranial process evident. #. Mild cerebellar atrophy and subtle stigmata of probable chronic small vessel ischemic disease.
[2017-11-16 08:27] LABS: EGFR Non-African American 56.5 (>60)
[2017-11-16 08:31] LABS: Urine Appearance Clear; Urine Blood 2+ (Negative); Urine Color Straw; Urine Ketones Negative (Negative); Urine Protein 2+(100 mg/dL) (Negative); Urine Red Blood Cell Trace(0-2/hpf) (Absent); Urine Specific Gravity 1.006 (1.010-1.030); Urine Urobilinogen Negative (Negative); Urine White Blood Cell Absent (Absent)
[2017-11-16 11:03] VITALS: BP 191/104
== END 2017-11-16 11:04 | disposition home or self-care (01) ==
LOC: ED 06:32
DX: R53.1 Weakness (principal); R42 Dizziness and giddiness; R51 Headache; H53.9 Unspecified visual disturbance; E11.9 Type 2 diabetes mellitus without complications; Z79.4 Long term (current) use of insulin; I10 Essential (primary) hypertension; Z88.0 Allergy status to penicillin; Z88.8 Allergy status to other drugs, medicaments and biological substances; Z87.891 Personal history of nicotine dependence
CPT/HCPCS: 36415; 70450; 80053; 81003; 81015; 83735; 84443; 84484; 85025; 93005; 99282

== ENCOUNTER 2017-12-20 08:42 | Day surgery (SDC) | payer BC ==
[2017-12-20] MEDS ORDERED: Midazolam* 1 MG/ML 2 ML VIAL (2 MG) ONE (11:15)
[2017-12-20 12:12] VITALS: BP 159/83
[2017-12-20] MEDS ORDERED: Neomycin/Polymy/Dex OPHTH.OIN* 3.5 GM ONE (12:18)
[2017-12-20] MEDS ORDERED: Phenylephrine 2.5% OPTH.SOL* 2 ML BTL ONE (12:18)
[2017-12-20] MEDS ORDERED: Tropicamide 1% OPTH.SOL* BTL ONE (12:18)
[2017-12-20] MEDS ORDERED: Cyclopentolate 1% OPTH.SOL* 2 ML BTL ONE (12:18)
[2017-12-20] MEDS ORDERED: Lidocaine 1%* 5 ML VIAL ONE (12:18)
[2017-12-20] MEDS ORDERED: Tetracaine 0.5% OPTH.SOL 4 ML* 1 DROP BTL ONE (12:18)
[2017-12-20] MEDS ORDERED: Ketorolac 0.5% OPHTH (NF) 0.5 % 5 ML BTL ONE (12:18)
[2017-12-20] MEDS ORDERED: Phenylephr/Ketorolac 1%/0.3% OPH DROP BTL ONE (12:19)
--- NOTE | 2017-12-21 09:28 | OP ---
DATE OF OPERATION: 12/20/17 [facility] DATE OF : 61 SURGEON: Dr. Danny Wallace. HADOOP SOFTWARE ENGINEER: None. ANESTHESIA: Topical with intravenous sedation. PRE-OP DIAGNOSIS: Cataract, right eye. POST-OP DIAGNOSIS: Cataract, right eye. OPERATIVE PROCEDURE: Phacoemulsification and cataract extraction with posterior chamber intraocular lens implant, right eye. COMPLICATIONS: None. BLOOD LOSS: None. DESCRIPTION OF PROCEDURE: The patient was brought to the operating room and received a small amount of intravenous sedation. A drop of Tetracaine was placed in the right eye. The patient was prepped and draped in the usual sterile fashion for ophthalmic surgery and attention was directed to the right eye where a speculum was placed. A paracentesis was created at the 11 o'clock position and 0.1 cc of 1 percent preservative-free Lidocaine was injected into the anterior chamber followed by DisCoVisc. The eye was digitally stabilized while a 2.75 mm keratome was used to create a triplanar clear corneal incision at the 9 o'clock position. A continuous curvilinear capsulorrhexis was created with a cystotome and Utrata forceps. BSS on a cannula was used to hydrodissect the lens from the capsule. Phacoemulsification was performed in a divide-and- conquer technique to create four fragments which were removed. Residual cortical material was removed with irrigation and aspiration. DisCoVisc was used to inflate the capsular bag and an SN60AT AU00T0 24.0 diopter lens was folded and inserted into the capsular bag. DisCoVisc was removed using irrigation and aspiration. BSS on a cannula was used to hydrate the corneal stroma and seal the wound. At the end of the case the pupil was round and the lens was centered. The eye was of normal pressure and the wound was water tight. The speculum was removed and topical Maxitrol ointment was placed on the surface of the eye. The eye was closed, patched and shielded, and the patient was sent to the recovery room in stable condition with post-operative instructions and follow-up appointment given. [id number] #: [id number] MTDD
== END 2017-12-20 12:22 | disposition home or self-care (01) ==
LOC: OREAST 08:42
PROVIDERS: ATTEND Ophthalmology
DX: H25.041 Posterior subcapsular polar age-related cataract, right eye (principal); Z87.891 Personal history of nicotine dependence; Z86.73 Personal history of transient ischemic attack (TIA), and cerebral infarction without residual deficits; Z79.01 Long term (current) use of anticoagulants; N18.2 Chronic kidney disease, stage 2 (mild); E78.2 Mixed hyperlipidemia; E11.40 Type 2 diabetes mellitus with diabetic neuropathy, unspecified; Z79.84 Long term (current) use of oral hypoglycemic drugs
CPT/HCPCS: A9270-GY; C9447; J2250; V2632

== ENCOUNTER 2018-08-20 17:48 | Emergency (ER) | payer BC ==
--- OUTSIDE RECORDS SUMMARY | 2018-08-20 17:53 | XMS REPORT | Continuity of Care Document ---
:1965 External Reference #:[id number] Author Name Miki Marshall Care Team Providers Name Role Phone Zack Parks NP Primary Care Physician Unavailable Payers Date Identification Numbers Payment Provider Subscriber Effective: 2016 Policy Number: [id number] BS Lexi Eagle PayID: [id number] [address] [address] [place] [address] Effective: 2009 Policy Number: [id number] [facility] Expires: 2010 PayID: [id number] [address] [address] [place] [address] Effective: 2010 Policy Number: [id number] BS Lexi Eagle Expires: 2013 PayID: [id number] [address] [address] [place] [address] Onset: 2010 Policy Number: [id number] [place] Michelle Eagle PayID: [id number] Problems Active Problems Provider Date Neurological disorder with type 2 Prakash Barclay M.D.,FACP Onset: 2010 diabetes mellitus Proliferative retinopathy with Prakash Barclay M.D.,FACP Onset: 06/16/2010 diabetes mellitus Type II diabetes mellitus uncontrolled Prakash Barclay M.D.,FACP Onset: Mixed hyperlipidemia Prakash Barclay M.D.,FACP Onset: 12/09/2010 Chronic kidney disease stage 2 Prakash Barclay M.D.,FACP Onset: 10/26/2013 Cerebrovascular accident Onset: Obesity Misbah Alexander M.D. Onset: 06/21/2018 Atherosclerosis of arteries of the Misbah Alexander M.D. 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: Unknown Former Cigarette End: Unknown Smoker 1-5 Cigarettes Daily Cigarette Use Quit - Age 25 ETOH Use 02/21/2018 Rarely consumes alcohol Tobacco Use Start: Unknown Patient is a former End: Unknown smoker Recreational Drug Use Denies Drug Use Smoking Status Reviewed: 08/11/18 Patient is a former smoker Exercise Type/Frequency Exercises sporadically walking sporatically due to foot pain Allergies, Adverse Reactions, Alerts Active Allergies Reaction Severity Comments Date Penicillin rash 05/01/2010 Lyrica swelling 12/06/2017 Metformin funny feeling in mouth, 12/06/2017 Gabapentin mouth swelling 06/21/2018 Inactive Allergies Penicillins Rash 10/18/2017 Medications Active Medications SIG Qnty Indications Ordering Date Provider Triamcinolone apply twice 45gm R21 Zack Parks NP 05/11/2018 Acetonide daily to the 0.5% Cream affected area Unifine Pentips Use Daily 30units Zack Parks NP 04/22/2018 31G X 6 mm Misc Rosuvastatin Calcium 1 po qhs 90tabs Prakash Noble 02/21/2018 Scooter Barclay,FACP 40mg Tablets Tramadol HCL Take One Tablet 28tabs Zack Parks NP 02/21/2018 50mg By Mouth Four Tablets Times A Day as Needed, Maximum Daily Dose=4 Telmisartan-Amlodipin 1 by mouth every 90tabs I10 Zack Parks NP 2017 e morning 40-5mg Tablets Clopidogrel Bisulfate 1 by mouth every 30tabs Zack Parks NP 02/17/2018 day 75mg Tablets Xultophy using 25 units E11.40 Favian Lamar MD 12/06/2017 daily 100-3.6Unit-mg/ML Solution Pen-Inject Blood Pressure check bp twice 1units I10 Zack Parks NP 10/27/2017 Monitor Auto weekly at home Inflate Misc Freestyle Lite Test Use To Check 100units Prakash D. 10/21/2017 Blood Sugar Four Scooter Barclay,ALEJANDROP Strip Times A Day And as Needed Freestyle Lancets check bs 4 times 100units Prakash Noble 10/21/2017 Misc daily and as Scooter Barclay,ANNY needed Freestyle System check BS 2 times 1units Prakash Noble 10/21/2017 Kit daily and as Scooter Barclay,ANNY needed Sure Comfort 31G Pen Use Once Daily 100units Prakash Noble 08/23/2014 Needle Scooter Barclay,FACP Vitamin B-12 once daily Unknown 01/14/2014 500mcg Tablets T.E.D. Anti-Embolism please fit 2units 782.3 Richelle Casanova, 10/26/2011 Stockings Knee Length N.P. Misc Pen [place] 31G X 6mm every day 30units E11.40 Zack Parks NP 10/28/2010 31G X 6 mm Misc Acetaminophen ER 1 tab by mouth Unknown 650mg q4 hours as Tablets ER needed pain History Medications Lidocaine apply to painful 50units E11.40 Zack Parks NP 05/11/2018 - 5% Ointment areas three times 06/20/2018 a day as needed Gabapentin take one capsule 60caps E11.40 Zack Parks NP 05/11/2018 - 300mg by mouth at 06/12/2018 Capsules night. If tolerated after three days you can start taking one capsule in the morning and one in the evening Xultophy start 25 units 15ml E11.40 Favian Lamar MD 12/06/2017 - once daily in the 12/06/2017 100-3.6Unit-mg/ML morning. increase Solution Pen-Inject by 5 units every 4 days to maximum of 50 units per day Losartan Potassium take 100mg by 30tabs I10 Favian Lamar MD 12/06/2017 - mouth daily 02/21/2018 100mg Tablets Metformin HCL 1 by mouth once 60tabs E11.40 Zack Parks NP 10/27/2017 - 1000mg daily. After one 11/16/2017 Tablets week start taking one tablet twice daily. Freestyle Lite check BS 2 times 100units Prakash Noble 10/21/2017 - Lancets daily and as Scooter Barclay,[facility] 10/21/2017 needed Tylenol Q4H Unknown 10/20/2017 - 325mg Tablets 11/16/2017 Tobradex Q4H Unknown 10/19/2017 - 0.3-0.1% 02/21/2018 Suspension Pred Forte Twice Daily Unknown 10/19/2017 - 1% 02/21/2018 Suspension Ketorolac Four Times Daily Unknown 10/19/2017 - Tromethamine 02/21/2018 0.5% Solution Levemir 20 units Every Unknown 10/04/2017 - 100Unit/ML Day 12/05/2017 Solution Losartan Potassium Take One Tablet 30tabs I10 Zack Parks NP 09/26/2017 - By Mouth Every 12/06/2017 50mg Tablets Day Isabela Breeze 2 Test test two times a 50units E11.65 Prakash Noble 2016 - day as needed Scooter Barclay,[facility] 10/21/2017 2Test Disk Victoza 0.6 mg SC qd for 6ml Prakash Noble 04/07/2016 - 18mg/3ML 1 wk then inject Scooter Barclay,[facility] 09/26/2017 Solution Pen-Inject 1.2 mg under the skin daily Keflex one tablet qid x 40caps Other Ordering 01/12/2016 - 500mg Capsules 10 days Provider 04/07/2016 Glipizide ER take one tablet 60tabs E11.40 Kei Chun, 03/17/2015 - 10mg by mouth daily in NEONATAL ICU COORDINATOR 04/07/2016 Tablets ER 24HR am Breeze 2 Blood for checking bid 1units Sagar 06/05/2014 - Glucose Monitoring Scooter Davis 10/21/2017 System Device Isabela Contour Blood use two times a 50units E11.65 Kei Chun, 2014 - Glucose Test Strips day as needed NEONATAL ICU COORDINATOR 01/25/2017 Strips Levemir Flextouch inject 20 units 15ml E11.40 Zack Parks NP 01/07/2014 - under the skin 12/08/2017 100Unit/ML Solution daily Pen-Inject Losartan Potassium Take One Tablet 30tabs Prakash Noble 12/06/2013 - By Mouth Every Scooter Barclay,[facility] 03/17/2015 50mg Tablets Day Losartan Potassium 1 by mouth every 30tabs 250.62 Prakash Noble 11/02/2013 - day Scooter Barclay,[facility] 12/06/2013 50mg Tablets Advil 1-2 as needed Prakash Noble 10/26/2013 - 200mg Tablets Scooter Barclay,[facility] 10/21/2017 Ramipril by mouth every 90caps 250.62 Prakash Noble 10/26/2013 - 5mg Capsules day Scooter Barclay,[facility] 11/02/2013 Invokana take one tablet 30tabs E11.40 Kei Chun, 10/26/2013 - 300mg by mouth every NEONATAL ICU COORDINATOR 09/26/2017 Tablets day Invokana 1 by mouth every 30tabs 250.62 Prakash Noble 09/14/2013 - 100mg day Scooter Barclay,[facility] 10/26/2013 Tablets Ramipril 1 by mouth every 30caps 250.62 Prakash Noble 09/14/2013 - 2.5mg day Scooter Barclay,[facility] 10/26/2013 Capsules Sure Comfort 31G Pen Use Once Daily 100units Prakash Noble 04/04/2012 - Needle Scooter Barclay,[facility] 03/07/2014 Ramipril Take One Capsule 30caps 250.02 Prakash Noble 02/02/2012 - 5mg Capsules By Mouth Every Scooter Barclay,[facility] 09/14/2013 Day Simvastatin 1 po qpm 90tabs 250.02 Prakash Noble 02/02/2012 - 20mg Scooter Barclay,[facility] 09/14/2013 Tablets Simvastatin take 1 tablet by 30tabs Richelle Casanova, 10/28/2011 - 10mg mouth at bedtime N.P. 02/02/2012 Tablets Furosemide 1 po qam 15tabs 782.3 Richelle Casanova, 10/26/2011 - 20mg N.P. 09/14/2013 Tablets Avelox 1 po daily 10tabs 681.9 Michelle Justin, 04/01/2011 - 400mg Tablets M.D. 04/30/2011 Ibuprofen 1 tab by mouth 90tabs 681.9 Prakash Noble 04/01/2011 - 600mg three times a day Scooter Barclay,[facility] 10/26/2013 Tablets prn Simvastatin 1 po qpm 90tabs 272.2 Prakash Noble 12/09/2010 - 20mg Scooter Barclay,[facility] 03/25/2011 Tablets Levemir Flexpen Inject 20 Units 15units 250.62 Richelle Casanova, 10/28/2010 - Under The Skin N.P. 01/07/2014 100Unit/ML Solution Every 24 Hours Cymbalta 1 po qam for 2 45caps 250.62 Prakash Noble 06/16/2010 - 30mg Caps DR gutierrez, then 2 qAM Scooter Barclay,[facility] 10/28/2010 Part Gabapentin 1 tab tid plus 2 150tabs 250.62 Prakash Noble 06/16/2010 - 300mg qhs Scooter Barclay,[facility] 07/29/2010 Tablets Glimepiride 1 po qd 30tabs 250.62 Prakash Noble 06/16/2010 - 1mg Scooter Barclay,[facility] 07/29/2010 Tablets Metformin 1 po bid 250.02 Prakash Noble 06/08/2010 - 500mg Scooter Barclay,[facility] 06/16/2010 Januvia Take One Tablet 30tabs Prakash Noble 06/03/2010 - 100mg Tablets By Mouth Every Scooter Barcaly,[facility] 09/14/2013 Day Gabapentin 2 tid plus 3 qhs 200caps 250.62 Prakash Noble 05/14/2010 - 100mg Scooter Barclay,[facility] 06/16/2010 Capsules Metformin HCL 1 po bid 60tabs 250.02 Prakash Noble 05/14/2010 - 1000mg Scooter Barclay,[facility] 06/08/2010 Tablets Metformin HCL 1 po bid 60tabs 250.02 Prakash Noble 05/01/2010 - 500mg Scooter Barclay,[facility] 05/14/2010 Tablets Isabela Breeze 2 Test Use Two Times A 50units 250.02 Prakash Noble 2010 - Disc Day as Needed Scooter Barclay,FACP 03/28/2014 2Test Disk Samuel-Tab po qid Unknown - 250mg Tablets 05/27/2010 DR Fuller 05/11/18 reports Unknown - 0.5mg/0.05ML no longer taking 06/20/2018 Solution 1 q 6weeks Metanx PO bid 250.02 Unknown - 3-35-2mg 10/26/2011 Tablets Vitamin B-12 1 by mouth every 30tabs Unknown - 500mcg day 12/06/2013 Tablets Sub Metanx 1 by mouth bid 60caps Unknown - every day 12/20/2013 3-90.314-2-35mg Capsules B-12 1 by mouth every 90tabs Unknown - (Methylcobalamin) day 11/16/2017 500mg Tablets Sub Aspirin 81 Low Dose 1 by mouth every Unknown - day 11/23/2017 81mg Chewtabs Atorvastatin Calcium 1 by mouth every Unknown - evening 02/21/2018 80mg Tablets Immunizations CPT Code Status Date Vaccine Lot # [id number] Refused 02/02/2012 Pneumonia Vaccine [id number] Refused 02/02/2012 Influenza Virus 3Yrs & Over [id number] Refused 03/25/2011 Influenza Virus 3Yrs & Over 83522 Refused 12/09/2010 Influenza Virus 3Yrs & Over 62463 Refused 05/14/2010 Influenza Virus 3Yrs & Over Vital Signs Date Vital Result Comment 08/11/2018 9:38am Height 65.5 inches 5'5.50" Weight 243.12 lb Heart Rate 89 /min BP Systolic 135 mmHg BP Diastolic 85 mmHg Body Temperature 97.3 F O2 % BldC Oximetry 97 % BMI (Body Mass Index) 39.8 kg/m2 07/17/2018 10:37am Height 65.5 inches 5'5.50" Weight 238.25 lb Heart Rate 94 /min BP Systolic 151 mmHg BP Diastolic 87 mmHg Body Temperature 97.1 F O2 % BldC Oximetry 98 % BMI (Body Mass Index) 39.0 kg/m2 06/21/2018 9:32am Height 65.5 inches 5'5.50" Weight 237.00 lb Heart Rate 80 /min BP Systolic Sitting 115 mmHg BP Diastolic Sitting 70 mmHg BMI (Body Mass Index) 38.8 kg/m2 06/12/2018 9:07am Height 65.5 inches 5'5.50" Weight 238.00 lb Heart Rate 86 /min BP Systolic 142 mmHg BP Diastolic 90 mmHg BP Systolic Recheck 128 mmHg BP Diastolic Recheck 74 mmHg Body Temperature 97.7 F O2 % BldC Oximetry 98 % BMI (Body Mass Index) 39.0 kg/m2 05/11/2018 10:41am Height 65.5 inches 5'5.50" Weight 234.00 lb Heart Rate 92 /min BP Systolic 148 mmHg BP Diastolic 87 mmHg BP Systolic Recheck 136 mmHg BP Diastolic Recheck 86 mmHg Body Temperature 97.9 F O2 % BldC Oximetry 99 % BMI (Body Mass Index) 38.3 kg/m2 02/21/2018 4:23pm Height 65.5 inches 5'5.50" Weight 229.00 lb Heart Rate 102 /min BP Systolic Sitting 156 mmHg BP Diastolic Sitting 80 mmHg BP Systolic Recheck 162 mmHg BP Diastolic Recheck 98 mmHg Body Temperature 96.5 F O2 % BldC Oximetry 96 % BMI (Body Mass Index) 37.5 kg/m2 01/03/2018 2:47pm Height 65.5 inches 5'5.50" Weight 226.00 lb w/ shoes Heart Rate 88 /min BP Systolic Sitting 175 mmHg BP Diastolic Sitting 96 mmHg BMI (Body Mass Index) 37.0 kg/m2 12/08/2017 1:55pm Height 65.5 inches 5'5.50" Weight 226.00 lb Heart Rate 79 /min BP Systolic 168 mmHg - right arm- 161/94-left arm. BP Diastolic 91 mmHg - right arm- 161/94-left arm. BP Systolic Recheck 148 mmHg BP Diastolic Recheck 84 mmHg Body Temperature 97.7 F O2 % BldC Oximetry 97 % BMI (Body Mass Index) 37.0 kg/m2 12/06/2017 3:41pm Height 65.5 inches 5'5.50" Weight 266.00 lb w/ shoes Heart Rate 79 /min BP Systolic Sitting 180 mmHg BP Diastolic Sitting 96 mmHg BMI (Body Mass Index) 43.6 kg/m2 11/28/2017 9:27am Height 65.5 inches 5'5.50" Weight 227.00 lb Heart Rate 75 /min BP Systolic 174 mmHg BP Diastolic 89 mmHg BP Systolic Recheck 148 mmHg BP Diastolic Recheck 86 mmHg O2 % BldC Oximetry 100 % BMI (Body Mass Index) 37.2 kg/m2 11/17/2017 10:21am Height 65.5 inches 5'5.50" Weight 229.00 lb Heart Rate 98 /min BP Systolic Sitting 178 mmHg BP Diastolic Sitting 88 mmHg Respiratory Rate 16 /min BMI (Body Mass Index) 37.5 kg/m2 10/27/2017 3:47pm Height 65.5 inches 5'5.50" Weight 231.00 lb Heart Rate 85 /min BP Systolic Sitting 152 mmHg BP Diastolic Sitting 86 mmHg Body Temperature 98.9 F O2 % BldC Oximetry 98 % BMI (Body Mass Index) 37.9 kg/m2 09/26/2017 9:34am Height 65.5 inches 5'5.50" Weight 225.25 lb [...] BMI (Body Mass Index) 36.9 kg/m2 04/07/2016 1:55pm Weight 238.12 lb Heart Rate 96 /min BP Systolic Sitting 156 mmHg BP Diastolic Sitting 84 mmHg Body Temperature 97.9 F O2 % BldC Oximetry 97 % 03/17/2015 2:32pm Height 65.5 inches 5'5.50" Weight 239.50 lb Heart Rate 76 /min BP Systolic Sitting 170 mmHg Recheck bp 170/96 BP Diastolic Sitting 108 mmHg Recheck bp 170/96 Body Temperature 96.9 F O2 % BldC Oximetry 98 % BMI (Body Mass Index) 39.2 kg/m2 03/07/2014 8:44am Weight 246.50 lb Heart Rate 67 /min BP Systolic Sitting 138 mmHg BP Diastolic Sitting 84 mmHg Body Temperature 97.2 F O2 % BldC Oximetry 96 % 12/06/2013 9:15am Weight 241.00 lb Heart Rate 84 /min BP Systolic Sitting 128 mmHg BP Diastolic Sitting 82 mmHg Body Temperature 97.4 F 10/26/2013 9:44am Weight 241.25 lb Heart Rate 100 /min BP Systolic Sitting 146 mmHg BP Diastolic Sitting 100 mmHg Body Temperature 97.5 F 09/14/2013 2:08pm Height 65.5 inches 5'5.50" Weight 249.75 lb Heart Rate 80 /min BP Systolic Sitting 148 mmHg BP Diastolic Sitting 112 mmHg Body Temperature 98.4 F BMI (Body Mass Index) 40.9 kg/m2 02/02/2012 3:02pm Height 65.5 inches 5'5.50" Weight 243.00 lb Heart Rate 92 /min BP Systolic Sitting 172 mmHg BP Diastolic Sitting 108 mmHg BMI (Body Mass Index) 39.8 kg/m2 10/26/2011 9:07am Height 65.25 inches 5'5.25" Weight 245.00 lb Heart Rate 84 /min BP Systolic Sitting 126 mmHg BP Diastolic Sitting 78 mmHg Body Temperature 98.4 F lt ear BMI (Body Mass Index) 40.5 kg/m2 06/24/2011 10:33am Height 65.25 inches 5'5.25" Weight 237.00 lb Heart Rate 78 /min BP Systolic Sitting 118 mmHg lg cuff BP Diastolic Sitting 84 mmHg lg cuff BMI (Body Mass Index) 39.1 kg/m2 05/06/2011 3:36pm Height 65.25 inches 5'5.25" Weight 237.75 lb Heart Rate 72 /min BP Systolic Sitting 142 mmHg L BP Diastolic Sitting 92 mmHg L BMI (Body Mass Index) 39.3 kg/m2 04/06/2011 1:55pm Height 65.25 inches 5'5.25" Weight 230.00 lb Heart Rate 72 /min BP Systolic Sitting 132 mmHg L BP Diastolic Sitting 78 mmHg L BMI (Body Mass Index) 38.0 kg/m2 04/01/2011 2:15pm Height 65.25 inches 5'5.25" Weight 230.00 lb Heart Rate 72 /min BP Systolic Sitting 120 mmHg L BP Diastolic Sitting 80 mmHg L BMI (Body Mass Index) 38.0 kg/m2 03/25/2011 9:05am Height 65.25 inches 5'5.25" Weight 230.00 lb Heart Rate 100 /min BP Systolic Sitting 140 mmHg BP Diastolic Sitting 90 mmHg BMI (Body Mass Index) 38.0 kg/m2 01/01/2011 12:17pm Height 65.25 inches 5'5.25" Weight 229.50 lb Heart Rate 88 /min BP Systolic Sitting 130 mmHg BP Diastolic Sitting 88 mmHg BMI (Body Mass Index) 37.9 kg/m2 12/09/2010 11:02am Height 66 inches 5'6" Weight 227.00 lb Heart Rate 72 /min BP Systolic Sitting 128 mmHg BP Diastolic Sitting 78 mmHg BMI (Body Mass Index) 36.6 kg/m2 10/28/2010 2:27pm Weight 231.00 lb Heart Rate 80 /min BP Systolic Sitting 146 mmHg BP Diastolic Sitting 88 mmHg 07/29/2010 4:34pm Height 65.5 inches 5'5.50" Weight 233.00 lb Heart Rate 86 /min BP Systolic Sitting 124 mmHg BP Diastolic Sitting 80 mmHg BMI (Body Mass Index) 38.2 kg/m2 06/16/2010 9:54am Height 65.5 inches 5'5.50" Weight 239.00 lb Heart Rate 72 /min BP Systolic Sitting 120 mmHg BP Diastolic Sitting 86 mmHg BMI (Body Mass Index) 39.2 kg/m2 05/14/2010 10:17am Height 65.5 inches 5'5.50" Weight 237.00 lb Heart Rate 78 /min BP Systolic Sitting 136 mmHg BP Diastolic Sitting 90 mmHg BMI (Body Mass Index) 38.8 kg/m2 05/01/2010 3:50pm Height 65.5 inches 5'5.50" Weight 234.00 lb Heart Rate 70 /min BP Systolic 140 mmHg BP Diastolic 90 mmHg Body Temperature 97.9 F BMI (Body Mass Index) 38.3 kg/m2 Results Test Date Facility Test Result H/L Range Note Laboratory test 01/03/2018 [facility] House Hemoglobin A1c 7.0 5-7 finding Laboratory test 01/03/2018 [facility] In House Glucose Random 92 finding Lipid Profile 01/02/2018 [facility] Triglycerides 76 mg/dL 1 (Trig/Chol/HDL) [address] [place] [address] [phone] Cholesterol 135 mg/dL 2 HDL Cholesterol 46.6 mg/dL 3 LDL Cholesterol 73 mg/dL 4 Comp Metabolic Panel 01/02/2018 [facility] Sodium 140 mmol/L N 135-145 [address] [place] [address] [phone] Potassium 4.5 mmol/L N 3.5-5.0 Chloride 109 mmol/L N 101-111 Co2 Carbon Dioxide 28 mmol/L N 22-32 Anion Gap 3 mmol/L N 2-11 Glucose 72 mg/dL N 70-100 Blood Urea Nitrogen 24 mg/dL N 6-24 Creatinine 1.01 mg/dL High 0.51-0.95 BUN/Creatinine Ratio 23.8 High 8-20 Calcium 8.6 mg/dL N 8.6-10.3 Total Protein 5.8 g/dL Low 6.4-8.9 Albumin 3.3 g/dL N 3.2-5.2 Globulin 2.5 g/dL N 2-4 Albumin/Globulin Ratio 1.3 N 1-3 Total Bilirubin 0.30 mg/dL N 0.2-1.0 Alkaline Phosphatase 53 U/L N 34-104 Alt 18 U/L N 7-52 Ast 16 U/L N 13-39 Egfr Non- 57.1 >60 Egfr 69.1 >60 5 Laboratory test 01/02/2018 [facility] TSH (Thyroid 0.95 mcIU/mL N 0.34-5.[address] Stim Horm) [place] [address] [phone] Laboratory test 12/20/2017 [facility] Point of Care 70 mg/dL N 70-100 [address] [place] [address] [phone] Laboratory test 12/20/2017 [facility] Point of Care 80 mg/dL N 70-100 [address] [place] [address] [phone] Laboratory test 12/06/2017 [facility] In House Glucose 211 finding Random CBC Auto Diff 11/16/2017 [facility] White Blood 6.9 10^3/uL N 3.5-10.[address] [place] [address] [phone] Red Blood Count 4.50 10^6/uL N 4.00-5.40 Hemoglobin 12.9 g/dL N 12.0-16.0 Hematocrit 38 % N 35-47 Mean Corpuscular Volume 84 fL N 80-97 Mean Corpuscular Hemoglobin 29 pg N 27-31 Mean Corpuscular HGB Conc 34 g/dL N 31-36 Red Cell Distribution Width 14 % N 10.5-15 Platelet Count 297 10^3/uL N 150-450 Mean Platelet Volume 7.8 um3 N 7.4-10.4 Abs Neutrophils 4.9 10^3/uL N 1.5-7.7 Abs Lymphocytes 1.3 10^3/uL N 1.0-4.8 Abs Monocytes 0.6 10^3/uL N 0-0.8 Abs Eosinophils 0.1 10^3/uL N 0-0.6 Abs Basophils 0.1 10^3/uL N 0-0.2 Abs Nucleated RBC 0 10^3/uL Granulocyte % 71.0 % N 38-83 Lymphocyte % 18.6 % Low 25-47 Monocyte % 8.4 % High 0-7 Eosinophil % 0.9 % N 0-6 Basophil % 1.1 % N 0-2 Nucleated Red Blood Cells % 0 Urinalysis Profile 11/16/2017 [facility] Urine Color Straw [address] [place] [address] [phone] Urine Appearance Clear Urine Specific Zoe 1.006 Low 1.010-1.030 Urine pH 6.0 N 5-9 Urine Urobilinogen Negative Negative Urine Ketones Negative Negative Urine Protein 2+(100 mg/dL) Abnormal Negative Urine Leukocytes Negative Negative Urine Blood 2+ Abnormal Negative Urine Nitrite Negative Negative Urine Bilirubin Negative Negative Urine Glucose Negative Negative Urine White Blood Cell Absent Absent Urine Red Blood Cell Trace(0-2/hpf) Absent Urine Bacteria Absent Absent Urine Squamous Epithelial Cell Present Abnormal Absent Comp Metabolic Panel 11/16/2017 [facility] Sodium 140 mmol/L N 135-145 [address] [place] [address] [phone] Potassium 3.9 mmol/L N 3.5-5.0 Chloride 107 mmol/L N 101-111 Co2 Carbon Dioxide 28 mmol/L N 22-32 Anion Gap 5 mmol/L N 2-11 Glucose 120 mg/dL High 70-100 Blood Urea Nitrogen 26 mg/dL High 6-24 Creatinine 1.02 mg/dL High 0.51-0.95 BUN/Creatinine Ratio 25.5 High 8-20 Calcium 8.9 mg/dL N 8.6-10.3 Total Protein 6.4 g/dL N 6.4-8.9 Albumin 3.2 g/dL N 3.2-5.2 Globulin 3.2 g/dL N 2-4 Albumin/Globulin Ratio 1.0 N 1-3 Total Bilirubin 0.30 mg/dL N 0.2-1.0 Alkaline Phosphatase 95 U/L N 34-104 Alt 29 U/L N 7-52 Ast 32 U/L N 13-39 Egfr Non- 56.5 >60 Egfr 68.3 >60 8 Laboratory test 11/16/2017 [facility] Magnesium 1.9 mg/dL N 1.9-2.[address] [place] [address] [phone] Troponin-I (TnI) 0.01 ng/mL <0.04 TSH (Thyroid Stim Horm) 1.18 mcIU/mL N 0.34-5.60 Laboratory Studies 11/16/2017 N2N/CCD Import Absolute Basophils 0.1 10^3/ ul 0-0.2 (auto) Absolute Eosinophils (auto) 0.1 10^3/ul 0-0.6 Absolute Lymphocytes (auto) 1.3 10^3/ul 1.0-4.8 Absolute Monocytes (auto) 0.6 10^3/ul 0-0.8 Absolute Neutrophils (auto) 4.9 10^3/ul 1.5-7.7 Alanine Aminotransferase (Alt/SGPT) 29 U/L 7-52 Albumin 3.2 g/dL 3.2-5.2 Albumin/Globulin Ratio 1.0 1-3 Alkaline Phosphatase 95 U/L 34-104 Anion Gap 5 mmol/L 2-11 Aspartate Amino Transf (Ast/Sgot) 32 U/L 13-39 BUN/Creatinine Ratio 25.5 High 8-20 Basophils (%) (Auto) 1.1 % 0-2 Blood Urea Nitrogen 26 mg/dL High 6-24 Calcium Level 8.9 mg/dL 8.6-10.3 Carbon Dioxide Level 28 mmol/L 22-32 Chloride Level 107 mmol/L 101-111 Creatinine 1.02 mg/dL High 0.51-0.95 Eosinophils (%) (Auto) 0.9 % 0-6 Estimated GFR () 68.3 Estimated GFR (Non- 56.5 Globulin 3.2 g/dL 2-4 Glucose Level 120 mg/dL High 70-100 Hematocrit 38 % 35-47 Hemoglobin 12.9 g/dL 12.0-16.0 Lymphocytes (%) (Auto) 18.6 % Low 25-47 Magnesium Level 1.9 mg/dL 1.9-2.7 Mean Corpuscular Hemoglobin 29 pg 27-31 Mean Corpuscular Hemoglobin Concent 34 g/dL 31-36 Mean Corpuscular Volume 84 fL 80-97 Mean Platelet Volume 7.8 um3 7.4-10.4 Monocytes (%) (Auto) 8.4 % High 0-7 Neutrophils (%) (Auto) 71.0 % 38-83 Nucleated RBC Absolute Count (auto) 0 10^3/ul Nucleated Red Blood Cells % 0 Platelet Count 297 10^3/ul 150-450 Potassium Level 3.9 mmol/L 3.5-5.0 Red Blood Count 4.50 10^6/ul 4.00-5.40 Red Cell Distribution Width 14 % 10.5-15 Sodium Level 140 mmol/L 135-145 Thyroid Stimulating Hormone (TSH) 1.18 mcIU/mL 0.34-5.60 Total Bilirubin 0.30 mg/dL 0.2-1.0 Total Protein 6.4 g/dL 6.4-8.9 Troponin I 0.01 ng/mL White Blood Count 6.9 10^3/ul 3.5-10.8 Laboratory Studies 11/16/2017 N2N/CCD Import Urine Specific 1.006 Low 1.010-1.030 Zoe Urine pH 6.0 5-9 Laboratory Studies 10/20/2017 N2N/CCD Import Poc Glucose 204 mg/dL High 70-100 (mg/dL) Laboratory Studies 10/20/2017 N2N/CCD Import Cholesterol Level 265 mg/dL HDL Cholesterol 39.9 mg/dL Hemoglobin A1c 14.0 % High 4.0-5.6 International Ratio (Anticoag Ther) 0.93 0.77-1.02 LDL Cholesterol 188 mg/dL Triglycerides Level 184 mg/dL Laboratory test 10/19/2017 [facility] Lactic Acid 1.2 mmol/L N 0.5-2.0 [address] [place] [address] [phone] CBC Auto Diff 10/19/2017 [facility] White Blood 7.6 10^3/uL N 3.5-10.[address] [place] [address] [phone] Red Blood Count 4.96 10^6/uL N 4.00-5.40 Hemoglobin 14.3 g/dL N 12.0-16.0 Hematocrit 41 % N 35-47 Mean Corpuscular Volume 83 fL N 80-97 Mean Corpuscular Hemoglobin 29 pg N 27-31 Mean Corpuscular HGB Conc 35 g/dL N 31-36 Red Cell Distribution Width 13 % N 10.5-15 Platelet Count 272 10^3/uL N 150-450 Mean Platelet Volume 8.6 um3 N 7.4-10.4 Abs Neutrophils 5.1 10^3/uL N 1.5-7.7 Abs Lymphocytes 1.8 10^3/uL N 1.0-4.8 Abs Monocytes 0.5 10^3/uL N 0-0.8 Abs Eosinophils 0.1 10^3/uL N 0-0.6 Abs Basophils 0.1 10^3/uL N 0-0.2 Abs Nucleated RBC 0 10^3/uL Granulocyte % 66.7 % N 38-83 Lymphocyte % 23.3 % Low 25-47 Monocyte % 7.2 % High 0-7 Eosinophil % 1.7 % N 0-6 Basophil % 1.1 % N 0-2 Nucleated Red Blood Cells % 0.1 Inr/Protime 10/19/2017 [facility] Inr 0.86 N 0.77-1.[address] [place] [address] [phone] Laboratory test 10/19/2017 [facility] Partial 26.5 seconds N 26.0-36.[address] [place] [address] PTT [phone] Type & Screen 10/19/2017 [facility] Patient A Positive [address] [place] [address] [phone] Antibody Screen NEGATIVE Comp Metabolic Panel 10/19/2017 [facility] Sodium 134 mmol/L Low 135-[address] [place] [address] [phone] Potassium 4.1 mmol/L N 3.5-5.0 Chloride 99 mmol/L Low 101-111 Co2 Carbon Dioxide 26 mmol/L N 22-32 Anion Gap 9 mmol/L N 2-11 Glucose 236 mg/dL High 70-100 Blood Urea Nitrogen 23 mg/dL N 6-24 Creatinine 1.17 mg/dL High 0.51-0.95 BUN/Creatinine Ratio 19.7 N 8-20 Calcium 9.0 mg/dL N 8.6-10.3 Total Protein 6.9 g/dL N 6.4-8.9 Albumin 3.3 g/dL N 3.2-5.2 Globulin 3.6 g/dL N 2-4 Albumin/Globulin Ratio 0.9 Low 1-3 Total Bilirubin 0.50 mg/dL N 0.2-1.0 Alkaline Phosphatase 47 U/L N 34-104 Alt 9 U/L N 7-52 Ast 13 U/L N 13-39 Egfr Non- 48.2 >60 Egfr 58.3 >60 10 Lipid Profile 10/19/2017 [facility] Triglycerides 216 mg/dL 11 (Trig/Chol/HDL) [address] [place] [address] [phone] Cholesterol 314 mg/dL 12 HDL Cholesterol 45.2 mg/dL 13 LDL Cholesterol 226 mg/dL 14 Laboratory test 10/19/2017 [facility] Troponin-I (TnI) 0.00 ng/ mL <0.[address] [place] [address] [phone] Urinalysis 10/19/2017 [facility] Urine Color Yellow Profile [address] [place] [address] [phone] Urine Appearance Cloudy Urine Specific Zoe 1.027 N 1.010-1.030 Urine pH 5.0 N 5-9 Urine Urobilinogen Negative Negative Urine Ketones Negative Negative Urine Protein 3+(>=500 mg/dL) Abnormal Negative Urine Leukocytes Negative Negative Urine Blood 1+ Abnormal Negative Urine Nitrite Negative Negative Urine Bilirubin Negative Negative Urine Glucose 2+(150 mg/dL) Abnormal Negative Urine White Blood Cell Trace(0-5/hpf) Absent Urine Red Blood Cell Trace(0-2/hpf) Absent Urine Bacteria Absent Absent Urine Squamous Epithelial Cell Present Abnormal Absent Urine Culture And 10/19/2017 [facility] Urine Culture SEE RESULT [address] [place] [address] [phone] Laboratory 10/19/2017 N2N/CCD Import Lactic Acid Level 1.2 mmol/L 0.5- Studies 2.0 Laboratory test 10/18/2017 [facility] Point of Care 292 mg/dL High 70-[address] Glucose 00 [place] [address] [phone] Laboratory test 10/18/2017 [facility] Point of Care 319 mg/dL High 70-[address] Glucose 00 [place] [address] [phone] Laboratory test 10/18/2017 [facility] Point of Care 327 mg/dL High 70-[address] Glucose 00 [place] [address] [phone] Laboratory test 09/26/2017 [facility] Hemoglobin A1c 14.0 % High 4.0- [address] (Glyco HGB) 5.6 [place] [address] [phone] Lipid Profile 09/26/2017 [facility] Triglycerides 260 mg/dL 20 (Trig/Chol/HDL) [address] [place] [address] [phone] Cholesterol 336 mg/dL 21 HDL Cholesterol 45.0 mg/dL 22 LDL Cholesterol 239 mg/dL 23 Urine Microalbumin 09/26/2017 [facility] Urine Creatinine 230.73 mg/dL Random [address] [place] [address] [phone] Ur Microalbumin (mg/L) 07617.0 mg/L Urine Microalbumin/Creatinine 4460.6 ug/mg High <31 Basic Metabolic Panel 09/26/2017 [facility] Sodium 135 mmol/L N 135-[address] [place] [address] [phone] Potassium 4.3 mmol/L N 3.5-5.0 Chloride 98 mmol/L Low 101-111 Co2 Carbon Dioxide 29 mmol/L N 22-32 Anion Gap 8 mmol/L N 2-11 Glucose 251 mg/dL High 70-100 Blood Urea Nitrogen 22 mg/dL N 6-24 Creatinine 1.18 mg/dL High 0.51-0.95 BUN/Creatinine Ratio 18.6 N 8-20 Calcium 8.9 mg/dL N 8.6-10.3 Egfr Non- 47.7 >60 Egfr 57.8 >60 24 CBC Auto 10/29/2016 [facility] White Blood 13.0 10^3/uL High 3.5-10.[address] [place] [address] [phone] Red Blood Count 5.03 10^6/uL N 4.0-5.4 Hemoglobin 14.4 g/dL N 12.0-16.0 Hematocrit 44 % N 35-47 Mean Corpuscular Volume 87 fL N 80-97 Mean Corpuscular Hemoglobin 29 pg N 27-31 Mean Corpuscular HGB Conc 33 g/dL N 31-36 Red Cell Distribution Width 13 % N 10.5-15 Platelet Count 244 10^3/uL N 150-450 Mean Platelet Volume 9 um3 N 7.4-10.4 Abs Neutrophils 10.7 10^3/uL High 1.5-7.7 Abs Lymphocytes 1.3 10^3/uL N 1.0-4.8 Abs Monocytes 0.8 10^3/uL N 0-0.8 Abs Eosinophils 0.1 10^3/uL N 0-0.6 Abs Basophils 0.1 10^3/uL N 0-0.2 Abs Nucleated RBC 0.02 10^3/uL N Granulocyte % 82.5 % N 38-83 Lymphocyte % 9.9 % Low 25-47 Monocyte % 6.1 % N 1-9 Eosinophil % 0.6 % N 0-6 Basophil % 0.9 % N 0-2 Nucleated Red Blood Cells % 0.1 N Laboratory test 10/29/2016 [facility] Lactic Acid 1.4 mmol/L N 0.5-2.0 25 finding [address] [place] [address] [phone] Urinalysis 10/29/2016 [facility] Urine Color Yellow N Profile [address] [place] [address] [phone] Urine Appearance Cloudy N Urine Specific Zoe 1.025 N 1.010-1.030 Urine pH 5.0 N 5-9 Urine Urobilinogen Negative N Negative Urine Ketones Trace Abnormal Negative Urine Protein 3+(>=500 mg/dL) Abnormal Negative Urine Leukocytes Negative N Negative Urine Blood 1+ Abnormal Negative Urine Nitrite Negative N Negative Urine Bilirubin Negative N Negative Urine Glucose 3+(>=500 mg/dL) Abnormal Negative Urine White Blood Cell Trace(0-5/hpf) N Absent Urine Red Blood Cell 1+(3-5/hpf) Abnormal Absent Urine Bacteria Absent N Absent Urine Squamous Epithelial Cell Present Abnormal Absent Comp Metabolic Panel 10/29/2016 [facility] Sodium 126 mmol/L Low 133-145 [address] [place] [address] [phone] Potassium 3.8 mmol/L N 3.5-5.0 Chloride 93 mmol/L Low 101-111 Co2 Carbon Dioxide 26 mmol/L N 22-32 Anion Gap 7 mmol/L N 2-11 Glucose 380 mg/dL High 70-100 Blood Urea Nitrogen 18 mg/dL N 6-24 Creatinine 1.16 mg/dL High 0.51-0.95 BUN/Creatinine Ratio 15.5 N 8-20 Calcium 8.9 mg/dL N 8.6-10.3 Total Protein 7.6 g/dL N 6.4-8.9 Albumin 3.5 g/dL N 3.2-5.2 Globulin 4.1 g/dL High 2-4 Albumin/Globulin Ratio 0.9 Low 1-3 Total Bilirubin 0.60 mg/dL N 0.2-1.0 Alkaline Phosphatase 69 U/L N 34-104 Alt 8 U/L N 7-52 Ast 10 U/L Low 13-39 Egfr Non- 48.9 N >60 Egfr 62.8 N >60 26 Laboratory test 10/29/2016 [facility] Troponin-I 0.01 ng/mL N <0.[address] (TnI) [place] [address] [phone] Inr/Protime 10/29/2016 [facility] Inr 0.93 N 0.89-1.[address] [place] [address] [phone] Laboratory test 10/29/2016 [facility] Partial Thrombo 28.7 seconds N 26.0-36.[address] [place] [address] [phone] Blood Culture SEE RESULT BELOW 27 Laboratory test 04/07/2016 [facility] Hemoglobin A1c >14.0 High 5-7 finding Laboratory test 06/26/2015 [facility] Hemoglobin A1c 9.5 % High Less than [address] (Glyco HGB) 6.0 [place] [address] [phone] Urine Microalbumin 06/26/2015 [facility] Ur Microalbumin 1512.[address] N Random [address] (mg/L) mg/[place] [address] [phone] Urine Creatinine 74.15 mg/dL N Urine Microalbumin/Creatinine 2039.7 ug/mg High <31 Lipid Profile 06/26/2015 [facility] Triglycerides 166 mg/dL N 29 (Trig/Chol/HDL) [address] [place] [address] [phone] Cholesterol 256 mg/dL N 30 HDL Cholesterol 48.3 mg/dL N 31 LDL Cholesterol 175 mg/dL N 32 Comp Metabolic Panel 06/26/2015 [facility] Sodium 136 mmol/L N 133-[address] [place] [address] [phone] Potassium 4.2 mmol/L N 3.5-5.0 Chloride 101 mmol/L N 101-111 Co2 Carbon Dioxide 28 mmol/L N 22-32 Anion Gap 7 mmol/L N 2-11 Glucose 130 mg/dL High 70-100 Blood Urea Nitrogen 17 mg/dL N 6-24 Creatinine 0.93 mg/dL N 0.51-0.95 BUN/Creatinine Ratio 18.3 N 8-20 Calcium 8.8 mg/dL N 8.6-10.3 Total Protein 6.2 g/dL Low 6.4-8.9 Albumin 3.6 g/dL N 3.2-5.2 Globulin 2.6 g/dL N 2-4 Albumin/Globulin Ratio 1.4 N 1-3 Total Bilirubin 0.40 mg/dL N 0.2-1.0 Alkaline Phosphatase 42 U/L N 34-104 Alt 11 U/L N 7-52 Ast 12 U/L Low 13-39 Egfr Non- 63.3 N >60 Egfr 81.4 N >60 33 Urine Microalbumin 03/17/2015 [facility] Urine Creatinine 67.38 mg/dL N Random [address] [place] [address] [phone] Ur Microalbumin (mg/L) 1067.0 mg/L N Urine Microalbumin/Creatinine 1583.5 ug/mg High <31 Laboratory test 03/17/2015 [facility] Hemoglobin A1c 14.0 High 5-7 finding Laboratory test 03/07/2014 [facility] Hemoglobin A1c 7.8 High 5-7 finding Laboratory test 12/06/2013 [facility] Hemoglobin A1c 8.9 High 5-7 finding Creatinine 10/22/2013 [facility] Urine Random 48.89 mg/dL N Clear[address] Creatinine [place], [place] [address] [phone] Creatinine 1.12 mg/dL High 0.51-0.95 Creatinine Clearance 68 mL/min Low 88-128 Urine Collection Time 24 N Urine Total Volume 2250 mL N Total Protein 24HR 10/22/2013 [facility] Urine Random Total 103 mg/dL N Urine [address] [place] [address] [phone] Urine Total Protein/24HR 2317 mg/24Hr High 0-165 Urine Collection Time 24 N Urine Total Volume 2250 mL N Basic Metabolic Panel 10/22/2013 [facility] Sodium 137 mmol/L N 133-[address] [place] [address] [phone] Potassium 4.7 mmol/L N 3.7-5.6 Chloride 101 mmol/L N 101-111 Co2 Carbon Dioxide 30 mmol/L N 22-32 Anion Gap 6 mmol/L N 2-11 Glucose 182 mg/dL High 70-100 Blood Urea Nitrogen 15 mg/dL N 6-24 Creatinine 1.12 mg/dL High 0.51-0.95 BUN/Creatinine Ratio 13.4 N 8-20 Calcium 9.3 mg/dL N 8.6-10.3 Egfr Non- 51.5 N >60 Egfr 66.2 N >60 34 Lipid Profile 09/11/2013 [facility] Triglycerides 256 mg/dL N 35, 36 (Trig/Chol/HDL) [address] [place] [address] [phone] Cholesterol 294 mg/dL N 37 HDL Cholesterol 42.1 mg/dL N 38 LDL Cholesterol 201 mg/dL N 39 Urine Microalbumin 09/11/2013 [facility] Ur Microalbumin 1500.0 N <30 [address] (mg/L) mg/[place] [address] [phone] Urine Creatinine 152.94 mg/dL N Urine Microalbumin/Creatinine 980.7 High Less Than 31 Laboratory test 09/11/2013 [facility] Hemoglobin A1c 13.4 % High Less [address] than 6.0 [place] [address] [phone] Laboratory test 02/02/2012 [facility] Hemoglobin A1c 7.0 5-7 finding Basic Metabolic 10/26/2011 [facility] Sodium 135 135-[address] mmol/[place] [address] [phone] Potassium 4.3 mmol/L 3.5-5.0 Chloride 98 mmol/L Low 101-111 Co2 (Carbon Dioxide) 30.0 mmol/L 22-32 Anion Gap 7.0 mmol/L 2-11 42 Glucose 147 mg/dL High 70-100 BUN 9 mg/dL 6-24 Creatinine 0.7 mg/dL 0.50-1.40 One Over Creatinine 1.42 BUN/Creatinine Ratio 12.9 8-20 Calcium 8.9 mg/dL 8.1-9.9 eGFR Non- 89.3 > 60 eGFR 114.9 > 60 43 CBC With Manual 10/26/2011 [facility] White Blood 8.0 CUMM 4.8-10.[address] [place] [address] [phone] Red Cell Count 4.02 CUMM Low 4.2-5.4 [...] % 0-2 RBC Morphology NORMAL Laboratory test 10/26/2011 [facility] Hemoglobin A1c 7.4 High 5-7 finding Lipid Profile 10/26/2011 [facility] Triglyceride 130 mg/dL 40 -200 (Trig/Chol/HDL) [address] [place] [address] [phone] Cholesterol 238 mg/dL High Less Than 200 44 High Density Lipoprotein 47 mg/dL 40-60 45 Cholesterol/HDL Ratio 5.06 AVERAGE High 1-4.44 Low Density Lipoprotein 165 mg/dL High Less Than 100 46 (HCG) 06/25/2011 [facility] Specific 1.023 1.010- 1.[address] Zoe [place], [place] [address] [phone] Urine NEGATIVE Negative 47 Laboratory test 06/24/2011 [facility] Hemoglobin A1c 6.9 5-7 finding Lipid Profile 05/07/2011 [facility] Triglyceride 153 mg/dL 40 -200 (Trig/Chol/HDL) [address] [place], [place] [address] [phone] Cholesterol 271 mg/dL High Less Than 200 48 High Density Lipoprotein 48 mg/dL 40-60 49 Cholesterol/HDL Ratio 5.65 AVERAGE High 1-4.44 Low Density Lipoprotein 192 mg/dL High Less Than 100 50 Comp Metabolic Panel 05/07/2011 [facility] Sodium 138 mmol/L 135-[address] [place] [address] [phone] Potassium 4.0 mmol/L 3.5-5.0 Chloride 101 mmol/L 101-111 Co2 (Carbon Dioxide) 29.0 mmol/L 22-32 Anion Gap 8.0 mmol/L 2-11 51 Glucose 138 mg/dL High 70-100 BUN 8 mg/dL 6-24 Creatinine 0.6 mg/dL 0.50-1.40 One Over Creatinine 1.66 BUN/Creatinine Ratio 13.3 8-20 Calcium 8.8 mg/dL 8.1-9.9 Total Protein 6.6 GM/DL 6.2-8.1 Albumin 3.6 GM/DL 3.6-5.4 Globulin 3.0 GM/DL 2-4 Albumin/Globulin Ratio 1.2 1-3 Bilirubin Total 0.8 mg/dL 0.4-1.5 52 Alkaline Phosphatase 46 U/L 30-110 Alt (SGPT) 19 U/L 14-54 Ast (Sgot) 17 U/L 12-42 eGFR Non- 106.7 > 60 eGFR 137.2 > 60 53 Urine Microalbumin 05/07/2011 [facility] Microalbumin 1661.0 mg/ L Random [address] (MG/L) [place], [place] [address] [phone] Urine Creatinine 110.3 mg/dL Cornel Alb/Creatinine Ratio 1505.9 UG/MG High Less Than 30 54 Laboratory test 05/07/2011 [facility] C Reactive 1.4 mg/dL High Less Than finding [address] Protein 0.5 [place] [address] [phone] Erythrocyte Sed Rate 49 MM/HR High 0-15 Laboratory test 04/26/2011 [facility] BUN 17 mg/dL 6-[address] [place] [address] [phone] Creatinine 04/26/2011 [facility] Creatinine 1.0 mg/dL 0.50- 1.[address] [place] [address] [phone] One Over Creatinine 1.00 eGFR Non- 59.2 > 60 eGFR 76.1 > 60 55 Culture And 03/27/2011 [facility] M [address] <SEE NOTE> [place] [address] [phone] Laboratory 03/25/2011 [facility] Hemoglobin 6.9 5-7 test finding A1c Laboratory 12/09/2010 [facility] Hemoglobin 7.7 High 5-7 test finding A1c Laboratory 10/28/2010 [facility] Hemoglobin 9.2 High 5-7 test finding A1c Comp Metabolic 05/04/2010 [facility] Sodium 135 mmol/L [address] -14 [place] [address] 9 [phone] Potassium 5.0 mmol/L 3.5-5.0 Chloride 99 mmol/L Low 101-111 Co2 (Carbon Dioxide) 29.0 mmol/L 22-32 Anion Gap 7.0 mmol/L 2-11 57 Glucose 276 mg/dL High 70-100 BUN 9 mg/dL 6-24 Creatinine 0.60 mg/dL 0.50-1.40 One Over Creatinine 1.60 BUN/Creatinine Ratio 15.0 8-20 Calcium 8.8 mg/dL 8.1-9.9 Total Protein 6.2 GM/DL 6.2-8.1 Albumin 3.3 GM/DL Low 3.6-5.4 Globulin 2.9 GM/DL 2-4 Albumin/Globulin Ratio 1.1 1-3 Bilirubin Total 0.7 mg/dL 0.4-1.5 58 Alkaline Phosphatase 54 U/L 30-110 Alt (SGPT) 17 U/L 14-54 Ast (Sgot) 17 U/L 12-42 eGFR Non- 107.2 > 60 eGFR 137.8 > 60 59 Urine Microalbumin 05/04/2010 [facility] Microalbumin 841.0 mg/ L Random [address] (MG/L) [place] [address] [phone] Urine Creatinine 206.77 mg/dL Cornel Alb/Creatinine Ratio 406.7 UG/MG High Less Than 30 60 Lipid Profile 05/04/2010 [facility] Triglyceride 187 mg/dL 40 -200 (Trig/Chol/HDL) [address] [place] [address] [phone] Cholesterol 266 mg/dL High Less Than 200 61 High Density Lipoprotein 47 mg/dL 40-60 62 Cholesterol/HDL Ratio 5.66 AVERAGE High 1-4.44 Low Density Lipoprotein 182 mg/dL High Less Than 100 63 Laboratory test finding 05/01/2010 [facility] Hemoglobin A1c 11.4 High 5-7 1 Desirable: <150 Borderline High: 150-199 High: 200-499 Very High: >500 2 Desirable: <200 Borderline High: 200-239 High: >239 3 Low: <40 Desirable: 40-60 High: >60 4 Desirable: <100 Near Optimal: 100-129 Borderline High: 130-159 High: 160-189 Very High: >189 5 Because ethnic data is not always readily [...] 15-29 5 Kidney failure <15 (or dialysis) 6 Nipple Maker: [id number] Nipple Maker: [id number] 8 Because ethnic data is not always readily [...] 15-29 5 Kidney failure <15 (or dialysis) 9 [facility] Severe Sepsis and Septic Shock Management Bundle Measure requires all lactic acids initially measuring >2.0 mmol/L be repeated. 10 Because ethnic data is not always [...] 5 Kidney failure <15 (or dialysis) 11 Desirable: <150 Borderline High: 150-199 High: 200-499 Very High: >500 12 Desirable: <200 Borderline High: 200-239 High: >239 13 Low: <40 Desirable: 40-60 High: >60 14 Desirable: <100 Near Optimal: 100-129 Borderline High: 130-159 High: 160-189 Very High: >189 15 SEE RESULT BELOW Name: MICHELLE EAGLE : [address]: Koby Jorge MD Acct: [id number] Unit: [id number] AGE: 52 Location: [place] [address] Re10/19/17 Dis: 10/20/17 SEX: F Status: DIS Ayla SPEC: [id number] JAUN: 10/19/[address] [facility] [address]: Inocente Mello MD REQ: [id number] RECD: 10/19/17 STATUS: CINDY ALICIA DR: Prakash Barclay MD _ SOURCE: URINE SPDESC: ORDERED: Urine Culture Procedure Result Reported Site Urine Culture Final 10/21/17- 1020 ML Mixed cristina; possible contamination. Suggest resubmission. * ML - Main Lab . END OF REPORT DEPARTMENT OF PATHOLOGY, [address] [place] [address] Angus Rubi M.D. Director [facility] # [id number] Nipple Maker: [id number] Nipple Maker: [id number] Nipple Maker: [id number] 19 Therapeutic target for the treatment of diabetes mellitus patients is <7% HBA1C, and in selective patients <6.0%. Please refer to [place] [employer] diabetic care guidelines for further information. 20 Desirable: <150 Borderline High: 150-199 High: 200-499 Very High: >500 21 Desirable: <200 Borderline High: 200-239 High: >239 22 Low: <40 Desirable: 40-60 High: >60 23 Desirable: <100 Near Optimal: 100-129 Borderline High: 130-159 High: 160-189 Very High: >189 24 Because ethnic data is not always readily [...] 15-29 5 Kidney failure <15 (or dialysis) 25 [facility] Severe Sepsis and Septic Shock Management Bundle Measure requires all lactic acids initially measuring >2.0 mmol/L be repeated. 26 Because ethnic data is not always [...] 5 Kidney failure <15 (or dialysis) 27 SEE RESULT BELOW Name: EAGLEMICHELLE D : [address]: Eleni Salcedo MD Acct: [id number] Unit: [id number] AGE: 51 Location: ED Re10/29/16 SEX: F Status: DEP ER SPEC: [id number] JAUN: 10/29/16-[address] [facility] [address]: Jim Collins MD REQ: [id number] RECD: 10/29/164494 STATUS: COMP OT DR: [facility] Prakash Barclay MD _ SOURCE: BLOOD,VENO SPDESC: ORDERED: Blood Cult COMMENTS: ONLY AEROBIC BOTTLE COLLECTED Procedure Result Reported Site Aerobic Culture Bottle Final 11/03/16- 1504 ML No Growth Day 5 * ML - MAIN LAB (PSC1) . END OF REPORT * ML=Testing performed at Main Lab DEPARTMENT OF PATHOLOGY, [address] [place] [address] Angus Rubi M.D. Director [facility] # [id number] 28 Therapeutic target for the treatment of diabetes Mellitus patients is <7% HBA1C, and in selective patients <6.0%.Please refer to [place] [employer] Diabetic care guidelines for further information. 29 Desirable <150 Borderline high 150-199 High 200-499 Very High >500 30 Desirable <200 Borderline high 200-239 High >239 31 Low <40 Desirable: 40-60 High: >60 32 Desirable: <100 mg/dL Near Optimal: 100-129 mg/dL Borderline High: 130-159 mg/dL High: 160-189 mg/dL Very High: >189 mg/dL 33 Because ethnic data is not always readily [...] 15-29 5 Kidney failure <15 (or dialysis) 34 Because ethnic data is not always readily [...] 15-29 5 Kidney failure <15 (or dialysis) 35 FASTING 36 Desirable <150 Borderline high 150-199 High 200-499 Very High >500 37 Desirable <200 Borderline high 200-239 High >239 38 Low <40 Desirable: 40-60 High: >60 39 Desirable <100 Near Optimal 100-129 Borderline high 130-159 High 160-189 Very High >189 40 --- 09/11/13 1233 --- UR Microalbumin previously reported as: 1500.0 mg/dL Microalbuminuria in a random sample is defined as: Microalbumin/Creatinine ratio of 30-299 ug/mg. 41 Therapeutic target for the treatment of diabetes Mellitus patients is <7% HBA1C, and in selective patients <6.0%.Please refer to [place] [employer] Diabetic care guidelines for further information. 42 Anion gap measurement may be of limited value in the presence of any alkalosis, especially in a combined acid base disorder. . 43 Because ethnic data is not always readily [...] 15-29 5 Kidney failure <15 (or dialysis) 44 CHOLESTEROL INTERPRETATION: Desirable: Less than 200 MG/DL Borderline-High Risk: 200-239 MG/DL High-Risk: 240 MG/DL and over 45 HDL INTERPRETATION: Undesirable: High Risk: Less than 40 MG/DL Desirable: Low Risk: Greater than 60 MG/DL 46 LDL INTERPRETATION: Low Risk Optimal Level: LDL Less than 100 MG/DL Near or Above Optimal: LDL 100-129 MG/DL Borderline High Risk: LDL 130-159 MG/DL High Risk: LDL 160-189 MG/DL Very High Risk: LDL Greater than 189 MG/DL 47 If is still suspected, please repeat test after 48 to 72 hours. . This test detects intact HCG only and is indicated for the early detection of . 48 CHOLESTEROL INTERPRETATION: Desirable: Less than 200 MG/DL Borderline-High Risk: 200-239 MG/DL High-Risk: 240 MG/DL and over 49 HDL INTERPRETATION: Undesirable: High Risk: Less than 40 MG/DL Desirable: Low Risk: Greater than 60 MG/DL 50 LDL INTERPRETATION: Low Risk Optimal Level: LDL Less than 100 MG/DL Near or Above Optimal: LDL 100-129 MG/DL Borderline High Risk: LDL 130-159 MG/DL High Risk: LDL 160-189 MG/DL Very High Risk: LDL Greater than 189 MG/DL 51 Anion gap measurement may be of limited value in the presence of any alkalosis, especially in a combined acid base disorder. . 52 A metabolite of Naproxen, O-desmethylnaproxen, has been shown to interfere with the Jendrassik-Carroll method for measuring total bilirubin. Samples from patients who have taken Naproxen have shown spurious elevation in total bilirubin levels. 53 Because ethnic data is not always readily [...] 15-29 5 Kidney failure <15 (or dialysis) 54 MICROALBUMINURIA IN A RANDOM SAMPLE IS DEFINED : MICROALBUMIN/CREATININE RATIO OF 30-299 ug/mg. . 55 Because ethnic data is not always readily [...] 15-29 5 Kidney failure <15 (or dialysis) 56 RUN DATE: 04/01/11 [facility] NMI LIVE PAGE 1 RUN TIME: 821 Specimen Inquiry RUN USER: INTERFACE Name: MICHELLE EAGLE Lavonne Status: REG REF Re03/27/11 Age/Sex: 46/F Unit#: [id number] Location: [place] : 61 SPEC #: [id number] JAUN: 03/27/11 STATUS: CINDY REQ #: [id number] RECD: 03/27/[address]: Jadyn LITTLE,Natalie SOURCE: MISC ENTR: 03/27/[address]: Deny AL,Izaiah Noble SPDESC: TOE,LEFT ORDERED: CULT SENS/GS COMMENTS: SPECIMEN SOURCE: ULCER LEFT HALLUX ACT WKST: B 04/01/11 #2 Procedure Result Verified Site > CULTURE SENSITIVITY Final 04/01/11- 08 ML Organism 1 STREPTOCOCCUS AGALACTIAE-GR B QUANTITY [...] +AMPICILLIN/SUBLACTAM S +IMIPENEM S DEPARTMENT OF PATHOLOGY, [address] [place] [address] [place] Permit #[id number] Angus Rubi M.D. Director Noy Cordero M.D. Manager [employer] RUN DATE: 04/01/11 [facility] NMI LIVE PAGE 2 RUN TIME: 821 Specimen Inquiry RUN USER: INTERFACE Name: MICHELLE EAGLE Status: REG REF Re03/27/11 Age/Sex: 46/F Unit#: [id number] Location: [place] : 61 -- -- CONTINU ED Procedure Result Verified Site CULTURE SENSITIVITY Final (continued) 04/01/11- 821 1. STREPTOCOCCUS AGALACTIAE-GR B (continued) RX M.I.C. ------ --------- +CEFAZOLIN S +These results are deduced according to CLSI guidelines as they are related to tested antimicrobials with almost identical spectrum of activity. *These antibiotics are not available in the [facility] Formulary. Contact the Microbiology Department for any additional antibiotic reporting. > GRAM STAIN SMEAR Final 03/28/11- 07 ML POLYS NONE SMEAR: MANY EPITHELIAL CELLS MANY GRAM POSITIVE COCCI MANY GRAM NEGATIVE BACILLI MOD GRAM POSITIVE BACILLI INTERPRET CULTURE RESULTS WITH CAUTION. NUMEROUS EPITHELIAL CELLS OBSERVED ON GRAM STAIN, WHICH MAY INDICATE SURFACE CONTAMINATION. - [facility] State Permit #[id number] [address] [place] [id number] DEPARTMENT OF PATHOLOGY, [address] [place] [address] [place] Permit #[id number] Angus Rubi M.D. Director Noy Cordero M.D. Manager [place] 57 Anion gap measurement may be of limited value in the presence of any alkalosis, especially in a combined acid base disorder. . 58 A metabolite of Naproxen, O-desmethylnaproxen, has been shown to interfere with the Jendrassik-Carroll method for measuring total bilirubin. Samples from patients who have taken Naproxen have shown spurious elevation in total bilirubin levels. 59 Because ethnic data is not always readily [...] 15-29 5 Kidney failure <15 (or dialysis) 60 MICROALBUMINURIA IN A RANDOM SAMPLE IS DEFINED : MICROALBUMIN/CREATININE RATIO OF 30-299 ug/mg. . 61 CHOLESTEROL INTERPRETATION: Desirable: Less than 200 MG/DL Borderline-High Risk: 200-239 MG/DL High-Risk: 240 MG/DL and over 62 HDL INTERPRETATION: Undesirable: High Risk: Less than 40 MG/DL Desirable: Low Risk: Greater than 60 MG/DL 63 LDL INTERPRETATION: Low Risk Optimal Level: LDL Less than 100 MG/DL Near or Above Optimal: LDL 100-129 MG/DL Borderline High Risk: LDL 130-159 MG/DL High Risk: LDL 160-189 MG/DL Very High Risk: LDL Greater than 189 MG/DL Procedures Date Code Description Status 10/20/2017 27544 ECHO Transthorasic Realtime 2D W Doppler & Color Flow Completed Hosp 10/06/2017 963964750 Diabetic Retinal Eye Exam Completed 09/01/2017 [id number] Diabetic Retinal Eye Exam Completed 11/29/2016 [id number] Diabetic Retinal Eye Exam Completed 06/11/2015 [id number] Diabetic Retinal Eye Exam Completed 06/15/2011 [id number] Diabetic Foot Exam Completed 04/01/2011 [id number] Diabetic Foot Exam Completed Encounters Type Date Location Provider Dx Diagnosis Office Visit 07/17/2018 [facility] Internal Zack Parks NP I73.9 Peripheral vascular 10:20a Medicine disease, unspecified E11.40 Type 2 diabetes mellitus with diabetic neuropathy, unsp M54.5 Low back pain M25.549 Pain in joints of unspecified hand Office Visit 06/21/2018 9:30a [facility] Garnica I70.223 [facility] Shraddha Alexander M.D. arteries of extrm w rest pain, bilateral legs E66.9 Obesity, unspecified Office Visit 06/12/2018 9:00a [facility] Internal Zack Parks, E11.40 Type 2 diabetes Medicine NEONATAL ICU COORDINATOR mellitus with diabetic neuropathy, unsp I10 Essential (primary) hypertension Office Visit 05/11/2018 10:40a [facility] Internal Zack Parks E11.40 Type 2 diabetes Medicine NEONATAL ICU COORDINATOR mellitus with diabetic neuropathy, unsp I73.9 Peripheral vascular disease, unspecified R21 Rash and other nonspecific skin eruption Office Visit 02/21/2018 4:20p [facility] Internal Prakash Noble E11.40 Type 2 diabetes Medicine Scooter Barclay,FACP mellitus with diabetic neuropathy, unsp E78.2 Mixed hyperlipidemia I10 Essential (primary) hypertension Z12.31 Encntr screen mammogram for malignant neoplasm of breast Office Visit 01/03/2018 2:40p [facility], E11.40 Type 2 diabetes Endocrinology of mellitus with [facility] diabetic neuropathy, unsp I70.203 Unsp athscl [place] arteries of extremities, bilateral legs E78.5 Hyperlipidemia, unspecified E11.3599 Type 2 diab with prolif diab rtnop without mclr edema, unsp Z79.4 penitentiary (current) use of insulin E11.21 Type 2 diabetes mellitus with diabetic nephropathy Office Visit 12/08/2017 1:40p [facility] Internal Zack Parks, Z01.818 Encounter for other Medicine NEONATAL ICU COORDINATOR preprocedural examination H26.9 Unspecified cataract E11.40 Type 2 diabetes mellitus with diabetic neuropathy, unsp I10 Essential (primary) hypertension Z86.73 Prsnl hx of TIA (TIA), and cereb infrc w/o resid deficits Office Visit 12/06/2017 4:00p [facility], E11.40 Type 2 diabetes Endocrinology of mellitus with [facility] diabetic neuropathy, unsp I10 Essential (primary) hypertension E78.2 Mixed hyperlipidemia Office Visit 11/28/2017 9:00a [facility] Internal Zack Parks, E11.40 Type 2 diabetes Medicine NEONATAL ICU COORDINATOR mellitus with diabetic neuropathy, unsp I10 Essential (primary) hypertension R42 Dizziness and giddiness Office Visit 11/17/2017 Neurohospital[facility] Pedro Andrew I65.1 Occlusion and 10:00a Nikunj Khan M.D. stenosis of basilar artery Z86.73 Prsnl hx of TIA (TIA), and cereb infrc w/o resid deficits Office Visit 10/27/2017 3:40p [facility] Internal Zack Parks, E11.40 Type 2 diabetes Medicine NEONATAL ICU COORDINATOR mellitus with diabetic neuropathy, unsp I10 Essential (primary) hypertension E78.2 Mixed hyperlipidemia G45.9 Transient cerebral ischemic attack, unspecified Office Visit 10/20/2017 Neurohospitalist Pedro Andrew G45.8 Oth transient 7:00a Nikunj Khan M.D. 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 cerebral ischemic attack, unspecified Office Visit 10/19/2017 Neurohospitalist Pedro Andrew G45.8 Oth transient 7:00a Clinic Chilango Khan. 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 ischemic attack, Hospitalists unspecified Office Visit 09/26/2017 [facility] Internal Zack Parks NP Z01.818 Encounter for 10:00a Medicine other preprocedural examination H26.9 Unspecified cataract E11.40 Type 2 diabetes mellitus with diabetic neuropathy, unsp I10 Essential (primary) hypertension Office Visit 04/07/2016 2:40p [facility] Internal Prakash Noble S82.002D Unsp fracture Medicine - Scooter Barclay,FACP of left [address] patella, subs for clos fx w routn heal E11.40 Type 2 diabetes mellitus with diabetic neuropathy, unsp Office Visit 03/17/2015 2:30p [facility] Internal Kei Chun, E11.40 Type 2 diabetes Medicine - NEONATAL ICU COORDINATOR mellitus with [address] diabetic neuropathy, unsp 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 E78.2 Mixed hyperlipidemia Office Visit 03/07/2014 8:50a [facility] Internal Prakash Noble 250.02 Diabetes Destiny Barclay M.D.,FACP Mellitus W/O Compl Type II Or Unspec Type Uncontrol 362.02 Diabetic Retinopathy Proliferative Office Visit 12/06/2013 [facility] Internal Prakash Noble 250.62 Diabetes W/ 9:30a Destiny Barclay M.D.,FACP Neurological Manifestations Type II Uncontrolled 250.42 Diabetes W/ Renal Manifestations Type II Uncontrolled Office Visit 10/26/2013 [facility] Internal Prakash Noble 250.42 Diabetes W/ Renal 9:40a Destiny Barclay M.D.,FACP Manifestations Type II Uncontrolled Office Visit 09/14/2013 [facility] Internal Prakash Noble 250.62 Diabetes W/ 2:40p Destiny Barclay M.D.,FACP Neurological Manifestations Type II Uncontrolled 362.02 Diabetic Retinopathy Proliferative Office Visit 02/02/2012 2:40p [facility] Internal Prakash Noble 250.02 Diabetes Destiny Barclay M.D.,FACP Mellitus W/O Compl Type II Or Unspec Type Uncontrol 686.1 Pyogenic Granuloma Office Visit 10/26/2011 9:00a [facility] Internal Medicine Richellenery Casanova, N.P. 782.3 Edema 250.02 Diabetes Mellitus W/O Compl Type II Or Unspec Type Uncontrol V76.10 Screening For Malignant Neoplasm Breast Office Visit 06/24/2011 [facility] Internal Prakash Noble V72.81 Examination 10:30a Destiny Barclay M.D.,FAC Preoperative Cardiovascular 727.1 Bunion 250.02 Diabetes Mellitus W/O Compl Type II Or Unspec Type Uncontrol 272.2 Hyperlipidemia Mixed Office Visit 05/06/2011 3:40p [facility] Internal Prakash Noble 730.17 Osteomyelitis Destiny Barclay M.D.,FACP Chronic Ankle & Foot 250.02 Diabetes Mellitus W/O Compl Type II Or Unspec Type Uncontrol Office Visit 04/06/2011 1:45p [facility] Internal Michelle Justin, 681.9 Cellulitis & Medicine Scooter Abscess Of Unspec Digit 707.15 Ulcer Of Other Part Of Foot Office Visit 04/01/2011 2:00p [facility] Internal Michelle 681.9 Cellulitis & Destiny Justin M.D. Abscess Of Unspec Digit Office Visit 03/25/2011 9:10a [facility] Internal Prakash Noble 250.02 Diabetes Mellitus Destiny Barclay, W/O Compl Type II Scooter,FACP Or Unspec Type Uncontrol 707.15 Ulcer Of Other Part Of Foot Office Visit 01/01/2011 12:00p DO Not Use Shraddha Noble 723.1 Cervicalgia AT Lori Barclay M.D.,FACP Office Visit 12/09/2010 11:10a DO Not Use Shraddha Noble 250.02 Diabetes Mellitus AT Lori Barclay M.D.,FACP W/O Compl Type II Or Unspec Type Uncontrol 272.2 Hyperlipidemia Mixed Office Visit 10/28/2010 1:45p DO Not Use Shraddha Noble 368.9 Visual AT Lori Barclay M.D.,FACP Disturbances Unspec 250.62 Diabetes W/ Neurological Manifestations Type II Uncontrolled Office Visit 07/29/2010 DO Not Use [employer] Analyst Prakash Noble 250.62 Diabetes W/ 4:00p AT Lori Barclay M.D.,FACP Neurological Manifestations Type II Uncontrolled 357.2 Polyneuropathy In Diabetes Office Visit 06/16/2010 DO Not Use Thermal Intelligence Analyst Prakash Noble 250.62 Diabetes W/ 9:40a AT Lori Barclay M.D.,FAC Neurological Manifestations Type II Uncontrolled 362.02 Diabetic Retinopathy Proliferative 272.0 Hypercholesterolemia Pure Office Visit 05/14/2010 DO Not Use [employer] Intelligence Analyst Prakash Noble 250.62 Diabetes W/ 10:40a AT Lori Barclay M.D.,FACP Neurological Manifestations Type II Uncontrolled Office Visit 05/01/2010 DO Not Use Thermal Intelligence Analyst Prakash Noble 250.02 Diabetes Mellitus 3:20p AT Lori Barclay M.D.,FACP W/O Compl Type II Or Unspec Type Uncontrol V77.1 Screening Diabetes Mellitus 707.15 Ulcer Of Other Part Of Foot Plan of Treatment Future Appointment(s):09/08/2018 9:20 am - Zack Parks NP at [facility] Internal Qgsebpro19/24/2019 - Zack Parks NPI73.9 Peripheral vascular disease, unspecifiedComments:I recommend that you set up a meeting with Dr. Alexander to discuss possible treatment.E11.40 Type 2 diabetes mellitus with diabetic neuropathy, unspecifiReferral:Pedro Khan MD, NeurologyFollow up:f/u M54.5 Low back painM25.549 Pain in joints of unspecified hand
[2018-08-20 18:14] VITALS: BP 151/90
[2018-08-20] MEDS ORDERED: HYDROcodone/ACETAMIN 5-325 MG* 1 TAB PO ONE (18:48)
--- NOTE | 2018-08-20 19:51 | UC ---
Shoulder Pain HPI - HPI Summary HPI Summary: Right shoulder pain---began really bad yesterday after walking the dog and playing ball out side limited ROM right shoulder n/m/c intact distally - History of Current Complaint Chief Complaint: UCUpperExtremity Stated Complaint: R SHOULDER INJURY Time Seen by Provider: 08/20/18 17:56 Hx Obtained From: Patient Hx Last Menstrual Period: 04/03/17 ?: No Onset/Duration: Gradual Onset, Lasting Days - 1, Still Present Timing: Constant Pain Intensity: 5 Pain Scale Used: 0-10 Numeric Character: Dull, Aching Aggravating Factor(s): Movement Alleviating Factor(s): Nothing Associated Signs And Symptoms: Positive: Negative Related History: Dominant Hand Right - Allergies/Home Medications Allergies/Adverse Reactions: Allergies Allergy/AdvReac Type Severity Reaction Status Date / Time pregabalin Allergy Severe Swelling Verified 08/20/18 17:53 Penicillins Allergy Rash Verified 08/20/18 17:53 Home Medications: Home Medications Aflibercept [Eylea] 2 mg IO 08/20/18 [History] traMADol TAB* [Ultram*] 100 mg PO BEDTIME PRN 08/20/18 [History Confirmed ] PMH/Surg Hx/FS Hx/Imm Hx Previously Healthy: No Endocrine History: Diabetes, Dyslipidemia Cardiovascular History: Hypertension Other History Of: Negative For: Anticoagulant Therapy - Surgical History Surgical History: Yes Surgery Procedure, Year, and Place: 2012 L foot surgery [facility]. 1997 L knee surgery TUMOR REMOVED [facility]. cataract surgery 10/18/17 - Family History Known Family History: Positive: Diabetes - Social History Occupation: Disabled Lives: With Family Alcohol Use: None Substance Use Type: None Smoking Status (MU): Former Smoker Type: Cigarettes Amount Used/How Often: FEW CIGS/DAYS Length of Time of Smoking/Using Tobacco: FEW YEARS YOUNG ADULT Have You Smoked in the Last Year: No When Did the Patient Quit Smoking/Using Tobacco: 1984 - Immunization History Most Recent Influenza Vaccination: never Review of Systems All Other Systems Reviewed And Are Negative: Yes Constitutional: Positive: Negative Skin: Positive: Negative Eyes: Positive: Negative ENT: Positive: Negative Respiratory: Positive: Negative Cardiovascular: Positive: Negative Gastrointestinal: Positive: Negative Genitourinary: Positive: Negative Motor: Positive: Decreased ROM - right shoulder Musculoskeletal: Positive: Arthralgia - right shoulder Neurological: Positive: Negative Is Patient Immunocompromised?: Yes Physical Exam Triage Information Reviewed: Yes Appearance: Well-Appearing, Well-Nourished, Pain Distress Vital Signs: Initial Vital Signs Temp 99.5 F 08/20/18 17:55 Pulse 108 08/20/18 17:55 Resp 18 08/20/18 17:55 BP 151/90 08/20/18 17:55 Pulse Ox 98 08/20/18 17:55 Vital Signs Reviewed: Yes Eye Exam: Normal Eyes: Positive: Conjunctiva Clear ENT Exam: Normal ENT: Positive: Normal ENT inspection, Hearing grossly normal. Negative: Trismus , Muffled voice, Hoarse voice Dental Exam: Normal Neck exam: Normal Neck: Positive: Supple, Nontender Respiratory Exam: Normal Respiratory: Positive: Chest non-tender, No respiratory distress, No accessory muscle use Cardiovascular Exam: Normal Cardiovascular: Positive: RRR, Pulses Normal, Brisk Capillary Refill Musculoskeletal Exam: Other Musculoskeletal: Positive: No Edema, Strength Limited @ - right shoulder, ROM Limited @ - right shoulder Neurological Exam: Normal Neurological: Positive: Alert, Muscle Tone Normal Psychological Exam: Normal Skin Exam: Normal Diagnostics - Radiology No standard instances Radiology Interpretation Completed By: ED Physician - calcific tendonitis right shoulder Shoulder Course/Dx - Course Course Of Treatment: sling---stop ultram use hydrocodone follow with orthopedic MD---also follow blood pressure with pcp - Differential Dx/Diagnosis Provider Diagnosis: Hypertension, Calcific tendinitis of right shoulder Discharge - Sign-Out/Discharge Documenting (check all that apply): Patient Departure All imaging exams completed and their final reports reviewed: No Studies - Discharge Plan Condition: Stable Disposition: HOME Prescriptions: Hydrocodone/Acetaminophen [Hydrocodone-Acetamin 5-325 mg] 1 - 2 each PO Q6HR PRN #20 tablet MDD 8 PRN Reason: Pain Patient Education Materials: Calcific Tendinitis (ED), Hypertension (ED) Referrals: Ralf Grewal MD [Medical Doctor] - 2 Days Prakash Barclay MD [Primary Care Provider] - 2 Weeks - Billing Disposition and Condition Condition: STABLE Disposition: Home
== END 2018-08-20 19:08 | disposition home or self-care (01) ==
LOC: UCEAST 17:48
DX: I10 Essential (primary) hypertension (principal); M75.31 Calcific tendinitis of right shoulder
CPT/HCPCS: 99212; G0463